=== PATIENT | female | born 1955 | race Caucasian/White ===

== ENCOUNTER 2020-03-29 15:00 | Outpatient (REF) | payer MEDICARE, MEDICAID, SELFPAY ==
--- NOTE | 2020-03-29 15:12 | XR_ITS ---
EXAMINATION: XR LUMBOSACRAL SPINE CLINICAL INFORMATION: Low back injury COMPARISON: Previous x-ray February 2018 and lumbar spine MRI October 2006 TECHNIQUE: Three views of the lumbosacral spine. FINDINGS: Bone alignment is normal. No fracture or dislocation is seen. There is degenerative disc disease at L1-L2. Disc spaces are otherwise normal. There is a sacralization of the right L5 transverse process. XR/XR lumbar spine 2-3V IMPRESSION: Degenerative disc disease at L1 to and sacralization of the right L5 transverse process.
== END 2020-03-29 15:01 | disposition home or self-care (01) ==
LOC: HO.HMGCX 15:00
PROVIDERS: PCP Internal Medicine; Visit Provider Nurse Practitioner Family
DX: S39.92XA Unspecified injury of lower back, initial encounter (principal)
CPT/HCPCS: 72100

== ENCOUNTER → 2020-04-12 14:48 | Outpatient (BNVA) | payer MEDICARE, MEDICAID, SELFPAY | PROVIDERS: PCP Internal Medicine; Visit Provider Urology | DX: Z13.89 Encounter for screening for other disorder (principal) | CPT/HCPCS: Q3014 ==

== ENCOUNTER 2020-04-29 10:20 | Outpatient (REF) | payer MEDICARE, MEDICAID, SELFPAY | END 2020-04-29 10:21 | disposition home or self-care (01) | LOC: HO.LAB 10:20 | PROVIDERS: Visit Provider Internal Medicine | DX: Z20.822 Contact with and (suspected) exposure to COVID-19 (principal) | CPT/HCPCS: 36415; C9803; U0003 ==

== ENCOUNTER 2020-06-28 06:07 | Outpatient (REF) | payer MEDICARE, MEDICAID, SELFPAY ==
[2020-06-28 11:37] LABS: Alanine Aminotransferase 23 U/L (0-31); Aspartate Amino Transferase 20 U/L (5-31); Cholesterol 206 mg/dL; HDL Cholesterol 57 mg/dL; LDL Cholesterol Calculated 123 mg/dl; Triglycerides 130 mg/dL
[2020-06-28 11:59] LABS: Vitamin D 25-OH Total 45.2 ng/mL (>30)
== END 2020-06-28 06:08 | disposition home or self-care (01) ==
LOC: HO.HMGCLDS 06:07
PROVIDERS: PCP Internal Medicine; Visit Provider Internal Medicine
DX: E78.2 Mixed hyperlipidemia (principal); Z78.0 Asymptomatic menopausal state
CPT/HCPCS: 36415; 80061; 82306; 84450; 84460

== ENCOUNTER 2020-10-03 09:53 | Outpatient (REF) | payer MEDICARE, MEDICAID, SELFPAY ==
--- NOTE | ~2020-10-03 | US_ITS ---
EXAMINATION: US RETROPERITONEAL LIMITED (RENAL ONLY) CLINICAL INFORMATION: Cyst of kidney. COMPARISON: Ultrasound renals 10/29/2018 and 10/30/2017. CT abdomen/pelvis 10/31/2011. TECHNIQUE: Real-time imaging of the kidneys. FINDINGS: RIGHT KIDNEY: 12 x 4.4 x 5.2 cm (SAG x AP x TRV). The kidney is normal in size, contour, and echogenicity. Renal cortical thickness is normal. No calculi or focal parenchymal lesions. No hydronephrosis. LEFT KIDNEY: 11.4 x 5.2 x 5.1 cm (SAG x AP x TRV). The kidney is normal in size, contour, and echogenicity. Renal cortical thickness is normal. No renal calculi or hydronephrosis. There are 3 anechoic cysts. 1. A lower pole cyst measuring 5.8 x 4.9 x 5.2 cm. 2. A lower pole cyst measuring 4.6 x 3.5 x 3.9 cm. 3. An upper pole cyst measuring 2.2 x 2.0 x 2.3 cm. US/US renal BI IMPRESSION: Multiple left renal cysts. There are no echogenic renal calculi or hydronephrosis.
== END 2020-10-03 09:54 | disposition home or self-care (01) ==
LOC: HO.US 09:53
PROVIDERS: PCP Internal Medicine; Visit Provider Urology
DX: N28.1 Cyst of kidney, acquired (principal)
CPT/HCPCS: 76775

== ENCOUNTER 2020-12-02 09:42 | Outpatient (REF) | payer MEDICARE, MEDICAID, SELFPAY ==
--- NOTE | ~2020-12-02 | XR_ITS ---
EXAMINATION: XR THORACIC SPINE CLINICAL INFORMATION: Back pain. COMPARISON: None TECHNIQUE: 3 views of the thoracic spine were obtained. FINDINGS: There is normal thoracic kyphosis. There is minimal scoliosis. The vertebral heights, alignment and disc heights are normal. No visible acute fracture or dislocation seen. No lytic or sclerotic process seen. The paravertebral soft tissues are normal. There are postsurgical changes in the mediastinum from previous intervention. XR/XR thoracic spine 3V IMPRESSION: Minimal scoliosis. Otherwise unremarkable dorsal spine exam.
== END 2020-12-02 09:43 | disposition home or self-care (01) ==
LOC: HO.HMGCX 09:42
PROVIDERS: PCP Internal Medicine
DX: R39.15 Urgency of urination (principal); R35.1 Nocturia; N28.1 Cyst of kidney, acquired; M54.9 Dorsalgia, unspecified; Z88.5 Allergy status to narcotic agent; Z88.7 Allergy status to serum and vaccine; Z88.8 Allergy status to other drugs, medicaments and biological substances
CPT/HCPCS: 51798; 72072; 99212

== ENCOUNTER 2021-03-07 05:59 | Outpatient (REF) | payer MEDICARE, MEDICAID, SELFPAY ==
[2021-03-07 11:48] LABS: MANUAL DIFF FLAG NO
[2021-03-07 11:54] LABS: Basophils Absolute Auto 0.1 X10*3/uL (0.0-0.2); Basophils Percent Auto 0.9 % (0-2); Eosinophils Absolute Auto 0.2 X10*3/uL (0.0-0.4); Eosinophils Percent Auto 2.7 % (0-4); Hematocrit 41.3 % (37.0-47.0); Hemoglobin 13.5 g/dl (12.0-16.0); Imm Gran Abs Auto 0.02 X10*3/uL (0.00-0.03); Imm Gran Pct Auto 0.2 % (0.0-0.4); Lymphocytes Absolute Auto 2.7 X10*3/uL (1.2-4.9); Lymphocytes Percent Auto 31.2 % (20-40); Mean Corpuscular HGB Conc 32.7 g/dl (31.0-35.0); Mean Corpuscular Hemoglobin 29.3 pg (27.0-33.0); Mean Corpuscular Volume 89.8 fL (80.0-98.0); Mean Platelet Volume 11.2 fL (9.4-12.3); Monocytes Absolute Auto 0.9 X10*3/uL (0.1-1.2); Monocytes Percent Auto 10.4 % (2-11); Neutrophils Absolute Auto 4.7 x10*3/uL (2.0-8.3); Neutrophils Percent Auto 54.6 % (45-73); Platelet Count 215 X10*3/uL (160-400); Red Cell Distribution Width 13.1 % (11.0-16.0); White Blood Count 8.7 X10*3/uL (4.8-10.8)
[2021-03-07 12:09] LABS: Alanine Aminotransferase 22 U/L (0-31); Anion Gap 12 (12-20); Aspartate Amino Transferase 19 U/L (5-31); Blood Urea Nitrogen 10 mg/dL (9-16); Calcium 9.4 mg/dL (8.4-10.2); Carbon Dioxide 27 mmol/L (22-29); Chloride 104 mmol/L (96-108); Cholesterol 195 mg/dL; Estimated Glomerular Filt Rate > 60; Glucose Fasting 114 mg/dL (60-99); HDL Cholesterol 37 mg/dL; LDL Cholesterol Calculated 100 mg/dl; Potassium 4.2 mmol/L (3.3-5.1); Sodium 139 mmol/L (135-145); Triglycerides 293 mg/dL
[2021-03-07 12:32] LABS: Vitamin D 25-OH Total 28.1 ng/mL (>30)
== END 2021-03-07 06:00 | disposition home or self-care (01) ==
LOC: HO.HMGCLDS 05:59
PROVIDERS: PCP Internal Medicine; Visit Provider Internal Medicine
DX: E78.2 Mixed hyperlipidemia (principal); K21.00 Gastro-esophageal reflux disease with esophagitis, without bleeding; I10 Essential (primary) hypertension; Z78.0 Asymptomatic menopausal state
CPT/HCPCS: 36415; 80048; 80061; 82306; 84450; 84460; 85025

== ENCOUNTER 2021-03-31 08:06 | Outpatient (REF) | payer MEDICARE, MEDICAID, SELFPAY ==
--- NOTE | ~2021-03-31 | MM_ITS ---
EXAMINATION: BONE DENSITOMETRY CLINICAL INDICATION: Other specified disorders of bone density and structure. COMPARISON: Previous BD dated 07/22/2018 and baseline BD dated 12/31/2008. TECHNIQUE: Using a [employer] DXA System (software version: 13.1) manufactured by [employer], dual-energy x-ray absorptiometry was performed of the lumbar spine and left hip. The images are of good technical quality. Summary results are attached. FINDINGS: AP SPINE L1-L4: Current: BMD 1.071 g/cm2, Z-score 0.2, T-score -0.9, normal, 3.7% increase from previous, 20.5% increase from baseline (<5% change is not significant). Prior: BMD 1.033 g/cm2. Baseline: BMD 0.889 g/cm2. LEFT FEMUR, NECK: Current: BMD 0.999 g/cm2, Z-score 0.9, T-score -0.3, normal. Prior: BMD 0.971 g/cm2. Baseline: BMD 0.931 g/cm2. LEFT FEMUR, TOTAL: Current: BMD 1.082 g/cm2, Z-score 1.5, T-score 0.6, normal, 1.3% increase from previous, 8.2% increase from baseline (<5% change is not significant). Prior: BMD 1.068 g/cm2. Baseline: BMD 1.000 g/cm2. IDENTIFIED RISK FACTORS: Rheumatoid arthritis, renal, recurrent falls. Early menopause, secondary osteoporosis, bilateral oophorectomy. HISTORY OF FRACTURE: None listed. MEDICATIONS: Calcium supplements or multivitamin, vitamin D, bisphosphonates. MM/XR DEXA axial skeleton IMPRESSION: 1. DIAGNOSIS: Normal bone density based on the lowest T-score value of -0.9 in the lumbar spine applying World Health Organization criteria. 2. 10-YEAR FRACTURE RISK PREDICTION, FRAX: Major osteoporotic fracture (clinical spine, forearm, hip or shoulder) 4.8%. Hip fracture 0.2%. 3. Treatment Recommendations: NOF guidelines recommend consideration for treatment in postmenopausal women and men age 50 and older presenting with the following: -A hip or vertebral (clinical or morphometric) fracture. -T-score less than or equal to -2.5 at the femoral neck or spine after appropriate evaluation to exclude secondary causes. -Low bone mass at the hip or spine and a 10-year fracture probability by FRAX of greater than or equal to 3% for hip fracture or greater than or equal to 20% for major osteoporotic fracture based on the [place] adapted WHO algorithm. 4. Other Recommendations: All treatment decisions require clinical judgment and consideration of individual patient factors, including patient preferences, comorbidities, previous drug use, risk factors not captured in the FRAX model (e.g. frailty, falls, vitamin D deficiency, increased bone turnover, interval significant decline in bone density) and possible under or overestimation of fracture risk by FRAX. FUTURE SCAN RECOMMENDATION: People with diagnosed cases of osteoporosis or at high risk for fracture should have regular bone mineral density tests. For patients eligible for Medicare, routine testing is allowed once every 2 years. The testing frequency can be increased to one year for patients who have rapidly progressing disease, those who are receiving or discontinuing medical therapy to restore bone mass, or have additional risk factors.
== END 2021-03-31 08:07 | disposition home or self-care (01) ==
LOC: HO.MAMMO 08:06
PROVIDERS: Visit Provider Internal Medicine
DX: M85.88 Other specified disorders of bone density and structure, other site (principal); M06.9 Rheumatoid arthritis, unspecified; Z91.81 History of falling; Z90.722 Acquired absence of ovaries, bilateral; Z78.0 Asymptomatic menopausal state
CPT/HCPCS: 77080

== ENCOUNTER 2021-06-30 06:10 | Outpatient (REF) | payer MEDICARE, MEDICAID, SELFPAY ==
[2021-06-30 12:27] LABS: Alanine Aminotransferase 21 U/L (0-31); Anion Gap 12 (12-20); Aspartate Amino Transferase 23 U/L (5-31); Blood Urea Nitrogen 12 mg/dL (9-16); Calcium 9.4 mg/dL (8.4-10.2); Carbon Dioxide 27 mmol/L (22-29); Chloride 105 mmol/L (96-108); Cholesterol 183 mg/dL; Estimated Glomerular Filt Rate > 60; Glucose Fasting 123 mg/dL (60-99); HDL Cholesterol 40 mg/dL; LDL Cholesterol Calculated 104 mg/dl; Sodium 140 mmol/L (135-145); Triglycerides 198 mg/dL
[2021-06-30 12:31] LABS: Vitamin D 25-OH Total 63.8 ng/mL (>30)
== END 2021-06-30 06:11 | disposition home or self-care (01) ==
LOC: HO.HMGCLDS 06:10
PROVIDERS: Visit Provider Internal Medicine
DX: E78.2 Mixed hyperlipidemia (principal); R73.01 Impaired fasting glucose; Z78.0 Asymptomatic menopausal state
CPT/HCPCS: 36415; 80048; 80061; 82306; 84450; 84460

== ENCOUNTER 2021-12-11 06:05 | Outpatient (REF) | payer MEDICARE, MEDICAID, SELFPAY ==
[2021-12-11 12:08] LABS: Alanine Aminotransferase 19 U/L (0-31); Anion Gap 13 (12-20); Aspartate Amino Transferase 21 U/L (5-31); Blood Urea Nitrogen 11 mg/dL (9-16); Calcium 9.2 mg/dL (8.4-10.2); Carbon Dioxide 25 mmol/L (22-29); Chloride 108 mmol/L (96-108); Cholesterol 200 mg/dL; Estimated Glomerular Filt Rate > 60; Glucose Fasting 111 mg/dL (60-99); HDL Cholesterol 43 mg/dL; LDL Cholesterol Calculated 120 mg/dl; Sodium 142 mmol/L (135-145); Triglycerides 185 mg/dL
[2021-12-11 12:14] LABS: Vitamin D 25-OH Total 39.1 ng/mL (>30)
== END 2021-12-11 06:06 | disposition home or self-care (01) ==
LOC: HO.HMGCLDS 06:05
PROVIDERS: PCP Internal Medicine; Visit Provider Internal Medicine
DX: E78.2 Mixed hyperlipidemia (principal); M85.88 Other specified disorders of bone density and structure, other site; R73.01 Impaired fasting glucose; Z78.0 Asymptomatic menopausal state
CPT/HCPCS: 36415; 80048; 80061; 82306; 84450; 84460

== ENCOUNTER 2021-12-13 09:44 | Outpatient (REF) | payer MEDICARE, MEDICAID, SELFPAY ==
--- NOTE | ~2021-12-13 | US_ITS ---
EXAMINATION: US RETROPERITONEAL LIMITED (RENAL ONLY) CLINICAL INFORMATION: Cyst of kidney. COMPARISON: Ultrasound renal 10/03/2020. Ultrasound renals only 10/29/2018. TECHNIQUE: Real-time imaging of the kidneys. FINDINGS: RIGHT KIDNEY: 11.9 x 4.83 x 5.2 cm (SAG x AP x TRV). The kidney is normal in size, contour, and echogenicity. Renal cortical thickness is normal. No calculi or focal parenchymal lesions. No hydronephrosis. LEFT KIDNEY: 10.6 x 6.4 x 6.1 cm (SAG x AP x TRV). The kidney is normal in size, contour, and echogenicity. Renal cortical thickness is normal. There are 3 left renal cysts. There is a 7 x 5 x 7 cm simple cyst in the midpole. This measured 5.8 x 4.9 x 5.2 cm on previous exam and is likely increased in size. There is a 4.2 x 4 x 3.4 cm simple cyst in the lower pole. There is a 2.4 x 2 x 1.7 cm simple cyst in the upper pole. These are unchanged. No renal calculi or hydronephrosis. US/US renal BI IMPRESSION: Left renal cysts. There is slight interval increase in size in the largest cyst in the midpole. Remainder of the left renal cysts are unchanged. Normal right kidney..
== END 2021-12-13 09:45 | disposition home or self-care (01) ==
LOC: HO.US 09:44
DX: N28.1 Cyst of kidney, acquired (principal)
CPT/HCPCS: 76775

== ENCOUNTER 2022-03-27 06:51 | Outpatient (REF) | payer MEDICARE, MEDICAID, SELFPAY ==
[2022-03-27 14:00] LABS: Alanine Aminotransferase 21 U/L (0-31); Anion Gap 9 (12-20); Aspartate Amino Transferase 18 U/L (5-31); Blood Urea Nitrogen 12 mg/dL (9-16); Calcium 9.6 mg/dL (8.4-10.2); Carbon Dioxide 31 mmol/L (22-29); Chloride 106 mmol/L (96-108); Cholesterol 216 mg/dL; Estimated Glomerular Filt Rate > 60; Glucose Fasting 102 mg/dL (60-99); HDL Cholesterol 45 mg/dL; LDL Cholesterol Calculated 137 mg/dl; Potassium 4.3 mmol/L (3.3-5.1); Sodium 142 mmol/L (135-145); Triglycerides 173 mg/dL; Vitamin D 25-OH Total 41.4 ng/mL (>30)
[2022-03-27 15:21] LABS: Estimated Average Glucose 126 mg/dL
== END 2022-03-27 06:52 | disposition home or self-care (01) ==
LOC: HO.HMGCLDS 06:51
PROVIDERS: PCP Internal Medicine; Visit Provider Internal Medicine
DX: Z00.01 Encounter for general adult medical examination with abnormal findings (principal); R73.01 Impaired fasting glucose; E78.2 Mixed hyperlipidemia; E89.40 Asymptomatic postprocedural ovarian failure; Z85.3 Personal history of malignant neoplasm of breast
CPT/HCPCS: 36415; 80048; 80061; 82306; 83036; 84450; 84460

== ENCOUNTER 2022-08-07 06:00 | Outpatient (REF) | payer MEDICARE, MEDICAID, SELFPAY ==
[2022-08-07 12:12] LABS: Estimated Average Glucose 123 mg/dL; Hemoglobin A1c % 5.9 %
[2022-08-07 12:27] LABS: Alanine Aminotransferase 20 U/L (0-31); Aspartate Amino Transferase 19 U/L (5-31); Cholesterol 232 mg/dL; Glucose Fasting 112 mg/dL (60-99); HDL Cholesterol 42 mg/dL; LDL Cholesterol Calculated 117 mg/dl; Triglycerides 369 mg/dL
== END 2022-08-07 06:01 | disposition home or self-care (01) ==
LOC: HO.HMGCLDS 06:00
PROVIDERS: PCP Internal Medicine; Visit Provider Internal Medicine
DX: E78.2 Mixed hyperlipidemia (principal); R73.01 Impaired fasting glucose; Z78.0 Asymptomatic menopausal state; Z87.39 Personal history of other diseases of the musculoskeletal system and connective tissue
CPT/HCPCS: 36415; 80061; 82306; 82947; 83036; 84450; 84460

== ENCOUNTER 2022-08-08 10:16 | Outpatient (AMB) | payer MEDICARE, MEDICAID, SELFPAY ==
--- NOTE | 2022-08-08 10:58 | MHC.PC.OV ---
Vital Signs 08/08/22 11:12 Height 5 ft 5 in Weight 160 lb BMI 26.6 BP 106/74 Blood Pressure Location Lt brachial Position Sitting Pulse 79 Pulse Source Pulse Oximeter Pulse Oximetry (%) 96 Oxygen Delivery Method Room Air Intake Visit Reasons: Follow up labs Intake Note: Pt is here to f/u her labs Allergies morphine Allergy (Severe, Verified 06/14/23 07:26) Anxiety diphenhydramine [From BENADRYL] Adverse Reaction (Intermediate, Verified 06/14/23 07:26) ANXIETY, AGITATION hydromorphone [HYDROMORPHONE] Adverse Reaction (Intermediate, Verified 06/14/23 07:26) SHAKING,CONFUSION,AGITATION, hyperacitivity codeine [Codeine] Adverse Reaction (Mild, Verified 06/14/23 07:26) AGITATION prochlorperazine [From Compazine] Adverse Reaction (Mild, Verified 06/14/23 07:26) AGITATION, hyperactivity flu vaccine Adverse Reaction (Intermediate, Uncoded 06/14/23 07:26) severe flu like symptoms Medication List - Last Reconciled 08/08/22 by Brittany Rodgers MD Advair Diskus 500-50 mcg/dose (fluticasone propion-salmeterol) 1 inh inhalation BID NS albuterol sulfate 2.5 mg (3 mL) inhalation Q6H PRN albuterol sulfate 90 mcg/actuation 2 inhalations inhalation Q6H PRN alendronate 70 mg PO QWEEK calcium carbonate (Calcium 500) 500 mg PO DAILY cholecalciferol (vitamin D3) 50 mcg PO DAILY diazepam 500f10 mg PO BEDTIME PRN dicyclomine 20 mg PO BID finasteride 1 mg PO DAILY fluocinolone-hydroq.-tretinoin 0.01-4-0.05 % 1 appl topical BEDTIME fluticasone propionate 50 mcg/actuation (Allergy Relief (fluticasone)) 1 spray intranasal DAILY hyoscyamine sulfate 0.125 mg PO BID-QID PRN ibuprofen 0 mg PO lacosamide 150 mg PO DAILY lidocaine 5% 1 patch topical DAILY loratadine 10 mg PO DAILY meclizine 12.5 mg PO TID PRN meloxicam 15 mg PO DAILY montelukast 10 mg PO DAILY nebulizers As directed omega-3 fatty acids (Fish Oil Concentrate) 1,000 mg PO DAILY omeprazole 40 mg PO DAILY onabotulinumtoxinA (Botox) intradermal peg [id number] 1-0.2-0.2 % (Artificial Tears ([id number])) 1 drp ophthalmic (eye) QID polyethylene glycol 3350 17 grams PO DAILY pravastatin 40 mg PO BEDTIME rizatriptan 0 mg PO tolterodine ER 8 mg (2 x 4 mg) PO BEDTIME 90 days Tobacco use date assessed: 08/08/22 Fall risk assessment: No Falls in past year Last assessed Fall Risk: 08/08/22 HPI Follow up labs HPI Details 67 year old lady , here for follow up on her Dyslipidemia. Take Pravastatin 40 mg daily , compliant with diet but not getting any regular exercise. Latest fasting labs showed higher triglycerides, but lower LDL cholesterol as compared to last check. She also has Prediabetes with latest fasting glucose at 112 mg/dl , but HBA1c is 5.9%. Laboratory Tests 03/27/22 08/07/22 08/07/22 07:05 06:05 06:05 Fasting Glucose 112 H Estimat Average Gl ucose 123 Hemoglobin A1c % 5.9 AST 19 ALT 20 Triglycerides 173 369 Cholesterol 216 232 LDL Cholesterol, C alc 137 117 HDL Cholesterol 45 42 25-OH Vitamin D To dana 41.4 48.0 PFSH Medical History (Updated 07/02/23 @ 13:48 by Brittany Rodgers MD) Peripheral venous insufficiency Seasonal allergies Urinary incontinence Asthma Elevated cholesterol Odynophagia Fibromyalgia affecting multiple sites History of osteopenia Hx of breast cancer Glaucoma Impaired fasting glucose Mild intermittent asthma Osteopenia of lumbar spine Swelling of lower leg Migraine Generalized anxiety disorder Irritable bowel syndrome with diarrhea History of breast cancer GERD with esophagitis Osteoarthritis Mixed dyslipidemia Renal cyst Urgency of micturition Urge incontinence Surgical History (Updated 06/14/23 @ 08:27 by Margo Mendoza) H/O vascular surgery Hx of right knee surgery Hx of sinus surgery H/O colonoscopy History of esophagogastroduodenoscopy (EGD) History of lumpectomy of right breast History of partial mastectomy of left breast History of right cataract surgery H/O bilateral oophorectomy S/P right knee arthroscopy History of foot surgery Family History Father Essential hypertension Diabetes mellitus Dyslipidemia CVA (cerebral vascular accident) Mental health disorder Mother Diabetes mellitus Dyslipidemia Essential hypertension Brother Diabetes mellitus Dyslipidemia Essential hypertension Maternal Aunt Ovarian cancer Paternal Aunt Mental health disorder Social History Housing: Apartment Alcohol intake: never Patient Tobacco Use Status: Never used Tobacco e-Cigarette/Vaping Use: Never Used Use of substances other than those prescribed or required for medical reasons: No Are you DNR?: No Advance Directives: No Advance Directives Information Provided: Yes Current occupational status: unemployed Cognitive needs: No Hearing needs: No Vision needs: No Questionnaire PHQ-9 Over the last 2 weeks, how often have you been bothered by any of the following problems? 1. Little interest or pleasure in doing things: several days 2. Feeling down, depressed, or hopeless: not at all 3. Trouble falling or staying asleep, or sleeping too much: more than half the days 4. Feeling tired or having little energy: several days 5. Poor appetite or overeating: several days 6. Feeling bad about yourself - or that you are a failure or have let yourself or your family down: not at all 7. Trouble concentrating on things, such as reading the newspaper or watching television: not at all 8. Moving or speaking so slowly that other people could have noticed. Or the opposite - being so fidgety or restless that you have been moving around a lot more than usual: not at all 9. Thoughts that you would be better off or of hurting yourself in some way: not at all Total score: 5 Depression Screening Interpretation: Negative 88345 - PHQ-9 Billing: Yes Source: Developed by Drs. Willam Goodman, Shahana Greenberg, Vic Harrison and colleagues, with an educational willis from [employer]. Thrive Questionnaire Declines Thrive assessment: No Date Thrive assessed: 08/08/22 I am a: Patient What is your living situation today?: I have a steady place to live Within the past 12 months, did the food you bought not last and you didn't have the money to get more?: Sometimes True Within the past 12 months, did you worry whether your food would run out before you got money to buy more?: Sometimes True Do you have trouble paying for medicines?: Yes Do you have trouble getting transportation to medical appointments?: No Do you have trouble paying your heating and electricity bill?: Yes Do you have trouble taking care of your child, family member or friend?: No Do you have trouble with day-to-day activities such as bathing, preparing meals, shopping, managing finances, etc.?: Yes Are you currently unemployed and looking for a job?: No Are you interested in more education?: No AUDIT C Alcohol Use Questionnaire (AUDIT-C) 1. How often do you have a drink containing alcohol?: Never Total Score: 0 INGRID-7 AMB Questionnaire INRGID-7 Date INGRID - 7 assessed: 08/08/22 Feeling nervous, anxious, or on edge: 1 = Several days Not being able to stop or control worryin = Not at all Worrying too much about different things: 1 = Several days Trouble relaxin = Several days Being so restless that it is hard to sit still: 0 = Not at all Becoming easily annoyed or irritable: 0 = Not at all Feeling afraid as if something awful might happen: 0 = Not at all Total INGRID-7 score (0-4 normal; 5-9 mild; 10-14 moderate; 15-21 severe): 3 Source: Developed by Drs. Willam Goodman, Shahana Greenberg, Vic Harrison and colleagues, with an educational willis from [employer]. INGRID-7 Assessment Billing INGRID-7 Assessment Tool: INGRID-7 Assessment 87174 Review of Systems Const Reports no additional complaints Eyes Reports no additional complaints ENT Denies dizziness, Denies nasal congestion and Denies post nasal drip Card Denies chest pain, Denies rapid heart rate, Denies lightheadedness and Denies dyspnea Resp Denies cough and Denies dyspnea GI Denies abdominal pain, Denies change in bowel habits and Denies heartburn Musc Denies abnormal gait and Reports stiffness Neuro Denies abnormal gait, Denies dizziness and Denies focal weakness Psych Reports no additional complaints Physical exam (Primary Care) Vital Signs: Last Vital Signs Pulse 79 08/08/22 11:12 BP 106/74 08/08/22 11:12 Pulse Ox 96 08/08/22 11:12 Oxygen Delivery Method Room Air 08/08/22 11:12 BMI result Body Mass Index 26.6 Tobacco/Smoking Status: Tobacco use Status Tobacco use date assessed 08/08/22 08/08/22 11:17 Patient Tobacco Use Status Never used Tobacco 08/08/22 10:58 e-Cigarette/Vaping Use Never Used 08/08/22 10:58 PHQ-9: PHQ-9 Score PHQ-9: Total score 08/08/22 11:45 Depression Screening Interpretation: Negative Thrive Assessment: Date of Thrive Assessment Date Thrive assessed 08/08/22 08/08/22 11:20 Const Other: Alert oriented x3, no acute Orientation/consciousness: patient oriented x3 HENMT Ears: external ears normal General nose exam: Normal external nose present Face and sinus: Yes face symmetric Mouth: Normal oral and palatal mucosa present, oropharynx normal and moist mucous membranes Eyes General: appearance normal, both eyes and all related structures Neck Neck: Yes full ROM and Yes supple Resp Auscultation: clear to auscultation bilaterally Cardio Other: S1-S2 present regular rate and rhythm GI Palpation (GI): Soft to palpation, nontender, no guarding and no masses Neuro General: patient oriented x3, gait normal, Normal light touch and pain sensation, no focal motor deficits, CN's II-XI intact bilaterally and normal sensation to monofilament Extrem General: Yes full ROM, Yes no joint enlargement, Yes no pedal edema and Yes normal gait Results Reviewed Results Reviewed: Laboratory Tests 08/07/22 06:05 Fasting Glucose 112 H Estimat Average Glucose 123 Hemoglobin A1c % 5.9 loreto: Teri Alexander Age/Sex: 67/F : 1955 Unit#: [id number] Attend Dr: Brittany Rodgers MD Re08/07/22 Status: DEP [facility] Disch: SPEC : [id number] PORFIRIO: 08/07/22 STATUS: COMP REQ : [id number] RECD: 08/07/[address]: Brittany Rodgers MD COMP: 08/07/22 ENTERED: 08/07/[address]: ORDERED: Glu Fasting, AST, ALT, Lipid Panel, Vitamin D 25-OH Test Result Flag Reference FBS 112 H 60-99 mg/dL A fasting glucose from 100-125 mg/dl is considered impaired (pre-diabetes). AST (GOT) 19 5-31 U/L ALT (GPT) 20 0-31 U/L Triglyceride 369 mg/dL Desirable Triglyceride: less than 150 mg/dL Borderline High Triglyceride 150-199 mg/dL High Triglyceride: 200-499 mg/dL Very High Triglyceride: greater than or equal to 5OO mg/dL Chol 232 mg/dL Desirable Cholesterol: less than 200 mg/dL Borderline High Cholesterol: 200-239 mg/dL High Cholesterol: greater than 239 mg/dL LDL Calculated 117 mg/dl Desirable LDL: less than 100 mg/dL Near Optimal/Above Optimal LDL: 110-129 mg/dL Borderline High LDL: 130-159 mg/dL High LDL: 160-189 mg/dL Very High LDL: greater than or equal to 190 mg/dL HDL 42 mg/dL Desirable HDL: greater than 40 mg/dL Note: This HDL assay may give artificially low results in patients with liver disease. Vit D 25-OH Tot 48.0 >30 ng/mL Health Based Reference Values* < 20 ng/mL Deficient 20-30 ng/mL Insufficient > 30 ng/mL Sufficient Assessment and Plan Assessment & Plan (1) Impaired fasting glucose: Code(s): R73.01 - Impaired fasting glucose Plan: Your fasting blood sugar is elevated above 100 mg/dL. Impaired glucose metabolism increases your risk for developing diabetes mellitus type 2, as well as heart attack and stroke later on. Lifestyle changes at just weight loss, healthy eating habits, and regular exercise are important, and can prevent the progression to diabetes (2) Mixed dyslipidemia: Code(s): E78.2 - Mixed hyperlipidemia Plan: Reviewed recent fasting lipid profile with patient with higher levels of triglycerides, but normal LDL cholesterol . Continue pravastatin, and [employer] 3 fatty acid supplements at the same dose , in addition to adherence to low-cholesterol diet and regular exercise, at least 30 minutes 3 to 4 times a week. Advised patient to make healthy food choices, eat more fruits, vegetables, whole grains, wild caught fish and low-fat dairy. Limit amount of meat and fried or fatty food products, as well as processed foods and fast foods. Recheck fasting lipids in 6months Orders: Orders Alanine Aminotransferase 6 Months R73.01 - Impaired fasting glucose, E78.2 - Mixed hyperlipidemia Aspartate Amino Transferase 6 Months R73.01 - Impaired fasting glucose, E78.2 - Mixed hyperlipidemia Lipid Panel 6 Months R73.01 - Impaired fasting glucose, E78.2 - Mixed hyperlipidemia Glucose Fasting 6 Months R73.01 - Impaired fasting glucose, E78.2 - Mixed hyperlipidemia Hemoglobin A1c 6 Months R73.01 - Impaired fasting glucose, E78.2 - Mixed hyperlipidemia Coding Level of Care Code Est Pt Level 4 (69263) Diagnoses Impaired fasting glucose R73.01 Mixed dyslipidemia E78.2 Additional Codes INGRID-7 Assessment Billing - INGRID-7 Assessment Tool: INGRID-7 Assessment 76262 ([id number])
[2022-08-08 11:12] VITALS: BP 106/74; PULSE 79; O2SAT 96; BMI 26.6
== END 2022-08-08 11:57 | disposition home or self-care (01) ==
LOC: HO.HMGC 10:16
PROVIDERS: PCP Internal Medicine; Visit Provider Internal Medicine
DX: R73.01 Impaired fasting glucose (principal); E78.2 Mixed hyperlipidemia
CPT/HCPCS: 99214

== ENCOUNTER 2022-12-12 09:23 | Outpatient (REF) | payer MEDICARE, MEDICAID, SELFPAY ==
--- NOTE | ~2022-12-12 | US_ITS ---
EXAMINATION: US RETROPERITONEAL LIMITED (RENAL ONLY) CLINICAL INFORMATION: Cyst of kidney, acquired. COMPARISON: Renal ultrasound 12/13/2021 and 10/03/2020. TECHNIQUE: Real-time imaging of the kidneys. FINDINGS: RIGHT KIDNEY: 12.2 x 4.5 x 6.2 cm (SAG x AP x TRV). The kidney is normal in size, contour, and echogenicity. Renal cortical thickness is normal. No calculi or focal parenchymal lesions. No hydronephrosis. LEFT KIDNEY: 11.1 x 5.9 x 4.8 cm (SAG x AP x TRV). The kidney is normal in size, contour, and echogenicity. Renal cortical thickness is normal. No calculi or focal parenchymal lesions. No hydronephrosis. At the upper pole, a 2.6 x 1.9 x 2.0 cm mildly complex cyst is seen, with fine septation. Previously, this measured 2.4 x 2.0 x 1.7 cm. At the lower pole, a 9.0 x 5.6 x 3.6 cm mildly complex cyst is seen, with fine septation. Previously, this measured 7.0 x 4.9 x 6.9 cm. These were seen on prior CT examinations as remote as 10/31/2011 (5:21 and 33). US/US renal BI IMPRESSION: Mildly complex cysts are redemonstrated within the left kidney, with dimensions as above. These are mildly increased from most recent prior ultrasound imaging.
== END 2022-12-12 09:24 | disposition home or self-care (01) ==
LOC: HO.HMGCX 09:23
PROVIDERS: PCP Internal Medicine; Visit Provider Urology
DX: N28.1 Cyst of kidney, acquired (principal)
CPT/HCPCS: 76775

== ENCOUNTER 2022-12-25 10:09 | Outpatient (AMB) | payer MEDICARE, MEDICAID, SELFPAY ==
--- NOTE | 2022-12-25 11:06 | A.OFFVIS_ITS ---
Intake Intake Visit Reasons: 1Y US(set) Intake Note: Patient is present for Follow Up Ultrasound Urology Med: Finasteride, Tolterodine Antibiotic Allergy: None Blood Thinner: None Pharmacy: [facility] Allergies diphenhydramine [From BENADRYL] Adverse Reaction (Intermediate, Verified 12/25/22 11:07) ANXIETY, AGITATION hydromorphone [HYDROMORPHONE] Adverse Reaction (Intermediate, Verified 12/25/22 11:07) SHAKING,CONFUSION,AGITATION, hyperacitivity codeine [Codeine] Adverse Reaction (Mild, Verified 12/25/22 11:07) AGITATION prochlorperazine [From Compazine] Adverse Reaction (Mild, Verified 12/25/22 11:07) AGITATION, hyperactivity flu vaccine Adverse Reaction (Intermediate, Uncoded 12/25/22 11:07) severe flu like symptoms Medication List - Last Reconciled 12/25/22 by Edil Ellington MD Advair Diskus 500-50 mcg/dose (fluticasone propion-salmeterol) 1 inh inhalation BID NS albuterol sulfate 2.5 mg (3 mL) inhalation Q6H PRN albuterol sulfate 90 mcg/actuation 2 inhalations inhalation Q6H PRN alendronate 70 mg PO QWEEK calcium carbonate (Calcium 500) 500 mg PO DAILY cholecalciferol (vitamin D3) 50 mcg PO DAILY diazepam 500f10 mg PO BEDTIME PRN dicyclomine 20 mg PO BID finasteride 1 mg PO DAILY fluocinolone-hydroq.-tretinoin 0.01-4-0.05 % 1 appl topical BEDTIME fluticasone propionate 50 mcg/actuation (Allergy Relief (fluticasone)) 1 spray intranasal DAILY hyoscyamine sulfate 0.125 mg PO BID-QID PRN ibuprofen 0 mg PO lacosamide 150 mg PO DAILY lidocaine 5% 1 patch topical DAILY loratadine 10 mg PO DAILY meclizine 12.5 mg PO TID PRN meloxicam 15 mg PO DAILY montelukast 10 mg PO DAILY nebulizers As directed omega-3 fatty acids (Fish Oil Concentrate) 2,000 mg PO BID omeprazole 40 mg PO DAILY onabotulinumtoxinA (Botox) intradermal peg 136-[id number]-uwqvohez 1-0.2-0.2 % (Artificial Tears ([id number])) 1 drp ophthalmic (eye) QID polyethylene glycol 3350 17 grams PO DAILY pravastatin 40 mg PO BEDTIME rizatriptan 0 mg PO tolterodine ER 8 mg (2 x 4 mg) PO BEDTIME 90 days HPI HPI Comments History of Present Illness Details Teri is a pleasant female. She is a patient of Dr. Rodgers. She seen for the following urologic conditions - complex renal cyst Has paraspinal muscle tenderness on examination Recommendation to get stretching program from chiropractor Renal cyst does not cause of discomfort Continue yearly review Complex renal cyst Stable on imaging Imaging - 10/10 renal ultrasound left multiple renal cysts up to 6 cm - 12/12 renal ultrasound multiple left renal cysts up to 8 cm PFS Medical History Generalized anxiety disorder GERD with esophagitis Glaucoma History of breast cancer History of osteopenia Hx of breast cancer Impaired fasting glucose Irritable bowel syndrome with diarrhea Migraine Mild intermittent asthma Mixed dyslipidemia Osteoarthritis Osteopenia of lumbar spine Renal cyst Swelling of lower leg Urge incontinence Urgency of micturition Surgical History H/O bilateral oophorectomy History of foot surgery History of lumpectomy of right breast History of partial mastectomy of left breast History of right cataract surgery S/P right knee arthroscopy Family History Father Essential hypertension Diabetes mellitus Dyslipidemia CVA (cerebral vascular accident) Mental health disorder Mother Diabetes mellitus Dyslipidemia Essential hypertension Brother Diabetes mellitus Dyslipidemia Essential hypertension Maternal Aunt Ovarian cancer Paternal Aunt Mental health disorder Social History Housing: Apartment Alcohol intake: never Patient Tobacco Use Status: Never used Tobacco e-Cigarette/Vaping Use: Never Used Current occupational status: unemployed Cognitive needs: No Hearing needs: No Vision needs: No Review of Systems Const Denies chills and Denies fever(s) Card Reports no additional complaints and Denies syncope Resp Denies cough GI Denies abdominal pain and Denies heartburn Reports as per HPI and Denies change in libido Neuro Denies syncope Psych Denies change in libido Endo Denies change in libido Physical Exam Const General: cooperative, healthy appearing, comfortable and no acute distress Orientation/consciousness: patient oriented x3 HEENT Face and sinus: Yes normal facial exam Mouth: moist mucous membranes Neck Neck: Yes normal visual inspection, Yes full ROM and Yes trachea midline Chest Chest palpation & inspection: normal inspection of the chest Resp Effort & Inspection: normal respiratory effort, able to speak in complete sentences and no respiratory distress GI Inspection: Yes normal to inspection Back/Spine/Pelvis Cervical Spine: normal cervical lordosis Thoracic/Lumbar Spine: thoracic and lumbar spine normal to inspection Skin General skin exam: no rashes or lesions noted Neuro General: patient oriented x3, gait normal, tone normal and moves all extremities Extrem General: Yes normal to inspection and Yes capillary refill normal Assessment & Plan Assessment & Plan (1) Renal cyst: Code(s): N28.1 - Cyst of kidney, acquired Plan Twelve month follow-up ultrasound Orders: Orders US renal BI 364 Days N28.1 - Cyst of kidney, acquired Patient Instructions: Imaging studies, laboratory and physical exam results were discussed and reviewed in detail. No major barriers to patient understanding were identified. An opportunity to ask questions regarding the treatment plan was provided. All questions were answered. The patient expressed understanding and agreement with the above treatment plan. The patient is aware they should contact our office by phone for worsening of their current condition or the appearance of new urologic symptoms. Compliance is encouraged with any medications and followup testing that is ordered. It is a privilege to participate in the urologic care of your patient. If you have any questions or concerns regarding treatment for the above conditions, or other urologic issues, please do not hesitate to contact me. The office telephone contact is [phone]. This note is constructed using voice recognition software. While every effort has been made to ensure accuracy stevedore dock errors may have been included. Yours sincerely, Dr Edil Ellington MD, [facility] - Urology Providers of Expert, Compassionate Care for the Genitourinary System Coding Level of Care Code Est Pt Level 4 (43990) Diagnoses Renal cyst N28.1
== END 2022-12-25 11:44 | disposition home or self-care (01) ==
PROVIDERS: PCP Internal Medicine; Visit Provider Urology
DX: N28.1 Cyst of kidney, acquired (principal)
CPT/HCPCS: 99213

== ENCOUNTER → 2022-12-25 10:09 | Outpatient (BNVA) | payer MEDICARE, MEDICAID, SELFPAY | PROVIDERS: Visit Provider Urology | DX: N28.1 Cyst of kidney, acquired (principal) | CPT/HCPCS: 99212 ==

== ENCOUNTER 2023-02-01 06:02 | Outpatient (REF) | payer MEDICARE, MEDICAID, SELFPAY ==
[2023-02-01 12:38] LABS: Estimated Average Glucose 126 mg/dL
[2023-02-01 12:46] LABS: Alanine Aminotransferase 20 U/L (0-31); Aspartate Amino Transferase 26 U/L (5-31); Cholesterol 207 mg/dL (<200); Glucose Fasting 107 mg/dL (60-99); HDL Cholesterol 43 mg/dL (>40); LDL Cholesterol Calculated 131 mg/dL (<100); Triglycerides 166 mg/dL (<150)
== END 2023-02-01 06:03 | disposition home or self-care (01) ==
LOC: HO.HMGCLDS 06:02
PROVIDERS: PCP Internal Medicine; Visit Provider Internal Medicine
DX: R73.01 Impaired fasting glucose (principal); E78.2 Mixed hyperlipidemia
CPT/HCPCS: 36415; 80061; 82947; 83036; 84450; 84460

== ENCOUNTER 2023-02-06 10:25 | Outpatient (AMB) | payer MEDICARE, MEDICAID, SELFPAY ==
--- NOTE | 2023-02-06 11:38 | A.OFFPC_ITS ---
Vital Signs 02/06/23 11:39 Height 5 ft 5 in Weight 165 lb 4 oz BMI 27.5 BP 118/76 Blood Pressure Location Rt brachial Position Sitting Pulse 76 Pulse Source Pulse Oximeter Pulse Oximetry (%) 97 Oxygen Delivery Method Room Air Intake Visit Reasons: 6m follow up Intake Note: pt is here to follow on her lab results Allergies morphine Allergy (Severe, Verified 07/02/23 14:15) Anxiety diphenhydramine [From BENADRYL] Adverse Reaction (Intermediate, Verified 07/02/23 14:15) ANXIETY, AGITATION hydromorphone [HYDROMORPHONE] Adverse Reaction (Intermediate, Verified 07/02/23 14:15) SHAKING,CONFUSION,AGITATION, hyperacitivity codeine [Codeine] Adverse Reaction (Mild, Verified 07/02/23 14:15) AGITATION prochlorperazine [From Compazine] Adverse Reaction (Mild, Verified 07/02/23 14:15) AGITATION, hyperactivity flu vaccine Adverse Reaction (Intermediate, Uncoded 07/02/23 14:15) severe flu like symptoms Medication List - Last Reconciled 07/02/23 by Brittany Rodgers MD albuterol sulfate 90 mcg/actuation 2 inhalations inhalation Q4-6H PRN alendronate 70 mg PO QWEEK calcium-vitamin D3-vitamin K 500-100-40 mg-unit-mcg 1 tab PO DAILY diazepam 5 mg PO BID PRN dicyclomine 20 mg PO QID ergocalciferol (vitamin D2) 400 units PO DAILY esomeprazole magnesium (Nexium) 40 mg PO DAILY finasteride 2.5 mg PO DAILY fluocinolone-hydroq.-tretinoin 0.01-4-0.05 % (Tri-Nyla) 1 appl topical BEDTIME fluocinolone-hydroq.-tretinoin 0.01-4-0.05 % 1 appl topical BEDTIME fluticasone propion-salmeterol 500-50 mcg/dose (Advair Diskus) 1 inh inhalation BID fluticasone propionate 50 mcg/actuation (Allergy Relief (fluticasone)) 1 spray intranasal DAILY [grab handles As directed] ibuprofen 800 mg PO DAILY PRN lacosamide (Vimpat) 150 mg PO DAILY meclizine 12.5 mg PO TID metronidazole 0.75% 1 appl topical BID montelukast 10 mg PO DAILY nebulizers As directed omega 0-vcl-dgo-fish oil 1,000 mg (120 mg-180 mg) (Fish Oil) 1 cap PO DAILY peg [id number]-[id number]-xsvhlnpu 1-0.2-0.2 % (Artificial Tears ([id number])) 1 drp ophthalmic (eye) DAILY pravastatin 20 mg (1/2 x 40 mg) PO BEDTIME Wixela Inhub 500-50 mcg/dose (fluticasone propion-salmeterol) 1 inh inhalation Q12H NS Tobacco use date assessed: 02/06/23 Fall risk assessment: 2 + Falls in past year Last assessed Fall Risk: 02/06/23 Dental Screening Dental Screen Date: 02/06/23 Did you have a dental visit in the last 12 months?: Yes Did you have a dental problem in the last 6 months where you did not have access to dental care?: No Was dental information given to patient?: Patient has dentist HPI 6m follow up HPI Details 68-year-old lady with hyperlipidemia, mi ld intermittent asthma, and prediabetes, here today for follow-up . She has been compliant with her diet, but unable to exercise much due to her chronic pain . She has been taking her medications as directed, asthma stable controlled on present inhalers [facility] Medical History (Updated 07/02/23 @ 14:27 by Brittany Rodgers MD) Peripheral venous insufficiency Seasonal allergies Urinary incontinence Fibromyalgia affecting multiple sites History of osteopenia Hx of breast cancer Glaucoma Impaired fasting glucose Mild intermittent asthma Migraine Generalized anxiety disorder Irritable bowel syndrome with diarrhea History of breast cancer GERD with esophagitis Osteoarthritis Mixed dyslipidemia Renal cyst Surgical History H/O vascular surgery Hx of right knee surgery Hx of sinus surgery H/O colonoscopy History of esophagogastroduodenoscopy (EGD) History of lumpectomy of right breast History of partial mastectomy of left breast History of right cataract surgery H/O bilateral oophorectomy S/P right knee arthroscopy History of foot surgery Family History Father Essential hypertension Diabetes mellitus Dyslipidemia CVA (cerebral vascular accident) Mental health disorder Mother Diabetes mellitus Dyslipidemia Essential hypertension Brother Diabetes mellitus Dyslipidemia Essential hypertension Maternal Aunt Ovarian cancer Paternal Aunt Mental health disorder Social History Housing: Apartment Alcohol intake: never Patient Tobacco Use Status: Never used Tobacco e-Cigarette/Vaping Use: Never Used Use of substances other than those prescribed or required for medical reasons: No Are you DNR?: No Advance Directives: No Advance Directives Information Provided: Yes Current occupational status: unemployed Cognitive needs: No Hearing needs: No Vision needs: No Questionnaire Thrive Questionnaire Date Thrive assessed: 08/08/22 INGRID-7 AMB Questionnaire INGRID-7 Date INGRID - 7 assessed: 10/06/21 Source: Developed by Drs. Willam Goodman, Shahana Greenberg, Vic Harrison and colleagues, with an educational willis from [employer]. Review of Systems Const Reports no additional complaints Eyes Reports no additional complaints ENT Denies dizziness, Denies nasal congestion and Denies post nasal drip Card Denies chest pain, Denies rapid heart rate, Denies lightheadedness and Denies dyspnea Resp Denies cough, Denies dyspnea and Denies wheezing GI Denies abdominal pain, Denies change in bowel habits and Denies heartburn Musc Denies abnormal gait and Reports stiffness Neuro Denies abnormal gait, Denies dizziness and Denies focal weakness Psych Reports no additional complaints Aller/Immun Denies wheezing Physical exam (Primary Care) Vital Signs: Last Vital Signs Pulse 76 02/06/23 11:39 BP 118/76 02/06/23 11:39 Pulse Ox 97 02/06/23 11:39 Oxygen Delivery Method Room Air 02/06/23 11:39 BMI result Body Mass Index 27.5 Tobacco/Smoking Status: Tobacco use Status Tobacco use date assessed 02/06/23 02/06/23 11:49 Patient Tobacco Use Status Never used Tobacco 02/06/23 11:38 e-Cigarette/Vaping Use Never Used 02/06/23 11:38 Thrive Assessment: Date of Thrive Assessment Date Thrive assessed 08/08/22 02/06/23 11:38 Const Other: Alert oriented x3, no acute Orientation/consciousness: patient oriented x3 HENMT Ears: external ears normal General nose exam: Normal external nose present Face and sinus: Yes face symmetric Mouth: Normal oral and palatal mucosa present, oropharynx normal and moist mucous membranes Eyes General: appearance normal, both eyes and all related structures Neck Neck: Yes full ROM and Yes supple Resp Auscultation: clear to auscultation bilaterally Cardio Other: S1-S2 present regular rate and rhythm GI Palpation (GI): Soft to palpation, nontender, no guarding and no masses Neuro General: patient oriented x3, gait normal, Normal light touch and pain sensation, no focal motor deficits, CN's II-XI intact bilaterally and normal sensation to monofilament Extrem General: Yes full ROM, Yes no joint enlargement, Yes no pedal edema and Yes normal gait Immunizations pneumoc 20-john conj-dip cr(PF) 0.5 mL IM syringe Performing Provider: Brittany Rodgers MD [facility] Administered by: Eneida Mccann CMA on 02/06/23 12:37 Dose Route Admin Location Dispensed Lot Number Expiration Date NDC Soft Shoe Dancer 0.5 mL IM Right Deltoid 0.5 mL [id number] 02/20/24 3728-6722-76 [employer] VIS Given Date VIS Provided VIS Publication Date 02/06/23 Single Vaccine 21 Eligibility Eligibility Date Funding Source Not VF Eligible 02/06/23 Private Results Reviewed Results Reviewed: Laboratory Tests 02/01/23 06:10 Estimat Average Glucose 126 Hemoglobin A1c % 6.0 Name: Teri Alexander Age/Sex: 67/F : 1955 Unit#: [id number] Attend Dr: Brittany Rodgers MD Re02/01/23 Status: DEP REF [facility] Disch: SPEC : [id number] PORFIRIO: 02/01/23 STATUS: COMP REQ : [id number] RECD: 02/01/[address]: Brittany Rodgers MD COMP: 02/01/23 ENTERED: 02/01/[address]: ORDERED: Glu Fasting, AST, ALT, Lipid Panel Test Result Flag Reference FBS 107 H 60-99 mg/dL A fasting glucose from 100-125 mg/dl is considered impaired (pre-diabetes). AST (GOT) 26 5-31 U/L ALT (GPT) 20 0-31 U/L Triglyceride 166 H <150 mg/dL Desirable Triglyceride: less than 150 mg/dL Borderline High Triglyceride 150-199 mg/dL High Triglyceride: 200-499 mg/dL Very High Triglyceride: greater than or equal to 5OO mg/dL Cholesterol 207 H <200 mg/dL Desirable Cholesterol: less than 200 mg/dL Borderline High Cholesterol: 200-239 mg/dL High Cholesterol: greater than 239 mg/dL LDL Calculated 131 H <100 mg/dL Desirable LDL: less than 100 mg/dL Near Optimal/Above Optimal LDL: 110-129 mg/dL Borderline High LDL: 130-159 mg/dL High LDL: 160-189 mg/dL Very High LDL: greater than or equal to 190 mg/dL HDL 43 >40 mg/dL Desirable HDL: greater than 40 mg/dL Note: This HDL assay may give artificially low results in patients with liver disease. Assessment and Plan Assessment & Plan (1) Mild intermittent asthma: Code(s): J45.20 - Mild intermittent asthma, uncomplicated Qualifiers: Asthma complication type: uncomplicated Qualified Code(s): J45.20 - Mild intermittent asthma, uncomplicated Plan: Continue with current inhalers, Prevnar 20 given today (2) Impaired fasting glucose: Code(s): R73.01 - Impaired fasting glucose Plan: Continue with Lifestyle changes at just weight loss, healthy eating habits, and regular exercise are important, and can prevent the progression to diabetes (3) Mixed dyslipidemia: Code(s): E78.2 - Mixed hyperlipidemia Plan: Fasting lipid panel reviewed with patient, LDL cholesterol slightly higher than last check, continued on pravastatin and [place] 3 fatty acid supplements (4) Hx of breast cancer: Comment: Code(s): Z85.3 - Personal history of malignant neoplasm of breast Plan: Currently followed at [facility] (5) History of osteopenia: Code(s): Z87.39 - Personal history of other diseases of the musculoskeletal system and connective tissue Plan: Repeat bone density scan ordered, continue with taking cholecalciferol and vitamin D3 supplement, advised to do some form of weight-bearing exercise, even with arm, continue with alendronate once a week Orders: Orders Pneumococcal 20 Immunization 02/06/23 Z23 - Encounter for immunization XR DEXA axial skeleton 02/06/23 Z87.39 - Personal history of other diseases of the musculoskeletal system and connective tissue, Z78.0 - Asymptomatic menopausal state Medications: New [grab handles] As directed 1 ea 0RF M79.7 - Fibromyalgia, Z85.3 - Personal history of malignant neoplasm of breast, M19.90 - Unspecified osteoarthritis, unspecified site Coding Level of Care Code Est Pt Level 4 (96034) Diagnoses Mild intermittent asthma without complication J45.20 Asthma complication type: uncomplicated Impaired fasting glucose R73.01 Mixed dyslipidemia E78.2 Hx of breast cancer Z85.3 History of osteopenia Z87.39
[2023-02-06 11:39] VITALS: BP 118/76; PULSE 76; O2SAT 97; BMI 27.5
== END 2023-02-06 12:57 | disposition home or self-care (01) ==
PROVIDERS: Visit Provider Internal Medicine
DX: J45.20 Mild intermittent asthma, uncomplicated (principal); R73.01 Impaired fasting glucose; E78.2 Mixed hyperlipidemia; Z85.3 Personal history of malignant neoplasm of breast; Z87.39 Personal history of other diseases of the musculoskeletal system and connective tissue
CPT/HCPCS: 90471; 90677; 99214

== ENCOUNTER 2023-02-20 08:06 | Outpatient (AMB) | payer MEDICARE, MEDICAID, SELFPAY ==
[2023-02-20 08:29] VITALS: BP 114/72; PULSE 76; O2SAT 96; BMI 27.6
--- NOTE | 2023-02-20 08:29 | AM.OFFWIN_ITS ---
Intake Vital Signs 02/20/23 08:29 Height 5 ft 5 in Weight 166 lb BMI 27.6 BP 114/72 Blood Pressure Location Rt brachial Position Sitting Pulse 76 Pulse Source Pulse Oximeter Pulse Oximetry (%) 96 Oxygen Delivery Method Room Air Intake Visit Reasons: EP RT Ear jimenez Patient Tobacco Use Status: Never used Tobacco Allergies diphenhydramine [From BENADRYL] Adverse Reaction (Intermediate, Verified 02/20/23 08:33) ANXIETY, AGITATION hydromorphone [HYDROMORPHONE] Adverse Reaction (Intermediate, Verified 02/20/23 08:33) SHAKING,CONFUSION,AGITATION, hyperacitivity codeine [Codeine] Adverse Reaction (Mild, Verified 02/20/23 08:33) AGITATION prochlorperazine [From Compazine] Adverse Reaction (Mild, Verified 02/20/23 08:33) AGITATION, hyperactivity flu vaccine Adverse Reaction (Intermediate, Uncoded 02/06/23 12:14) severe flu like symptoms Medication List - Last Reconciled 02/20/23 by Greg Peters MD Advair Diskus 500-50 mcg/dose (fluticasone propion-salmeterol) 1 inh inhalation BID NS albuterol sulfate 2.5 mg (3 mL) inhalation Q6H PRN albuterol sulfate 90 mcg/actuation 2 inhalations inhalation Q6H PRN calcium carbonate (Calcium 500) 500 mg PO DAILY cholecalciferol (vitamin D3) 50 mcg PO DAILY diazepam 5 mg PO BID PRN dicyclomine 20 mg PO DAILY esomeprazole magnesium (Nexium) 40 mg PO DAILY finasteride 1 mg PO DAILY fluocinolone-hydroq.-tretinoin 0.01-4-0.05 % 1 appl topical BEDTIME fluticasone propionate 50 mcg/actuation (Allergy Relief (fluticasone)) 1 spray intranasal DAILY [grab handles As directed] hyoscyamine sulfate 0.125 mg PO BID-QID PRN ibuprofen 800 mg PO BID PRN lacosamide 150 mg PO DAILY loperamide (Imodium A-D) 2 mg PO Q4H PRN loratadine 10 mg PO DAILY meclizine 12.5 mg PO TID PRN meloxicam 15 mg PO DAILY montelukast 10 mg PO DAILY nebulizers As directed omega-3 fatty acids (Fish Oil Concentrate) 2,000 mg PO BID onabotulinumtoxinA (Botox) intradermal .every 3 months peg [id number]-[id number] 1-0.2-0.2 % (Artificial Tears ([id number])) 1 drp ophthalmic (eye) QID polyethylene glycol 3350 17 grams PO DAILY pravastatin 40 mg PO BEDTIME rizatriptan 10 mg PO tolterodine ER 8 mg (2 x 4 mg) PO BEDTIME 90 days HPI EP RT Ear jimenez HPI Details Patient is a 67-year-old female came in today to be evaluated for sinus pressure and her right ear pain for the past 5 days Patient says that she cough up yellow phlegm yesterday today her ear is painful. There is no fever chills no nausea vomiting diarrhea On examination she does not have any otitis media but her ear canal is red Patient was instructed not to use Q-tips. She is tender over maxillary sinus bilateral I have sent amoxicillin for the patient She was also instructed to drink lots of fluid and may continue ibuprofen as needed. [facility], [facility] Medical History Fibromyalgia affecting multiple sites History of osteopenia Hx of breast cancer Glaucoma Impaired fasting glucose Mild intermittent asthma Osteopenia of lumbar spine Swelling of lower leg Migraine Generalized anxiety disorder Irritable bowel syndrome with diarrhea History of breast cancer GERD with esophagitis Osteoarthritis Mixed dyslipidemia Renal cyst Urgency of micturition Urge incontinence Surgical History History of lumpectomy of right breast History of partial mastectomy of left breast History of right cataract surgery H/O bilateral oophorectomy S/P right knee arthroscopy History of foot surgery Family History Father Essential hypertension Diabetes mellitus Dyslipidemia CVA (cerebral vascular accident) Mental health disorder Mother Diabetes mellitus Dyslipidemia Essential hypertension Brother Diabetes mellitus Dyslipidemia Essential hypertension Maternal Aunt Ovarian cancer Paternal Aunt Mental health disorder Social History Housing: Apartment Alcohol intake: never Patient Tobacco Use Status: Never used Tobacco e-Cigarette/Vaping Use: Never Used Current occupational status: unemployed Cognitive needs: No Hearing needs: No Vision needs: No Review of Systems Const All systems reviewed & are unremarkable except as noted in HPI and below Physical Exam Vital Signs: Last Vital Signs Pulse 76 02/20/23 08:29 BP 114/72 02/20/23 08:29 Pulse Ox 96 02/20/23 08:29 Oxygen Delivery Method Room Air 02/20/23 08:29 BMI result Body Mass Index 27.6 Const General: no acute distress HEENT Other: Mild throat erythema present, uvula midline, no exudate., discomfort over maxillary sinus with pressure, no otitis media Ears: mastoids normal General nose exam: Normal external nose present Throat: Yes posterior oropharynx abnormal Neck Neck: Yes no lymphadenopathy Resp Effort & Inspection: normal respiratory effort Auscultation: clear to auscultation bilaterally Cardio Other: S1 S2 Psych Mental Status: mental status grossly normal Assessment & Plan Assessment & Plan (1) Acute sinusitis: Code(s): J01.90 - Acute sinusitis, unspecified Qualifiers: Sinusitis location: maxillary Recurrence: non-recurrent Qualified Code(s): J01.00 - Acute maxillary sinusitis, unspecified Plan Patient is a 67-year-old female came in today to be evaluated for sinus pressure and her right ear pain for the past 5 days Patient says that she cough up yellow phlegm yesterday today her ear is painful. There is no fever chills no nausea vomiting diarrhea On examination she does not have any otitis media but her ear canal is red Patient was instructed not to use Q-tips. She is tender over maxillary sinus bilateral I have sent amoxicillin for the patient She was also instructed to drink lots of fluid and may continue ibuprofen as needed. Medications: New amoxicillin 875 mg PO BID 14 tabs 0RF 7 days Coding Level of Care Code Est Pt Level 3 (27122) Diagnoses Acute non-recurrent maxillary sinusitis J01.00 Sinusitis location: maxillary Recurrence: non-recurrent
== END 2023-02-20 09:13 | disposition home or self-care (01) ==
PROVIDERS: PCP Internal Medicine; Visit Provider Internal Medicine
DX: J01.00 Acute maxillary sinusitis, unspecified (principal)
CPT/HCPCS: 99213

== ENCOUNTER 2023-04-02 08:14 | Outpatient (REF) | payer MEDICARE, MEDICAID, SELFPAY ==
--- NOTE | ~2023-04-02 | MM_ITS ---
EXAMINATION: BONE DENSITOMETRY CLINICAL INDICATION: Personal history of other diseases of the musculoskeletal system. COMPARISON: This is the patient's baseline examination. TECHNIQUE: Using a [employer] DXA System (software version: 13.1) manufactured by [employer], dual-energy x-ray absorptiometry was performed of the lumbar spine and left hip. The images are of good technical quality. Summary results are attached. FINDINGS: LEFT FEMUR, NECK: BMD 0.962 g/cm2, Z-score 0.7, T-score -0.5, normal. LEFT FEMUR, TOTAL: BMD 1.064 g/cm2, Z-score 1.4, T-score 0.4, normal. AP SPINE L1-L4: BMD 1.064 g/cm2, Z-score 0.3, T-score -1.0, normal. IDENTIFIED RISK FACTORS: Early menopause, low calcium intake, osteoporosis, recurrent falls, renal, secondary osteoporosis (intestinal and bowel disease), bilateral oophorectomy. HISTORY OF FRACTURE: None listed. MEDICATIONS: Calcium, vitamin D, bisphosphonate. MM/XR DEXA axial skeleton IMPRESSION: 1. DIAGNOSIS: Normal bone density based on the lowest T-score value of -1.0 in the lumbar spine applying World Health Organization criteria. 2. 10-YEAR FRACTURE RISK PREDICTION, FRAX: According to the guidelines, FRAX calculation should only be performed on patients in the osteopenia bone density category. Therefore, FRAX was not performed on this patient. 3. Treatment Recommendations: NOF guidelines recommend consideration for treatment in postmenopausal women and men age 50 and older presenting with the following: -A hip or vertebral (clinical or morphometric) fracture. -T-score less than or equal to -2.5 at the femoral neck or spine after appropriate evaluation to exclude secondary causes. -Low bone mass at the hip or spine and a 10-year fracture probability by FRAX of greater than or equal to 3% for hip fracture or greater than or equal to 20% for major osteoporotic fracture based on the [place] adapted WHO algorithm. 4. Other Recommendations: All treatment decisions require clinical judgment and consideration of individual patient factors, including patient preferences, comorbidities, previous drug use, risk factors not captured in the FRAX model (e.g. frailty, falls, vitamin D deficiency, increased bone turnover, interval significant decline in bone density) and possible under or overestimation of fracture risk by FRAX. FUTURE SCAN RECOMMENDATION: People with diagnosed cases of osteoporosis or at high risk for fracture should have regular bone mineral density tests. For patients eligible for Medicare, routine testing is allowed once every 2 years. The testing frequency can be increased to one year for patients who have rapidly progressing disease, those who are receiving or discontinuing medical therapy to restore bone mass, or have additional risk factors.
== END 2023-04-02 08:15 | disposition home or self-care (01) ==
LOC: HO.MAMMO 08:14
PROVIDERS: PCP Internal Medicine; Visit Provider Internal Medicine
DX: Z13.820 Encounter for screening for osteoporosis (principal); Z78.0 Asymptomatic menopausal state; Z87.39 Personal history of other diseases of the musculoskeletal system and connective tissue
CPT/HCPCS: 77080

== ENCOUNTER 2023-06-14 06:58 | Day surgery (SDC) | payer MEDICARE, MEDICAID, SELFPAY ==
[2023-06-12 08:52] VITALS: BMI 28.5
--- NOTE | 2023-06-13 08:24 | HO.ANESPROP2 ---
Documented by User: Danisha Champion NP 06/13/23 08:25 HPI - Anesthesia Eval Consult details Narrative: 68yo F for Colonoscopy PMFSH Active Problems Active Problems: All Active Problems (Updated 06/12/23 @ 08:09 by Romina Rodarte, RN) Acute sinusitis (Acute) Fibromyalgia affecting multiple sites (Acute) History of osteopenia (Acute) Hx of breast cancer (Acute) Glaucoma (Acute) Impaired fasting glucose (Acute) Mild intermittent asthma (Acute) Migraine (Acute) Generalized anxiety disorder (Acute) GERD with esophagitis (Acute) Osteoarthritis (Acute) Mixed dyslipidemia (Acute) Renal cyst (Acute) Urge incontinence (Acute) Past Medical History Medical History (Updated 06/12/23 @ 08:09 by Romina Rodarte, RN) Peripheral venous insufficiency Seasonal allergies Urinary incontinence Asthma Elevated cholesterol Odynophagia Fibromyalgia affecting multiple sites History of osteopenia Hx of breast cancer Glaucoma Impaired fasting glucose Mild intermittent asthma Osteopenia of lumbar spine Swelling of lower leg Migraine Generalized anxiety disorder Irritable bowel syndrome with diarrhea History of breast cancer GERD with esophagitis Osteoarthritis Mixed dyslipidemia Renal cyst Urgency of micturition Urge incontinence Family History Family History Father Essential hypertension Diabetes mellitus Dyslipidemia CVA (cerebral vascular accident) Mental health disorder Mother Diabetes mellitus Dyslipidemia Essential hypertension Brother Diabetes mellitus Dyslipidemia Essential hypertension Maternal Aunt Ovarian cancer Paternal Aunt Mental health disorder Surgical History Surgical History (Updated 06/14/23 @ 08:27 by Margo Mendoza) H/O vascular surgery Hx of right knee surgery Hx of sinus surgery H/O colonoscopy History of esophagogastroduodenoscopy (EGD) History of lumpectomy of right breast History of partial mastectomy of left breast History of right cataract surgery H/O bilateral oophorectomy S/P right knee arthroscopy History of foot surgery Social History Social History Housing: Apartment Alcohol intake: never Patient Tobacco Use Status: Never used Tobacco e-Cigarette/Vaping Use: Never Used Use of substances other than those prescribed or required for medical reasons: No Are you DNR?: No Advance Directives: No Advance Directives Information Provided: Yes Current occupational status: unemployed Cognitive needs: No Hearing needs: No Vision needs: No Meds Allergies Allergy/AdvReac Type Severity Reaction Status Date / Time morphine Allergy Severe Anxiety Verified 06/14/23 07:26 diphenhydramine AdvReac Intermediate ANXIETY, Verified 06/14/23 07:26 [From BENADRYL] AGITATION hydromorphone [HYDROMORPHONE] AdvReac Intermediate SHAKING,CONFUSION,AGITATION, Verified 06/14/23 07:26 hyperacitivity codeine [Codeine] AdvReac Mild AGITATION Verified 06/14/23 07:26 prochlorperazine AdvReac Mild AGITATION, Verified 06/14/23 07:26 [From Compazine] hyperactivity flu vaccine AdvReac Intermediate severe flu Uncoded 06/14/23 07:26 like symptoms Home Medications Medication Instructions Recorded Confirmed Last Taken Type yxqrioxqedse-xxghxnqcfkfr-bgjvkqgzt 1 appl topical BEDTIME 03/29/20 06/14/23 Unknown History 0.01 %-4 %-0.05 % topical cream diazepam 5 mg tablet 5 mg PO BID PRN insomnia 02/14/23 06/14/23 Unknown History albuterol sulfate 90 mcg/actuation 2 inh inhalation Q4-6H PRN 06/12/23 06/14/23 Unknown History aerosol inhaler shortness of breath or wheezing alendronate 70 mg tablet 70 mg PO QWEEK 06/12/23 06/14/23 Unknown History calcium-vitamin D3-vitamin K 500 1 tab PO DAILY 06/12/23 06/14/23 Unknown History mg-100 unit-40 mcg chewable tablet dicyclomine 20 mg tablet 20 mg PO QID 06/12/23 06/14/23 Unknown History ergocalciferol (vitamin D2) 400 400 unit PO DAILY 06/12/23 06/14/23 Unknown History unit capsule fluticasone 500 mcg-salmeterol 50 1 inh inhalation BID 06/12/23 06/14/23 Unknown History mcg/dose blistr powdr for inhalation (Advair Diskus) lacosamide 150 mg tablet (Vimpat) 150 mg PO DAILY 06/12/23 06/14/23 Unknown History omega 5-deq-cmv-fish oil 1,000 mg 1 cap PO DAILY 06/12/23 06/14/23 06/07/23 History (120 mg-180 mg) capsule (Fish Oil) pravastatin 40 mg tablet 20 mg PO BEDTIME 06/12/23 06/14/23 Unknown History esomeprazole magnesium 40 mg 40 mg PO DAILY 06/14/23 06/14/23 Unknown History capsule,delayed release (Nexium) finasteride 5 mg tablet 2.5 mg PO DAILY 06/14/23 06/14/23 Unknown History ttqaoarhxnoo-etntlfejxkdm-dyhfkvzdf 1 appl topical BEDTIME 06/14/23 06/14/23 Unknown History 0.01 %-4 %-0.05 % topical cream (Tri-Nyla) ibuprofen 800 mg tablet 800 mg PO DAILY PRN Pain 06/14/23 06/14/23 06/11/23 History meclizine 12.5 mg tablet 12.5 mg PO TID 06/14/23 06/14/23 Unknown History metronidazole 0.75 % topical gel 1 appl topical BID 06/14/23 06/14/23 Unknown History montelukast 10 mg tablet 10 mg PO DAILY 06/14/23 06/14/23 Unknown History peg [id number]-gfgdnknz 1 1 drp ophthalmic (eye) DAILY 06/14/23 06/14/23 Unknown History %-0.2 %-0.2 % eye drops (Artificial Tears ([id number])) Exam Height,Weight and Vital Signs: Height 5 ft 4 in Weight 75.296 kg Assessment and Plan Assessment Anesthesia Assessment: Chart Reviewed Documented by User: David Pope MD 06/14/23 09:01 [facility] Past Medical History Medical History (Updated 06/12/23 @ 08:09 by Romina Rodarte, LIZA) Peripheral venous insufficiency Seasonal allergies Urinary incontinence Asthma Elevated cholesterol Odynophagia Fibromyalgia affecting multiple sites History of osteopenia Hx of breast cancer Glaucoma Impaired fasting glucose Mild intermittent asthma Osteopenia of lumbar spine Swelling of lower leg Migraine Generalized anxiety disorder Irritable bowel syndrome with diarrhea History of breast cancer GERD with esophagitis Osteoarthritis Mixed dyslipidemia Renal cyst Urgency of micturition Urge incontinence Family History Family History Father Essential hypertension Diabetes mellitus Dyslipidemia CVA (cerebral vascular accident) Mental health disorder Mother Diabetes mellitus Dyslipidemia Essential hypertension Brother Diabetes mellitus Dyslipidemia Essential hypertension Maternal Aunt Ovarian cancer Paternal Aunt Mental health disorder Family history of problems with anesthesia: No Surgical History Surgical History (Updated 06/14/23 @ 08:27 by Margo Mendoza) H/O vascular surgery Hx of right knee surgery Hx of sinus surgery H/O colonoscopy History of esophagogastroduodenoscopy (EGD) History of lumpectomy of right breast History of partial mastectomy of left breast History of right cataract surgery H/O bilateral oophorectomy S/P right knee arthroscopy History of foot surgery History of Problems with Anesthesia: No Social History Social History Housing: Apartment Alcohol intake: never Patient Tobacco Use Status: Never used Tobacco e-Cigarette/Vaping Use: Never Used Use of substances other than those prescribed or required for medical reasons: No Are you DNR?: No Advance Directives: No Advance Directives Information Provided: Yes Current occupational status: unemployed Cognitive needs: No Hearing needs: No Vision needs: No Meds Allergies Allergy/AdvReac Type Severity Reaction Status Date / Time morphine Allergy Severe Anxiety Verified 06/14/23 07:26 diphenhydramine AdvReac Intermediate ANXIETY, Verified 06/14/23 07:26 [From BENADRYL] AGITATION hydromorphone [HYDROMORPHONE] AdvReac Intermediate SHAKING,CONFUSION,AGITATION, Verified 06/14/23 07:26 hyperacitivity codeine [Codeine] AdvReac Mild AGITATION Verified 06/14/23 07:26 prochlorperazine AdvReac Mild AGITATION, Verified 06/14/23 07:26 [From Compazine] hyperactivity flu vaccine AdvReac Intermediate severe flu Uncoded 06/14/23 07:26 like symptoms Home Medications Medication Instructions Recorded Confirmed Last Taken Type lozttqdwgqvr-xcrbzoymbvgc-gqtwhtqde 1 appl topical BEDTIME 03/29/20 06/14/23 Unknown History 0.01 %-4 %-0.05 % topical cream diazepam 5 mg tablet 5 mg PO BID PRN insomnia 02/14/23 06/14/23 Unknown History albuterol sulfate 90 mcg/actuation 2 inh inhalation Q4-6H PRN 06/12/23 06/14/23 Unknown History aerosol inhaler shortness of breath or wheezing alendronate 70 mg tablet 70 mg PO QWEEK 06/12/23 06/14/23 Unknown History calcium-vitamin D3-vitamin K 500 1 tab PO DAILY 06/12/23 06/14/23 Unknown History mg-100 unit-40 mcg chewable tablet dicyclomine 20 mg tablet 20 mg PO QID 06/12/23 06/14/23 Unknown History ergocalciferol (vitamin D2) 400 400 unit PO DAILY 06/12/23 06/14/23 Unknown History unit capsule fluticasone 500 mcg-salmeterol 50 1 inh inhalation BID 06/12/23 06/14/23 Unknown History mcg/dose blistr powdr for inhalation (Advair Diskus) lacosamide 150 mg tablet (Vimpat) 150 mg PO DAILY 06/12/23 06/14/23 Unknown History omega 5-faj-ger-fish oil 1,000 mg 1 cap PO DAILY 06/12/23 06/14/23 06/07/23 History (120 mg-180 mg) capsule (Fish Oil) pravastatin 40 mg tablet 20 mg PO BEDTIME 06/12/23 06/14/23 Unknown History esomeprazole magnesium 40 mg 40 mg PO DAILY 06/14/23 06/14/23 Unknown History capsule,delayed release (Nexium) finasteride 5 mg tablet 2.5 mg PO DAILY 06/14/23 06/14/23 Unknown History npomsnciyvzc-wolywxqpzqip-aanlokirg 1 appl topical BEDTIME 06/14/23 06/14/23 Unknown History 0.01 %-4 %-0.05 % topical cream (Tri-Nyla) ibuprofen 800 mg tablet 800 mg PO DAILY PRN Pain 06/14/23 06/14/23 06/11/23 History meclizine 12.5 mg tablet 12.5 mg PO TID 06/14/23 06/14/23 Unknown History metronidazole 0.75 % topical gel 1 appl topical BID 06/14/23 06/14/23 Unknown History montelukast 10 mg tablet 10 mg PO DAILY 06/14/23 06/14/23 Unknown History peg [id number]-pmmezoxofnoe-qippkfye 1 1 drp ophthalmic (eye) DAILY 06/14/23 06/14/23 Unknown History %-0.2 %-0.2 % eye drops (Artificial Tears ([id number])) Exam Airway Mallampati Class: I TM Dist: >3cm Neck ROM: Full Heart: ok Lungs: ok Assessment and Plan Assessment Anesthesia Assessment: Anesthesia Plan Discussed Final Anesthetic Review Family History of Problems with Anesthesia: No History of Problems with Anesthesia: No NPO: Yes ASA Class: II Final Preanesthetic Review: No Changes in Pt Med Stat, Meds/Allgs Chart Reviewed, Consent Obtained/Reviewed and Anes Risks/Benef Reviewed Patient Risk: Intermediate Procedure Risk: Low Anesthetic Plan Anesthetic Plan: MAC: and Agree w/ Assess. and Plan Disposition: Standard PACU
[2023-06-14 07:27] VITALS: BP 128/75; PULSE 73; RESP 16; TEMP 37.3; O2SAT 96; BMI 28.3
[2023-06-14] MEDS: Lactated Ringers 1,000 ML 100 ML IVCONT (08:11)
--- NOTE | 2023-06-14 08:11 | P.HPSUR_ITS ---
Pre-Procedural Eval Section A - 24 Hr Update-Section A only Date of Service: 06/14/23 Section B - Complete if H&P > 30 days Chief Complaint: screening Details of Present Illness: see H&P no changes Relevant Family History (Specify if Yes): No Relevant Social History: None Present Medications: see Short Stay Collaborative assessment Medical History: No relevant PMH History of Previous Operations: No relevant previous surgery Allergies: Allergies Allergy/AdvReac Type Severity Reaction Status Date / Time morphine Allergy Severe Anxiety Verified 06/14/23 07:26 diphenhydramine AdvReac Intermediate ANXIETY, Verified 06/14/23 07:26 [From BENADRYL] AGITATION hydromorphone [HYDROMORPHONE] AdvReac Intermediate SHAKING,CONFUSION,AGITATION, Verified 06/14/23 07:26 hyperacitivity codeine [Codeine] AdvReac Mild AGITATION Verified 06/14/23 07:26 prochlorperazine AdvReac Mild AGITATION, Verified 06/14/23 07:26 [From Compazine] hyperactivity flu vaccine AdvReac Intermediate severe flu Uncoded 06/14/23 07:26 like symptoms Review of Systems Sugical H&P ROS: Negative: Constitution, Cardiovascular, Respiratory, Neurological, Psychiatric, Hem-Onc, Allergic/Immunologic, Gastrointestinal, Genitourinary, Musculoskeletal, Integumentary, Endocrine and Eyes/Ears/Nose/Throat Exam Surgical H&P Exam: Normal: HEENT, Normal: Heart, Normal: Lungs, Normal: Extrem ities, Normal: Abdomen, Normal: Skin and Normal: Neurological Plan Diagnosis/Plan: Unchanged I have reviewed the history and physical and performed a pertinent physical examination on my patient. No changes have occurred unless specified. Time Spent With Patient Time: Total time managing care of this patient today ____ minutes.
[2023-06-14 08:58] VITALS: BP 106/55; PULSE 71; RESP 18; TEMP 36.4; O2SAT 98
[2023-06-14 09:13] VITALS: BP 116/62; PULSE 69; RESP 17; TEMP 36.4; O2SAT 98
--- NOTE | 2023-06-14 09:29 | OP_ITS ---
DATE OF SERVICE: 06/14/2023 SURGEON: Yg Uribe MD INDICATIONS: Colon cancer screening and prior history of colon polyps. PREOPERATIVE DIAGNOSIS: POSTOPERATIVE DIAGNOSIS: PROCEDURE PERFORMED: Colonoscopy to the terminal ileum with biopsy. ESTIMATED BLOOD LOSS: COMPLICATIONS: ANESTHESIA: Monitored anesthesia care. ASSISTANTS: SPECIMENS: DESCRIPTION OF PROCEDURE: A history and physical was performed. The risks and benefits of the procedure were explained to the patient and informed consent was obtained. The patient was placed in the left lateral decubitus position. A digital rectal exam was performed and was found to be normal. The Olympus pediatric video colonoscope was introduced into the rectum and advanced to the cecum. The cecum was identified by transillumination, palpation, and identification of ileocecal valve examination was performed. The scope was removed. She tolerated the procedure well and was returned to the recovery area in stable condition. FINDINGS: The terminal ileum was examined and appeared normal. The visualized colonic mucosa was normal. The quality of the prep was good. In the cecum was a less than 5 mm sessile polyp. This was removed with a biopsy forceps. No other polyps were identified. Retroflexed examination showed some moderate-sized internal hemorrhoids. IMPRESSION: Colon polyp. RECOMMENDATION: Follow up the biopsy results. MD JAVAD Tanner/MIKEL / [id number]
== END 2023-06-14 10:00 | disposition home or self-care (01) ==
PROVIDERS: PCP Internal Medicine; Visit Provider Internal Medicine Gastroenterology
PROC: 0DJD8ZZ Inspection of Lower Intestinal Tract, Via Natural or Artificial Opening Endoscopic (ICD-10-PCS; CPT 45378; principal; 2023-06-14 08:20)
DX: Z12.11 Encounter for screening for malignant neoplasm of colon (principal); Z86.010 Personal history of colon polyps; D12.0 Benign neoplasm of cecum; K64.8 Other hemorrhoids; K58.0 Irritable bowel syndrome with diarrhea; K21.9 Gastro-esophageal reflux disease without esophagitis; E78.00 Pure hypercholesterolemia, unspecified; M79.7 Fibromyalgia; J45.20 Mild intermittent asthma, uncomplicated; Z79.1 Long term (current) use of non-steroidal anti-inflammatories (NSAID); Z79.51 Long term (current) use of inhaled steroids; Z79.899 Other long term (current) drug therapy; Z88.5 Allergy status to narcotic agent; Z88.8 Allergy status to other drugs, medicaments and biological substances; Z98.890 Other specified postprocedural states
CPT/HCPCS: 45380; 88305; J2704

== ENCOUNTER 2023-08-02 06:07 | Outpatient (REF) | payer MEDICARE, MEDICAID, SELFPAY ==
[2023-08-02 10:38] LABS: MANUAL DIFF FLAG NO
[2023-08-02 10:44] LABS: Hematocrit 42.8 % (37.0-47.0); Hemoglobin 13.9 g/dl (12.0-16.0)
[2023-08-02 10:50] LABS: Basophils Absolute Auto 0.1 X10*3/uL (0.0-0.2); Basophils Percent Auto 1.1 % (0-2); Eosinophils Absolute Auto 0.2 X10*3/uL (0.0-0.4); Eosinophils Percent Auto 2.2 % (0-4); Hematocrit 42.2 % (37.0-47.0); Imm Gran Abs Auto 0.04 X10*3/uL (0.00-0.03); Imm Gran Pct Auto 0.6 % (0.0-0.4); Lymphocytes Absolute Auto 2.4 X10*3/uL (1.2-4.9); Lymphocytes Percent Auto 34.5 % (20-40); Mean Corpuscular HGB Conc 33.2 g/dl (31.0-35.0); Mean Corpuscular Hemoglobin 29.1 pg (27.0-33.0); Mean Corpuscular Volume 87.7 fL (80.0-98.0); Mean Platelet Volume 11.2 fL (9.4-12.3); Monocytes Absolute Auto 0.6 X10*3/uL (0.1-1.2); Monocytes Percent Auto 9.2 % (2-11); Neutrophils Absolute Auto 3.7 x10*3/uL (2.0-8.3); Neutrophils Percent Auto 52.4 % (45-73); Platelet Count 209 X10*3/uL (160-400); Red Blood Count 4.81 X10*6/uL (4.20-5.50); Red Cell Distribution Width 13.9 % (11.0-16.0)
[2023-08-02 11:23] LABS: Alanine Aminotransferase 25 U/L (0-31); Alkaline Phosphatase 110 U/L (39-117); Aspartate Amino Transferase 23 U/L (5-31)
[2023-08-02 11:39] LABS: Cortisol Random 13.5 ug/dL
[2023-08-02 11:46] LABS: Erythrocyte Sedimentation Rate 7 MM/HR (0-20)
[2023-08-02 11:47] LABS: Vitamin D 25-OH Total 70.6 ng/mL (>30)
[2023-08-02 11:56] LABS: Anion Gap 12 (12-20)
[2023-08-02 12:01] LABS: Alanine Aminotransferase 25 U/L (0-31); Aspartate Amino Transferase 24 U/L (5-31); Blood Urea Nitrogen 12 mg/dL (9-16); Calcium 9.8 mg/dL (8.4-10.2); Carbon Dioxide 26 mmol/L (22-29); Chloride 107 mmol/L (96-108); Cholesterol 209 mg/dL (<200); Estimated Glomerular Filt Rate > 60; Glucose Fasting 134 mg/dL (60-99); HDL Cholesterol 44 mg/dL (>40); LDL Cholesterol Calculated 121 mg/dL (<100); Potassium 3.8 mmol/L (3.3-5.1); Sodium 141 mmol/L (135-145); Triglycerides 222 mg/dL (<150)
[2023-08-05 09:38] LABS: Calcium, Ionized 5.4 mg/dL (4.7-5.5)
== END 2023-08-02 06:08 | disposition home or self-care (01) ==
LOC: HO.HMGCLDS 06:07
PROVIDERS: PCP Internal Medicine; Referring Provider Internal Medicine Hematology & Oncology; Visit Provider Internal Medicine
DX: R73.01 Impaired fasting glucose (principal); J45.20 Mild intermittent asthma, uncomplicated; E78.2 Mixed hyperlipidemia; L65.9 Nonscarring hair loss, unspecified; R53.83 Other fatigue; Z78.0 Asymptomatic menopausal state; Z85.3 Personal history of malignant neoplasm of breast; Z87.39 Personal history of other diseases of the musculoskeletal system and connective tissue
CPT/HCPCS: 36415; 80048; 80061; 82306; 82330; 82533; 84075; 84443; 84450; 84460; 85014; 85018; 85025; 85652

== ENCOUNTER 2023-08-06 08:44 | Outpatient (AMB) | payer MEDICARE, MEDICAID, SELFPAY ==
[2023-08-06 09:21] VITALS: BP 132/72; PULSE 88; O2SAT 92; BMI 28.0
--- NOTE | 2023-08-06 09:21 | MHC.PC.OV ---
Vital Signs 08/06/23 09:21 Height 5 ft 5 in Weight 168 lb BMI 28.0 BP 132/72 Blood Pressure Location Rt brachial Position Sitting Pulse 88 Pulse Source Pulse Oximeter Pulse Oximetry (%) 92 Oxygen Delivery Method Room Air Intake Visit Reasons: Annual PE Intake Note: Pt is here today for her PE: Last bone density scan 04/02/23, colonoscopy 06/14/23 Allergies morphine Allergy (Severe, Verified 08/06/23 10:03) Anxiety diphenhydramine [From BENADRYL] Adverse Reaction (Intermediate, Verified 08/06/23 10:03) ANXIETY, AGITATION hydromorphone [HYDROMORPHONE] Adverse Reaction (Intermediate, Verified 08/06/23 10:03) SHAKING,CONFUSION,AGITATION, hyperacitivity codeine [Codeine] Adverse Reaction (Mild, Verified 08/06/23 10:03) AGITATION prochlorperazine [From Compazine] Adverse Reaction (Mild, Verified 08/06/23 10:03) AGITATION, hyperactivity flu vaccine Adverse Reaction (Intermediate, Uncoded 08/06/23 10:03) severe flu like symptoms Medication List - Last Reconciled 08/06/23 by Brittany Rodgers MD albuterol sulfate 90 mcg/actuation 2 inhalations inhalation Q4-6H PRN alendronate 70 mg PO QWEEK calcium-vitamin D3-vitamin K 500-100-40 mg-unit-mcg 1 tab PO DAILY diazepam 5 mg PO BID PRN dicyclomine 20 mg PO QID ergocalciferol (vitamin D2) 400 units PO DAILY esomeprazole magnesium (Nexium) 40 mg PO DAILY finasteride 2.5 mg PO DAILY fluocinolone-hydroq.-tretinoin 0.01-4-0.05 % (Tri-Nyla) 1 appl topical BEDTIME fluticasone propionate 50 mcg/actuation (Allergy Relief (fluticasone)) 1 spray intranasal DAILY [grab handles As directed] ibuprofen 800 mg PO DAILY PRN lacosamide (Vimpat) 150 mg PO DAILY meclizine 12.5 mg PO TID metronidazole 0.75% 1 appl topical BID montelukast 10 mg PO DAILY nebulizers As directed omega 3-ran-gya-fish oil 1,000 mg (120 mg-180 mg) (Fish Oil) 1 cap PO DAILY peg [id number] 1-0.2-0.2 % (Artificial Tears ([id number])) 1 drp ophthalmic (eye) DAILY pravastatin 20 mg (1/2 x 40 mg) PO BEDTIME Wixela Inhub 500-50 mcg/dose (fluticasone propion-salmeterol) 1 inh inhalation Q12H NS Tobacco use date assessed: 08/06/23 Fall risk assessment: 2 + Falls in past year Last assessed Fall Risk: 08/06/23 Dental Screening Dental Screen Date: 02/06/23 Did you have a dental visit in the last 12 months?: Yes Did you have a dental problem in the last 6 months where you did not have access to dental care?: No Was dental information given to patient?: Patient has dentist HPI Annual PE HPI Details 68-year-old lady with history of hyperlipidemia, mild intermittent asthma, and prediabetes, here today for a physical exam. She has been compliant with her diet, but unable to exercise due to joint pains. Currently seen by Dr. Beard her neurologist to gives her Botox injection treatments for her migraine headache. She is up-to-date with her bone density scan, done March 2023 with normal bone density results in lumbar spine and hips. Recently had her screening colonoscopy done by Dr. Uribe with removal of a tubular adenoma, repeat colonoscopy scheduled again for 2028. She has had COVID vaccines in the past but did not want to get the booster, up-to-date with her Prevnar 20, shingles vaccine and Tdap. Does not get flu vaccines Latest fasting labs showed elevated LDL cholesterol and fasting blood sugar at 130 4 mg/dL, with hemoglobin A1c drawn today at 6.5%. [facility] Medical History (Updated 08/06/23 @ 10:40 by Brittany Rodgers MD) Type 2 diabetes mellitus without complication, without long-term current use of insulin Peripheral venous insufficiency Seasonal allergies Urinary incontinence Fibromyalgia affecting multiple sites History of osteopenia Hx of breast cancer Glaucoma Mild intermittent asthma Migraine Generalized anxiety disorder Irritable bowel syndrome with diarrhea History of breast cancer GERD with esophagitis Osteoarthritis Mixed dyslipidemia Renal cyst Surgical History H/O vascular surgery Hx of right knee surgery Hx of sinus surgery H/O colonoscopy History of esophagogastroduodenoscopy (EGD) History of lumpectomy of right breast History of partial mastectomy of left breast History of right cataract surgery H/O bilateral oophorectomy S/P right knee arthroscopy History of foot surgery Family History Father Essential hypertension Diabetes mellitus Dyslipidemia CVA (cerebral vascular accident) Mental health disorder Mother Diabetes mellitus Dyslipidemia Essential hypertension Brother Diabetes mellitus Dyslipidemia Essential hypertension Maternal Aunt Ovarian cancer Paternal Aunt Mental health disorder Social History Housing: Apartment Alcohol intake: never Patient Tobacco Use Status: Never used Tobacco e-Cigarette/Vaping Use: Never Used Current occupational status: unemployed Cognitive needs: No Hearing needs: No Vision needs: No Questionnaire PHQ-9 Over the last 2 weeks, how often have you been bothered by any of the following problems? 1. Little interest or pleasure in doing things: several days 2. Feeling down, depressed, or hopeless: not at all 3. Trouble falling or staying asleep, or sleeping too much: nearly every day 4. Feeling tired or having little energy: nearly every day 5. Poor appetite or overeating: several days 6. Feeling bad about yourself - or that you are a failure or have let yourself or your family down: several days 7. Trouble concentrating on things, such as reading the newspaper or watching television: several days 8. Moving or speaking so slowly that other people could have noticed. Or the opposite - being so fidgety or restless that you have been moving around a lot more than usual: several days 9. Thoughts that you would be better off or of hurting yourself in some way: not at all Total score: 11 Depression Screening Interpretation: Positive (Has fibromyalgia, currently being prescribed diazepam by Dr. Sweeney, her pain management doctor, does not want to start any other medications at present time for depression, sees a therapist) Depression Screening Follow-up: Existing condition, In treatment and Community Mental Health Worker F/U Depression Screening Done: Yes 19210 - PHQ-9 Billing: Yes Source: Developed by Drs. Willam Goodman, Vic Zamora and colleagues, with an educational willis from [employer]. Thrive Questionnaire Date Thrive assessed: 08/08/22 I am a: Patient What is your living situation today?: I have a steady place to live Within the past 12 months, did the food you bought not last and you didn't have the money to get more?: Sometimes True Within the past 12 months, did you worry whether your food would run out before you got money to buy more?: Sometimes True Do you have trouble paying for medicines?: Yes Do you have trouble getting transportation to medical appointments?: No Do you have trouble paying your heating and electricity bill?: Yes Do you have trouble taking care of your child, family member or friend?: Yes Do you have trouble with day-to-day activities such as bathing, preparing meals, shopping, managing finances, etc.?: Yes Are you currently unemployed and looking for a job?: Yes Are you interested in more education?: No THRIVE Score: 3 AUDIT C Alcohol Use Questionnaire (AUDIT-C) 1. How often do you have a drink containing alcohol?: Never Total Score: 0 INGRID-7 AMB Questionnaire INGRID-7 Date INGRID - 7 assessed: 08/06/23 Feeling nervous, anxious, or on edge: 1 = Several days Not being able to stop or control worryin = Several days Worrying too much about different things: 1 = Several days Trouble relaxin = Several days Being so restless that it is hard to sit still: 0 = Not at all Becoming easily annoyed or irritable: 0 = Not at all Feeling afraid as if something awful might happen: 1 = Several days Total INGRID-7 score (0-4 normal; 5-9 mild; 10-14 moderate; 15-21 severe): 5 Source: Developed by Drs. Willam Goodman, Vic Zamora and colleagues, with an educational willis from [employer]. INGRID-7 Assessment Billing INGRID-7 Assessment Tool: INGRID-7 Assessment 31983 Review of Systems Const Reports no additional complaints and Reports fatigue Eyes Reports no additional complaints ENT Denies dizziness, Denies nasal congestion and Denies post nasal drip Card Denies chest pain, Denies rapid heart rate, Denies lightheadedness and Denies dyspnea Resp Denies cough, Denies dyspnea and Denies wheezing GI Denies abdominal pain, Denies melena, Reports bloating, Denies hematochezia, Denies heartburn and Reports diarrhea (Recurrent) Reports no additional complaints Musc Denies abnormal gait and Reports stiffness Skin/Breast Denies breast swelling, Denies breast pain, Denies breast mass and Denies rash Neuro Denies abnormal gait, Denies dizziness and Denies focal weakness Psych Reports no additional complaints Endo Reports fatigue, Denies polyphagia, Denies polydipsia and Denies polyuria Juan R/Lymph Reports no additional complaints Aller/Immun Denies wheezing Physical exam (Primary Care) Vital Signs: Last Vital Signs Pulse 88 08/06/23 09:21 BP 132/72 08/06/23 09:21 Pulse Ox 92 08/06/23 09:21 Oxygen Delivery Method Room Air 08/06/23 09:21 BMI result Body Mass Index 28.0 Tobacco/Smoking Status: Tobacco use Status Tobacco use date assessed 08/06/23 08/06/23 09:25 Patient Tobacco Use Status Never used Tobacco 08/06/23 09:25 e-Cigarette/Vaping Use Never Used 08/06/23 09:25 PHQ-9: PHQ-9 Score PHQ-9: Total score 11 08/07/23 00:34 Depression Screening Interpretation: Positive (Has fibromyalgia, currently being prescribed diazepam by Dr. Sweeney, her pain management doctor, does not want to start any other medications at present time for depression, sees a therapist) Depression Screening Follow-up: Existing condition, In treatment and Community Mental Health Worker F/U Thrive Assessment: Date of Thrive Assessment Date Thrive assessed 08/08/22 08/06/23 09:25 Advance Care Planning discussion: Completed/Scanned Date of discussion: 08/06/23 Who was present: patient Forms completed: Health Care Proxy Time spent: 16-45 minutes Actual minutes spent: 16 Const Other: Alert oriented x3, no acute distress HENMT Ears: external ears normal General nose exam: Normal external nose present Face and sinus: Yes face symmetric Mouth: Normal oral and palatal mucosa present, oropharynx normal and moist mucous membranes Eyes General: appearance normal, both eyes and all related structures Neck Neck: Yes full ROM and Yes supple Chest Other: Positive left breast reconstruction status post mastectomy Chest palpation & inspection: normal inspection of the chest Breast/axilla palpation: normal palpation of the breasts (right) Resp Auscultation: clear to auscultation bilaterally Cardio Other: S1-S2 present regular rate and rhythm GI Palpation (GI): Soft to palpation, nontender, no guarding and no masses General: Yes no CVA tenderness Back/Spine/Pelvis Back: no CVA tenderness Skin General skin exam: no rashes or lesions noted Neuro General: gait normal, Normal light touch and pain sensation, no focal motor deficits, CN's II-XI intact bilaterally and normal sensation to monofilament Extrem General: Yes full ROM, Yes no joint enlargement, Yes no pedal edema and Yes normal gait Psych Appearance: grossly normal and well kempt Mental Status: mental status grossly normal Speech and movement: Normal speech and movement present Affect: normal affect Attitude: cooperative Thought process: Normal thought process present Results AMB Hemoglobin A1c AMB Hemoglobin A1c 6.5 % Last Edit by Lisa Fitzgerald CMA on 08/06/23 10:37 Results Reviewed Results Reviewed: Laboratory Last Values Hgb A1c (Clinic) 6.5 % (4.0-6.0) H 08/06/23 10:36 Name: Teri Alexander Age/Sex: 68/F : 1955 Unit#: [id number] Attend Dr: Brittany Rodgers MD Re08/02/23 Status: DEP REF Location: [facility] Disch: SPEC : [id number] PORFIRIO: 08/02/23 STATUS: COMP REQ : [id number] RECD: 08/02/[address]: Dipak Sweeney MD COMP: 08/02/23 ENTERED: 08/02/[address]: Brittany Rodgers MD ORDERED: CBC Auto Diff Test Result Flag Reference WBC 7.0 4.8-10.8 X10*3/uL RBC 4.81 4.20-5.50 X10*6/uL HGB 14.0 12.0-16.0 g/dl HCT 42.2 37.0-47.0 % MCV 87.7 80.0-98.0 fL MCH 29.1 27.0-33.0 pg MCHC 33.2 31.0-35.0 g/dl RDW 13.9 11.0-16.0 % PLT 209 160-400 X10*3/uL MPV 11.2 9.4-12.3 fL Neut Pct Auto 52.4 45-73 % ImGran Pct Auto 0.6 H 0.0-0.4 % Lymp Pct Auto 34.5 20-40 % Grainger Pct Auto 9.2 2-11 % Eos Pct Auto 2.2 0-4 % Baso Pct Auto 1.1 0-2 % NRBC Pct Auto 0.0 0.0-0.2 /100WBC ANC Neut Abs # 3.7 2.0-8.3 x10*3/uL ImGran Abs Auto 0.04 H 0.00-0.03 X10*3/uL Lymph Abs Auto 2.4 1.2-4.9 X10*3/uL Grainger Abs Auto 0.6 0.1-1.2 X10*3/uL Eos Abs Auto 0.2 0.0-0.4 X10*3/uL Baso Abs Auto 0.1 0.0-0.2 X10*3/uL NRBC Abs Auto 0.000 0.0-0.012 X10*3/uL NTERED: 08/02/23-[address]: ORDERED: Met Prof Fast, AST, ALT, Lipid Panel, Vitamin D 25-OH Test Result Flag Reference Sodium 141 135-145 mmol/L Potassium 3.8 3.3-5.1 mmol/L CL 107 96-108 mmol/L CO2 26 22-29 mmol/L Gap 12 12-20 BUN 12 9-16 mg/dL Creat 0.73 0.5-1.4 mg/dL EGFR > 60 NOTE: For -[place] individuals, multiply the result by 1.210. Chronic Kidney Disease: Estimated GFR < 60 mL/min/1.73m2 Severe Kidney Disease: Estimated GFR < 15 mL/min/1.73m2 FBS 134 H 60-99 mg/dL A fasting glucose of 126 mg/dl or greater on more than one occasion is considered diagnostic of diabetes. CA 9.8 8.4-10.2 mg/dL AST (GOT) 24 5-31 U/L ALT (GPT) 25 0-31 U/L Triglyceride 222 H <150 mg/dL Desirable Triglyceride: less than 150 mg/dL Borderline High Triglyceride 150-199 mg/dL High Triglyceride: 200-499 mg/dL Very High Triglyceride: greater than or equal to 5OO mg/dL Cholesterol 209 H <200 mg/dL Desirable Cholesterol: less than 200 mg/dL Borderline High Cholesterol: 200-239 mg/dL High Cholesterol: greater than 239 mg/dL LDL Calculated 121 H <100 mg/dL Desirable LDL: less than 100 mg/dL Near Optimal/Above Optimal LDL: 110-129 mg/dL Borderline High LDL: 130-159 mg/dL High LDL: 160-189 mg/dL Very High LDL: greater than or equal to 190 mg/dL HDL 44 >40 mg/dL Desirable HDL: greater than 40 mg/dL Note: This HDL assay may give artificially low results in patients with liver disease. Vit D 25-OH Tot 70.6 >30 ng/mL Health Based Reference Values* < 20 ng/mL Deficient 20-30 ng/mL Insufficient > 30 ng/mL Sufficient Assessment and Plan Assessment & Plan (1) Annual visit for general adult medical examination with abnormal findings: Code(s): Z00.01 - Encounter for general adult medical examination with abnormal findings Plan: Results of recent fasting labs reviewed with patient which showed elevated fasting glucose and LDL cholesterol. Reminded to get dental visit every 6 months and regular eye exams, to be done yearly due to recent diagnosis of diabetes mellitus. Take adequate calcium in diet and vitamin-D 3 at 2000 IU per cap once a day, in addition to weight-bearing exercises to help maintain good muscle tone and weight control. Instructed to do self-breast exam, and continued to get yearly mammogram. Up-to-date with her screening colonoscopy. Up-to-date with all her vaccines except for the flu shot which she could not tolerate due to its side effects. Up-to-date with her screening colonoscopy (2) Mixed dyslipidemia: Code(s): E78.2 - Mixed hyperlipidemia Plan: Fasting lipids showed higher LDL cholesterol as compared to last check. Reinforced importance of following a low-cholesterol diet, try to get some form of exercise on daily basis. Will repeat another fasting lipid panel in 3 months, and if LDL still elevated will start on a statin (3) Type 2 diabetes mellitus without complication, without long-term current use of insulin: Code(s): E11.9 - Type 2 diabetes mellitus without complications Plan: Newly diagnosed diabetes mellitus, hemoglobin A1c today is at 6.5%. Does not want to start medication at present time, wants to try controlling diabetes and cholesterol levels with diet and exercise. Will repeat another fasting lipid panel, hemoglobin A1c in 3 months. Referred to diabetic nurse for further guidance. (4) Hx of breast cancer: Comment: Code(s): Z85.3 - Personal history of malignant neoplasm of breast Plan: Followed by [facility], sees Thaddeus Narvaez NP (5) Migraine: Comment: History of Botox injection by Dr. Pack Code(s): G43.909 - Migraine, unspecified, not intractable, without status migrainosus Qualifiers: Migraine type: without aura Status migrainosus presence: without status migrainosus Intractability: not intractable Qualified Code(s): G43.009 - Migraine without aura, not intractable, without status migrainosus Plan: Followed by Dr. Beard, receives Botox injections, recently had it done with good results, controlling migraine headache (6) Generalized anxiety disorder: Code(s): F41.1 - Generalized anxiety disorder Plan: Currently prescribed diazepam by her neurologist, does not want to start any new medication at present time (7) Osteoarthritis: Code(s): M19.90 - Unspecified osteoarthritis, unspecified site Qualifiers: Osteoarthritis location: multiple joints Osteoarthritis type: primary Qualified Code(s): M89.49 - Other hypertrophic osteoarthropathy, multiple sites Plan: Currently followed by Dr. Sweeney at [facility] pain management (8) Mild intermittent asthma: Code(s): J45.20 - Mild intermittent asthma, uncomplicated Qualifiers: Asthma complication type: uncomplicated Qualified Code(s): J45.20 - Mild intermittent asthma, uncomplicated Plan: Controlled with Wixela, rarely needing to use her rescue inhaler (9) Glaucoma: Code(s): H40.9 - Unspecified glaucoma Plan: Followed by Ophthalmology Orders: Orders AMB Hemoglobin A1c 08/06/23 R73.01 - Impaired fasting glucose Hemoglobin A1c 10/26/23 E11.9 - Type 2 diabetes mellitus without complications, E78.2 - Mixed hyperlipidemia Alanine Aminotransferase 10/26/23 E11.9 - Type 2 diabetes mellitus without complications, E78.2 - Mixed hyperlipidemia Aspartate Amino Transferase 10/26/23 E11.9 - Type 2 diabetes mellitus without complications, E78.2 - Mixed hyperlipidemia Basic Metabolic Panel Fasting 10/26/23 E11.9 - Type 2 diabetes mellitus without complications, E78.2 - Mixed hyperlipidemia Lipid Panel 10/26/23 E11.9 - Type 2 diabetes mellitus without complications, E78.2 - Mixed hyperlipidemia Microalbumin, Random (w Creat) 10/26/23 E11.9 - Type 2 diabetes mellitus without complications, E78.2 - Mixed hyperlipidemia Coding Level of Care Code Est Pt Prev Care >65y(64574) Diagnoses Annual visit for general adult medical examination with abnormal findings Z00.01 Mixed dyslipidemia E78.2 Type 2 diabetes mellitus without complication, without long-term current use of insulin E11.9 Hx of breast cancer Z85.3 Migraine without aura and without status migrainosus, not intractable G43.009 Migraine type: without aura Status migrainosus presence: without status migrainosus Intractability: not intractable Generalized anxiety disorder F41.1 Primary osteoarthritis involving multiple joints M89.49 Osteoarthritis location: multiple joints Osteoarthritis type: primary Mild intermittent asthma without complication J45.20 Asthma complication type: uncomplicated Glaucoma H40.9 Additional Codes INGRID-7 Assessment Billing - INGRID-7 Assessment Tool: INGRID-7 Assessment [id number] ([id number]) Vital Signs *Quality* - Advance Care Planning discussion: Completed/Scanned ([id number]) Vital Signs *Quality* - Time spent: 16-45 minutes ([id number])
== END 2023-08-06 10:46 | disposition home or self-care (01) ==
PROVIDERS: PCP Internal Medicine; Visit Provider Internal Medicine
DX: Z00.00 Encounter for general adult medical examination without abnormal findings (principal); E78.2 Mixed hyperlipidemia; E11.9 Type 2 diabetes mellitus without complications; Z85.3 Personal history of malignant neoplasm of breast; G43.009 Migraine without aura, not intractable, without status migrainosus; F41.1 Generalized anxiety disorder; M89.49 Other hypertrophic osteoarthropathy, multiple sites; J45.20 Mild intermittent asthma, uncomplicated; H40.9 Unspecified glaucoma
CPT/HCPCS: 1123F; 83036; 99397; 99497

== ENCOUNTER 2023-10-29 06:04 | Outpatient (REF) | payer MEDICARE, MEDICAID, SELFPAY ==
[2023-10-29 10:30] LABS: Estimated Average Glucose 126 mg/dL; Hemoglobin A1C 152.1613 umol/L
[2023-10-29 10:58] LABS: Creatinine Urine 204.53 mg/dL; Microalbum/Creatinine Ratio Ur 11.7 ug/mg cr (<30)
[2023-10-29 11:06] LABS: Alanine Aminotransferase 20 U/L (0-31); Anion Gap 12 (12-20); Aspartate Amino Transferase 26 U/L (5-31); Blood Urea Nitrogen 13 mg/dL (9-16); Calcium 9.7 mg/dL (8.4-10.2); Carbon Dioxide 26 mmol/L (22-29); Chloride 108 mmol/L (96-108); Cholesterol 193 mg/dL (<200); Estimated Glomerular Filt Rate > 60; Glucose Fasting 115 mg/dL (60-99); HDL Cholesterol 40 mg/dL (>40); LDL Cholesterol Calculated 127 mg/dL (<100); Potassium 3.8 mmol/L (3.3-5.1); Sodium 142 mmol/L (135-145); Triglycerides 132 mg/dL (<150)
== END 2023-10-29 06:05 | disposition home or self-care (01) ==
LOC: HO.HMGCLDS 06:04
PROVIDERS: PCP Internal Medicine; Visit Provider Internal Medicine
DX: E11.9 Type 2 diabetes mellitus without complications (principal); E78.2 Mixed hyperlipidemia
CPT/HCPCS: 36415; 80048; 80061; 82043; 82570; 83036; 84450; 84460

== ENCOUNTER 2023-12-10 09:30 | Outpatient (REF) | payer MEDICARE, MEDICAID, SELFPAY ==
--- NOTE | ~2023-12-10 | US_ITS ---
EXAMINATION: US RETROPERITONEAL COMPLETE (RENAL) CLINICAL INFORMATION: Renal cyst. COMPARISON: Ultrasounds of 12/12/2022, 12/13/2021 and 10/03/2020. TECHNIQUE: Real-time imaging of the kidneys and bladder. Limited visualization due to bowel gas. FINDINGS: RIGHT KIDNEY: 11.7 x 5.0 x 6.2 cm (SAG x AP x TRV). No hydronephrosis. No renal calculi. Renal cortical thickness is normal. Limited visualization. 1.0 cm lower pole pole cyst with benign features. There is no indication for follow-up imaging. LEFT KIDNEY: 10.8 x 5.6 x 5.6 cm (SAG x AP x TRV). No hydronephrosis. No renal calculi. Renal cortical thickness is normal. Limited visualization. 2.1 x 2.0 x 2.0 cm complex cyst with fine septations upper pole left kidney, previously 2.6 x 1.9 x 2.0 cm on 12/12/2022. 8.2 x 4.0 x 8.1 cm complex cyst with septations lower pole left kidney, previously 9.0 x 5.6 x 3.6 cm on 12/12/2022 and 7.0 x 4.9 x 6.9 cm prior to that. US/US renal BI IMPRESSION: Left renal mildly complex cyst, largest 8.2 cm fluctuating in size over time as detailed above. Electronically signed by: Windy Sun MD 12/25/2023 05:18 AM EDT
== END 2023-12-10 09:31 | disposition home or self-care (01) ==
LOC: HO.HMGCX 09:30
PROVIDERS: PCP Internal Medicine; Referring Provider Internal Medicine Hematology & Oncology; Visit Provider Urology
DX: N28.1 Cyst of kidney, acquired (principal)
CPT/HCPCS: 76775

== ENCOUNTER 2023-12-25 08:44 | Outpatient (AMB) | payer MEDICARE, MEDICAID, SELFPAY ==
--- NOTE | 2023-12-25 09:28 | A.OFFVIS_ITS ---
Intake Visit Reasons: 1y/US(set) Intake Note: Patient is present for Follow Up Renal cyst and ultrasound results Imaging Completed: 11/25/23 Urology Med: ? tolterodine Antibiotic Allergy: None Blood Thinner: None Pharmacy: [facility] Supervisor Required: No Accompanied by: Self / Same As Patient Allergies morphine Allergy (Severe, Verified 12/25/23 20:28) Anxiety diphenhydramine [From BENADRYL] Adverse Reaction (Intermediate, Verified 12/25/23 20:28) ANXIETY, AGITATION hydromorphone [HYDROMORPHONE] Adverse Reaction (Intermediate, Verified 12/25/23 20:28) SHAKING,CONFUSION,AGITATION, hyperacitivity codeine [Codeine] Adverse Reaction (Mild, Verified 12/25/23 20:28) AGITATION prochlorperazine [From Compazine] Adverse Reaction (Mild, Verified 12/25/23 20:28) AGITATION, hyperactivity flu vaccine Adverse Reaction (Intermediate, Uncoded 12/25/23 20:28) severe flu like symptoms Medication List - Last Reconciled 12/25/23 by ALEKSANDRA Coffman- alendronate 70 mg PO QWEEK calcium-vitamin D3-vitamin K 500-100-40 mg-unit-mcg 1 tab PO DAILY diazepam 5 mg PO BID PRN dicyclomine 20 mg PO QID ergocalciferol (vitamin D2) 400 units PO DAILY esomeprazole magnesium (Nexium) 40 mg PO DAILY finasteride 2.5 mg PO DAILY fluocinolone-hydroq.-tretinoin 0.01-4-0.05 % (Tri-Nyla) 1 appl topical BEDTIME fluticasone propionate 50 mcg/actuation (Allergy Relief (fluticasone)) 1 spray intranasal DAILY [grab handles As directed] ibuprofen 800 mg PO DAILY PRN lacosamide (Vimpat) 150 mg PO DAILY meclizine 12.5 mg PO BID PRN metronidazole 0.75% 1 appl topical BID montelukast 10 mg PO DAILY nebulizers As directed omega 9-vwa-vdr-fish oil 1,000 mg (120 mg-180 mg) (Fish Oil) 1 cap PO DAILY peg 363-slfnplgxqmkv-fowxqurt 1-0.2-0.2 % (Artificial Tears ([id number]-dflchrwa)) 1 drp ophthalmic (eye) DAILY pravastatin 20 mg (1/2 x 40 mg) PO BEDTIME tolterodine ER mg PO Ventolin HFA 90 mcg/actuation (albuterol sulfate) 2 puffs PO Q6H PRN NS Wixela Inhub 500-50 mcg/dose (fluticasone propion-salmeterol) 1 inh inhalation Q12H NS HPI Comments Details: Teri is a 68-year-old female patient of Dr. Rodgers. She has medical history of osteopenia, type 2 diabetes, peripheral venous insufficiency, seasonal allergies, fibromyalgia, history of breast cancer, intermittent asthma, migraines, anxiety, irritable bowel syndrome, GERD, osteoarthritis, mixed lipidemia, and renal cysts. She presents to the office today for follow-up of her complex renal cysts. Recent renal imaging results reviewed with the patient today. Right kidney with no hydronephrosis or renal calculi. 1.0 cm lower pole cyst with benign features that requires no follow-up imaging per radiology report. Left kidney with no hydronephrosis or renal calculi. 2.1 x 2.0 x 2.0 cm complex cyst with fine septations upper pole left kidney, previously 2.6 x 1.9 x 2.0 cm on 12/12/2022. 8.2 x 4.0 x 8.1 cm complex cyst with septations lower pole left kidney, previously 9.0 x 5.6 x 3.6 cm on 12/12/2022 and 7.0 x 4.9 x 6.9 cm prior to that. She discusses at length her ongoing issues with her ri ght knee, alopecia, and migraines. She reports be happy with current voiding parameters on tolterodine. She discusses feeling this has been helpful in decreasing episodes of nocturia. She currently denies any bothersome urinary issues or concerns. In office urinalysis results reviewed with the patient today. She otherwise offers no other issues or concerns at this time. Complex renal cyst Stable on imaging Imaging - 10/10 renal ultrasound left multiple renal cysts up to 6 cm - 12/12 renal ultrasound multiple left renal cysts up to 8 cm PFSH Medical History History of osteopenia Type 2 diabetes mellitus without complication, without long-term current use of insulin Peripheral venous insufficiency Seasonal allergies Urinary incontinence Fibromyalgia affecting multiple sites Hx of breast cancer Glaucoma Mild intermittent asthma Migraine Generalized anxiety disorder Irritable bowel syndrome with diarrhea History of breast cancer GERD with esophagitis Osteoarthritis Mixed dyslipidemia Renal cyst Surgical History H/O vascular surgery Hx of right knee surgery Hx of sinus surgery H/O colonoscopy History of esophagogastroduodenoscopy (EGD) History of lumpectomy of right breast History of partial mastectomy of left breast History of right cataract surgery H/O bilateral oophorectomy S/P right knee arthroscopy History of foot surgery Family History Father Essential hypertension Diabetes mellitus Dyslipidemia CVA (cerebral vascular accident) Mental health disorder Mother Diabetes mellitus Dyslipidemia Essential hypertension Brother Diabetes mellitus Dyslipidemia Essential hypertension Maternal Aunt Ovarian cancer Paternal Aunt Mental health disorder Social History Housing: Apartment Alcohol intake: never Patient Tobacco Use Status: Never used Tobacco e-Cigarette/Vaping Use: Never Used Current occupational status: unemployed Cognitive needs: No Hearing needs: No Vision needs: No Review of Systems Const Reports as per HPI Eyes Reports no additional complaints ENT Reports no additional complaints Card Reports as per HPI Resp Reports as per HPI GI Reports as per HPI Reports as per HPI Musc Reports as per HPI Neuro Reports as per HPI Psych Reports as per HPI Endo Reports as per HPI Physical Exam Const General: cooperative, comfortable, no acute distress, well developed, alert and awake Orientation/consciousness: patient oriented x3 Limitations: no limitations HEENT Head: Yes normal to inspection, Yes normocephalic and Yes atraumatic Ears: hearing grossly normal bilaterally Eyes General: appearance normal, both eyes and all related structures Neck Neck: Yes normal visual inspection and Yes trachea midline Chest Chest palpation & inspection: normal inspection of the chest Resp Effort & Inspection: normal respiratory effort and able to speak in complete sentences Cardio Rate: regular rate GI Inspection: Yes normal to inspection General: Yes no CVA tenderness Back/Spine/Pelvis Back: no CVA tenderness Skin General skin exam: no rashes or lesions noted Neuro General: patient oriented x3 Extrem General: Yes normal to inspection Psych Appearance: grossly normal and well kempt Mental Status: mental status grossly normal Speech and movement: Normal speech and movement present and Clear speech present Affect: normal affect Attitude: cooperative Thought process: Normal thought process present Thought content: Normal thought content present Insight: Fair insight present (Psych) Judgement: Fair judgement present (Psych) Results AMB Urinalysis, Automated UA Leukoctes 0 Juan Alberto/uL Last Edit by Cristy Mayorga on 12/25/23 09:48 UA Nitrite Negative Last Edit by Cristy Mayorga on 12/25/23 09:48 UA Urobilinogen 0.2 mg/dL Last Edit by Cristy Mayorga on 12/25/23 09:48 UA Protein 15 mg/dL Last Edit by Cristy Mayorga on 12/25/23 09:48 UA pH 5.5 Last Edit by Cristy Mayorga on 12/25/23 09:48 UA Blood 0 Andrzej/uL Last Edit by Cristy Mayorga on 12/25/23 09:48 UA Specific [place] 1.030 Last Edit by Cristy Mayorga on 12/25/23 09:48 UA Ketone Negative Last Edit by Cristy Mayorga on 12/25/23 09:48 UA Bilirubin 0 mg/dL Last Edit by Cristy Mayorga on 12/25/23 09:48 UA Glucose 0 mg/dL Last Edit by Cristy Myaorga on 12/25/23 09:48 Results Reviewed Results Reviewed: Laboratory Last Values Urine pH (Auto) 5.5 12/25/23 09:47 Specific [place] (Auto) 1.030 12/25/23 09:47 Urine Protein (Auto) 15 mg/dL 12/25/23 09:47 Glucose (UA)(Auto) 0 mg/dL 12/25/23 09:47 Urine Ketones (Auto) Negative 12/25/23 09:47 Urine Blood (Auto) 0 Andrzej/uL 12/25/23 09:47 Urine Nitrite (Auto) Negative 12/25/23 09:47 Urine Bilirubin (Auto) 0 mg/dL 12/25/23 09:47 Urine Urobilinogen (Auto) 0.2 mg/dL 12/25/23 09:47 Leukocyte Esterase (Auto) 0 Juan Alberto/uL 12/25/23 09:47 Date of Service: 12/10/23 EXAMINATION: US RETROPERITONEAL COMPLETE (RENAL) FINDINGS: RIGHT KIDNEY: 11.7 x 5.0 x 6.2 cm (SAG x AP x TRV). No hydronephrosis. No renal calculi. Renal cortical thickness is normal. Limited visualization. 1.0 cm lower pole pole cyst with benign features. There is no indication for follow-up imaging. LEFT KIDNEY: 10.8 x 5.6 x 5.6 cm (SAG x AP x TRV). No hydronephrosis. No renal calculi. Renal cortical thickness is normal. Limited visualization. 2.1 x 2.0 x 2.0 cm complex cyst with fine septations upper pole left kidney, previously 2.6 x 1.9 x 2.0 cm on 12/12/2022. 8.2 x 4.0 x 8.1 cm complex cyst with septations lower pole left kidney, previously 9.0 x 5.6 x 3.6 cm on 12/12/2022 and 7.0 x 4.9 x 6.9 cm prior to that. IMPRESSION: Left renal mildly complex cyst, largest 8.2 cm fluctuating in size over time as detailed above. Assessment & Plan Assessment & Plan (1) Renal cyst: Code(s): N28.1 - Cyst of kidney, acquired Category: Medical (2) Urge incontinence: Code(s): N39.41 - Urge incontinence Category: Medical (3) Nocturia: Code(s): R35.1 - Nocturia Category: Medical Plan In office urinalysis results reviewed with the patient today; as noted above. Recent renal imaging results reviewed with the patient today; as noted above. Discussed fluctuation in size of renal cyst. Patient currently denies any bothersome urinary issues or concerns. She reports be happy with current voiding parameters on tolterodine; will continue. Will continue with surveillance monitoring as discussed. Will obtain MRI renal mass protocol in 1 year. Follow-up in 1 year with imaging to be completed prior; or sooner with any issues, concerns, and or questions. Orders: Orders AMB Urinalysis Automated Today Z13.9 - Encounter for screening, unspecified MR kidney wo/w con 1 Year N28.89 - Other specified disorders of kidney and ureter Patient Instructions: The patient had an opportunity to ask questions regarding the treatment plan. All questions were answered. Physical exam, labs, and imaging were discussed and reviewed in detail. As well as risks, benefits, and discussion of treatment choices. No major barriers to understanding were identified. The patient expressed understanding and agreement with the above treatment plan. The patient was made aware they should contact our office by phone for worsening of their current condition, the appearance of new symptoms, or with any questions or concerns. Compliance is encouraged with any medications and follow up testing that is ordered. It is a privilege to be allowed the opportunity to participate in? your urological care.? Again, if you have any questions or concerns If you have any questions or concerns please do not hesitate to contact me. The office is [phone]. This note is constructed using voice recognition software. While every effort has been made to ensure accuracy artists' booking representative errors may have been included. Yours sincerely, ELSIE Coffman Coding Level of Care Code Est Pt Level 3 (59153) Complex EM visit Add On G2211 Diagnoses Renal cyst N28.1 Urge incontinence N39.41 Nocturia R35.1
== END 2023-12-25 10:01 | disposition home or self-care (01) ==
PROVIDERS: PCP Internal Medicine; Visit Provider Nurse Practitioner Family
DX: N28.1 Cyst of kidney, acquired (principal); N39.41 Urge incontinence; R35.1 Nocturia; Z13.9 Encounter for screening, unspecified
CPT/HCPCS: 99213; G2211

== ENCOUNTER → 2023-12-25 08:44 | Outpatient (BNVA) | payer MEDICARE, MEDICAID, SELFPAY | PROVIDERS: PCP Internal Medicine; Visit Provider Nurse Practitioner Family | DX: N39.41 Urge incontinence (principal); N28.1 Cyst of kidney, acquired; R35.1 Nocturia | CPT/HCPCS: 81003; 99212 ==

== ENCOUNTER 2024-02-10 06:01 | Outpatient (REF) | payer MEDICARE, MEDICAID, SELFPAY ==
[2024-02-10 10:45] LABS: Estimated Average Glucose 123 mg/dL; Hemoglobin A1C 140.2882 umol/L; Hemoglobin A1c % 5.9 % (<6.0); Total Hemoglobin (HGBA1C) 3382.5932 umol/L
[2024-02-10 11:34] LABS: Alanine Aminotransferase 26 U/L (0-31); Aspartate Amino Transferase 34 U/L (5-31); Cholesterol 188 mg/dL (<200); HDL Cholesterol 46 mg/dL (>40); LDL Cholesterol Calculated 110 mg/dL (<100); Triglycerides 161 mg/dL (<150)
== END 2024-02-10 06:02 | disposition home or self-care (01) ==
LOC: HO.HMGCLDS 06:01
PROVIDERS: PCP Internal Medicine; Visit Provider Internal Medicine
DX: M54.31 Sciatica, right side (principal); E11.9 Type 2 diabetes mellitus without complications; E78.2 Mixed hyperlipidemia; Z78.0 Asymptomatic menopausal state; Z87.39 Personal history of other diseases of the musculoskeletal system and connective tissue; Z51.81 Encounter for therapeutic drug level monitoring; Z79.83 Long term (current) use of bisphosphonates
CPT/HCPCS: 36415; 80061; 82306; 83036; 84450; 84460; 99212

== ENCOUNTER 2024-02-10 08:39 | Outpatient (AMB) | payer MEDICARE, MEDICAID, SELFPAY ==
--- NOTE | 2024-02-10 08:42 | AM.OFFWIN_ITS ---
Intake Vital Signs 02/10/24 08:43 Height 5 ft 5 in Weight 158 lb BMI 26.3 BP 122/70 Blood Pressure Location Rt brachial Position Sitting Pulse 74 Pulse Source Pulse Oximeter Pulse Oximetry (%) 98 Oxygen Delivery Method Room Air Intake Visit Reasons: EP-lower Back pain Intake Note: Patient here for lower back pain that has been present for about 3 weeks, she states no known injuries. Patient Tobacco Use Status: Never used Tobacco Allergies morphine Allergy (Severe, Verified 02/10/24 08:45) Anxiety diphenhydramine [From BENADRYL] Adverse Reaction (Intermediate, Verified 02/10/24 08:45) ANXIETY, AGITATION hydromorphone [HYDROMORPHONE] Adverse Reaction (Intermediate, Verified 02/10/24 08:45) SHAKING,CONFUSION,AGITATION, hyperacitivity codeine [Codeine] Adverse Reaction (Mild, Verified 02/10/24 08:45) AGITATION prochlorperazine [From Compazine] Adverse Reaction (Mild, Verified 02/10/24 08:45) AGITATION, hyperactivity flu vaccine Adverse Reaction (Intermediate, Uncoded 02/10/24 08:45) severe flu like symptoms Do you need a note to return to daycare/school/sports/work: No HPI EP-lower Back pain HPI Details This note is constructed using voice recognition software. While every effort has been made to ensure accuracy, campaign marketing specialist errors may have been included. The patient is a 68 year old female who presents to the clinic today with low back pain with radiation down her right leg for the past 3 weeks. She reports that she follows a chiropractor, and that seems to not have helped her pain. The pain is in the lumbar region, primarily to the right side, sharp in nature, with some sensation traveling up the back. She denies numbness and tingling, loss of control of bladder or bowel, any new injuries. She has been taking NSAIDs with some relief, ice also helps. Heat seems to make it worse. [facility] Medical History History of osteopenia Type 2 diabetes mellitus without complication, without long-term current use of insulin Peripheral venous insufficiency Seasonal allergies Urinary incontinence Fibromyalgia affecting multiple sites Hx of breast cancer Glaucoma Mild intermittent asthma Migraine Generalized anxiety disorder Irritable bowel syndrome with diarrhea History of breast cancer GERD with esophagitis Osteoarthritis Mixed dyslipidemia Renal cyst Surgical History H/O vascular surgery Hx of right knee surgery Hx of sinus surgery H/O colonoscopy History of esophagogastroduodenoscopy (EGD) History of lumpectomy of right breast History of partial mastectomy of left breast History of right cataract surgery H/O bilateral oophorectomy S/P right knee arthroscopy History of foot surgery Family History Father Essential hypertension Diabetes mellitus Dyslipidemia CVA (cerebral vascular accident) Mental health disorder Mother Diabetes mellitus Dyslipidemia Essential hypertension Brother Diabetes mellitus Dyslipidemia Essential hypertension Maternal Aunt Ovarian cancer Paternal Aunt Mental health disorder Social History Housing: Apartment Alcohol intake: never Patient Tobacco Use Status: Never used Tobacco e-Cigarette/Vaping Use: Never Used Current occupational status: unemployed Cognitive needs: No Hearing needs: No Vision needs: No Review of Systems Const All systems reviewed & are unremarkable except as noted in HPI and below Physical Exam Vital Signs: Last Vital Signs Pulse 74 02/10/24 08:43 BP 122/70 02/10/24 08:43 Pulse Ox 98 02/10/24 08:43 Oxygen Delivery Method Room Air 02/10/24 08:43 BMI result Body Mass Index 26.3 Const General: cooperative, healthy appearing, comfortable, no acute distress and alert Orientation/consciousness: patient oriented x3 Limitations: no limitations Resp Effort & Inspection: normal respiratory effort and able to speak in complete sentences Back/Spine/Pelvis Other: Paraspinal tenderness lumbar region, sciatic notch on right tenderness. Posit carlitos SLR right. Reduced lateral rotation and forward bend due to pain. Skin General skin exam: no rashes or lesions noted, elasticity normal and turgor normal Neuro General: patient oriented x3 Extrem General: Yes normal to inspection, Yes full ROM, Yes capillary refill normal and Yes normal exam except as noted Psych Appearance: grossly normal Mental Status: mental status grossly normal Speech and movement: Normal speech and movement present Affect: normal affect Assessment & Plan Assessment & Plan (1) Sciatica: Code(s): M54.30 - Sciatica, unspecified side Qualifiers: Laterality: right Qualified Code(s): M54.31 - Sciatica, right side Plan: Advised continuation of NSAIDs, heat/ice, gentle stretches, we will add muscle relaxer for symptomatic management. Keep follow up appointment scheduled with PCP next week. Plan See above for full details and plan. Medications: New cyclobenzaprine 5 mg PO Q8H PRN 10 tabs 0RF Muscle Spasm Coding Level of Care Code Est Pt Level 3 (85553) Diagnoses Sciatica of right side M54.31 Laterality: right
[2024-02-10 08:43] VITALS: BP 122/70; PULSE 74; O2SAT 98; BMI 26.3
== END 2024-02-10 09:06 | disposition home or self-care (01) ==
PROVIDERS: PCP Internal Medicine; Visit Provider Registered Nurse
DX: M54.31 Sciatica, right side (principal)

== ENCOUNTER 2024-02-19 09:57 | Outpatient (AMB) | payer MEDICARE, MEDICAID, SELFPAY ==
[2024-02-19 11:51] VITALS: BP 116/76; PULSE 76; O2SAT 97; BMI 26.0
--- NOTE | 2024-02-19 11:51 | A.OFFPC_ITS ---
Vital Signs 02/19/24 11:51 Height 5 ft 5 in Weight 156 lb BMI 26.0 BP 116/76 Blood Pressure Location Rt brachial Position Sitting Pulse 76 Pulse Source Pulse Oximeter Pulse Oximetry (%) 97 Oxygen Delivery Method Room Air Intake Visit Reasons: DM, Lipids. Intake Note: Pt is here today for her glucose and lipids f/u Allergies morphine Allergy (Severe, Verified 02/19/24 12:20) Anxiety diphenhydramine [From BENADRYL] Adverse Reaction (Intermediate, Verified 02/19/24 12:20) ANXIETY, AGITATION hydromorphone [HYDROMORPHONE] Adverse Reaction (Intermediate, Verified 02/19/24 12:20) SHAKING,CONFUSION,AGITATION, hyperacitivity codeine [Codeine] Adverse Reaction (Mild, Verified 02/19/24 12:20) AGITATION prochlorperazine [From Compazine] Adverse Reaction (Mild, Verified 02/19/24 12:20) AGITATION, hyperactivity flu vaccine Adverse Reaction (Intermediate, Uncoded 02/19/24 12:20) severe flu like symptoms Medication List - Last Reconciled 02/19/24 by Brittany Rodgers MD alendronate 70 mg PO QWEEK calcium-vitamin D3-vitamin K 500-100-40 mg-unit-mcg 1 tab PO DAILY diazepam 5 mg PO BID PRN dicyclomine 20 mg PO QID ergocalciferol (vitamin D2) 400 units PO DAILY esomeprazole magnesium (Nexium) 40 mg PO DAILY finasteride 2.5 mg PO DAILY fluocinolone-hydroq.-tretinoin 0.01-4-0.05 % (Tri-Nyla) 1 appl topical BEDTIME fluticasone propionate 50 mcg/actuation (Allergy Relief (fluticasone)) 1 spray intranasal DAILY [grab handles As directed] ibuprofen 800 mg PO DAILY PRN lacosamide (Vimpat) 150 mg PO DAILY loratadine (Allergy Relief (loratadine)) 10 mg PO DAILY PRN meclizine 12.5 mg PO BID PRN metronidazole 0.75% 1 appl topical BID montelukast 10 mg PO DAILY nebulizers As directed omega 1-xep-izb-fish oil 1,000 mg (120 mg-180 mg) (Fish Oil) 1 cap PO DAILY peg 104-yosmyqmacvxd-mnpjhzux 1-0.2-0.2 % (Artificial Tears ([id number]-dzhlpjnzo-jrgsjgqm)) 1 drp ophthalmic (eye) DAILY pravastatin 20 mg (1/2 x 40 mg) PO BEDTIME tolterodine ER 8 mg (2 x 4 mg) PO BEDTIME Ventolin HFA 90 mcg/actuation (albuterol sulfate) 2 puffs PO Q6H PRN NS Wixela Inhub 500-50 mcg/dose (fluticasone propion-salmeterol) 1 inh inhalation Q12H NS Tobacco use date assessed: 02/19/24 Fall risk assessment: 2 + Falls in past year Last assessed Fall Risk: 02/19/24 Dental Screening Dental Screen Date: 02/19/24 Did you have a dental visit in the last 12 months?: Yes Did you have a dental problem in the last 6 months where you did not have access to dental care?: No Was dental information given to patient?: Patient has dentist [facility] Medical History History of osteopenia Type 2 diabetes mellitus without complication, without long-term current use of insulin Peripheral venous insufficiency Seasonal allergies Urinary incontinence Fibromyalgia affecting multiple sites Hx of breast cancer Glaucoma Mild intermittent asthma Migraine Generalized anxiety disorder Irritable bowel syndrome with diarrhea History of breast cancer GERD with esophagitis Osteoarthritis Mixed dyslipidemia Renal cyst Surgical History H/O vascular surgery Hx of right knee surgery Hx of sinus surgery H/O colonoscopy History of esophagogastroduodenoscopy (EGD) History of lumpectomy of right breast History of partial mastectomy of left breast History of right cataract surgery H/O bilateral oophorectomy S/P right knee arthroscopy History of foot surgery Family History Father Essential hypertension Diabetes mellitus Dyslipidemia CVA (cerebral vascular accident) Mental health disorder Mother Diabetes mellitus Dyslipidemia Essential hypertension Brother Diabetes mellitus Dyslipidemia Essential hypertension Maternal Aunt Ovarian cancer Paternal Aunt Mental health disorder Social History Housing: Apartment Alcohol intake: never Patient Tobacco Use Status: Never used Tobacco e-Cigarette/Vaping Use: Never Used Current occupational status: unemployed Cognitive needs: No Hearing needs: No Vision needs: No Questionnaire PHQ-9 Over the last 2 weeks, how often have you been bothered by any of the following problems? 1. Little interest or pleasure in doing things: more than half the days 2. Feeling down, depressed, or hopeless: more than half the days 3. Trouble falling or staying asleep, or sleeping too much: several days 4. Feeling tired or having little energy: several days 5. Poor appetite or overeating: several days 6. Feeling bad about yourself - or that you are a failure or have let yourself or your family down: several days 7. Trouble concentrating on things, such as reading the newspaper or watching television: several days 8. Moving or speaking so slowly that other people could have noticed. Or the opposite - being so fidgety or restless that you have been moving around a lot more than usual: several days 9. Thoughts that you would be better off or of hurting yourself in some way: not at all Total score: 10 Source: Developed by Drs. Willam Goodman, Shahana Greenberg, Vic Harrison and colleagues, with an educational willis from [employer]. Thrive Questionnaire Date Thrive assessed: 02/19/24 I am a: Patient What is your living situation today?: I have a steady place to live Within the past 12 months, did the food you bought not last and you didn't have the money to get more?: Sometimes True Within the past 12 months, did you worry whether your food would run out before you got money to buy more?: Sometimes True Do you have trouble paying for medicines?: Yes Do you have trouble getting transportation to medical appointments?: No Do you have trouble paying your heating and electricity bill?: Yes Do you have trouble taking care of your child, family member or friend?: I choose not to answer this question Do you have trouble with day-to-day activities such as bathing, preparing meals, shopping, managing finances, etc.?: I choose not to answer this question Are you currently unemployed and looking for a job?: No Are you interested in more education?: No Please select the resources that you would like help with: Paying for medicine Currently or been in a relationship where the following occur: I choose not to answer THRIVE Score: 3 AUDIT C Alcohol Use Questionnaire (AUDIT-C) 1. How often do you have a drink containing alcohol?: Never Total Score: 0 INGRID-7 AMB Questionnaire INGRID-7 Date INGRID - 7 assessed: 08/06/23 Feeling nervous, anxious, or on edge: 1 = Several days Not being able to stop or control worryin = Several days Source: Developed by Drs. Willam Goodman, Shahana Greenberg, Vic Harrison and colleagues, with an educational willis from [employer]. Physical exam (Primary Care) Vital Signs: Last Vital Signs Pulse 76 02/19/24 11:51 BP 116/76 02/19/24 11:51 Pulse Ox 97 02/19/24 11:51 Oxygen Delivery Method Room Air 02/19/24 11:51 BMI result Body Mass Index 26.0 Tobacco/Smoking Status: Tobacco use Status Tobacco use date assessed 02/19/24 02/19/24 11:53 Patient Tobacco Use Status Never used Tobacco 02/19/24 11:53 e-Cigarette/Vaping Use Never Used 02/19/24 11:53 PHQ-9: PHQ-9 Score PHQ-9: Total score 10 02/19/24 12:23 Thrive Assessment: Date of Thrive Assessment Date Thrive assessed 02/19/24 02/19/24 11:53 Currently or been in a relationship where the following occur: I choose not to answer Results Reviewed Results Reviewed: Laboratory Tests 02/10/24 06:07 Estimat Average Glucose 123 Hemoglobin A1c % 5.9 Name: Teri Alexander Age/Sex: 68/F : 1955 Unit#: [id number] Attend Dr: Brittany Rodgers MD Re02/10/24 Status: DEP REF Location: [facility] Disch: SPEC : [id number] PORFIRIO: 02/10/24 STATUS: COMP REQ : [id number] RECD: 02/10/[address]: Brittany Rodgers MD COMP: 02/10/24 ENTERED: 02/10/[address]: ORDERED: AST, ALT, Lipid Panel, Vitamin D 25-OH Test Result Flag Reference AST (GOT) 34 H 5-31 U/L ALT (GPT) 26 0-31 U/L Triglyceride 161 H <150 mg/dL Desirable Triglyceride: less than 150 mg/dL Borderline High Triglyceride 150-199 mg/dL High Triglyceride: 200-499 mg/dL Very High Triglyceride: greater than or equal to 5OO mg/dL Cholesterol 188 <200 mg/dL Desirable Cholesterol: less than 200 mg/dL Borderline High Cholesterol: 200-239 mg/dL High Cholesterol: greater than 239 mg/dL LDL Calculated 110 H <100 mg/dL Desirable LDL: less than 100 mg/dL Near Optimal/Above Optimal LDL: 110-129 mg/dL Borderline High LDL: 130-159 mg/dL High LDL: 160-189 mg/dL Very High LDL: greater than or equal to 190 mg/dL HDL 46 >40 mg/dL Desirable HDL: greater than 40 mg/dL Note: This HDL assay may give artificially low results in patients with liver disease. Vit D 25-OH Tot 60.0 >30 ng/mL Health Based Reference Values* < 20 ng/mL Deficient 20-30 ng/mL Insufficient > 30 ng/mL Sufficient Coding Level of Care Code Est Pt Level 4 (99911) Complex EM visit Add On G2211 Diagnoses Type 2 diabetes mellitus without complication, without long-term current use of insulin E11.9 Mixed dyslipidemia E78.2 Assessment & Plan Assessment & Plan (1) Type 2 diabetes mellitus without complication, without long-term current use of insulin: Code(s): E11.9 - Type 2 diabetes mellitus without complications Category: Medical Plan: Diabetes mellitus well controlled with hemoglobin A1c at 5.9%. Continue with adherence to healthy eating habits and regular exercise. Reminded to get yearly diabetes eye exam (2) Mixed dyslipidemia: Code(s): E78.2 - Mixed hyperlipidemia Category: Medical Plan: Latest fasting labs showed lipids within normal limits except for LDL cholesterol which is not at goal of less than 100 mg/dL. Will continue on pravastatin 20 mg daily at bedtime, reinforced importance of following low- cholesterol diet and getting regular exercise. Repeat fasting labs in 07/2024 Orders: Orders Hemoglobin A1c 07/21/24 E11.9 - Type 2 diabetes mellitus without complications, E78.2 - Mixed hyperlipidemia, Z87.39 - Personal history of other diseases of the musculoskeletal system and connective tissue Alanine Aminotransferase 07/21/24 E11.9 - Type 2 diabetes mellitus without complications, E78.2 - Mixed hyperlipidemia, Z87.39 - Personal history of other diseases of the musculoskeletal system and connective tissue Microalbumin, Random (w Creat) 07/21/24 E11.9 - Type 2 diabetes mellitus without complications, E78.2 - Mixed hyperlipidemia, Z87.39 - Personal history of other diseases of the musculoskeletal system and connective tissue Lipid Panel 07/21/24 E11.9 - Type 2 diabetes mellitus without complications, E78.2 - Mixed hyperlipidemia, Z87.39 - Personal history of other diseases of the musculoskeletal system and connective tissue Basic Metabolic Panel Fasting 07/21/24 E11.9 - Type 2 diabetes mellitus without complications, E78.2 - Mixed hyperlipidemia, Z87.39 - Personal history of other diseases of the musculoskeletal system and connective tissue Aspartate Amino Transferase 07/21/24 E11.9 - Type 2 diabetes mellitus without complications, E78.2 - Mixed hyperlipidemia, Z87.39 - Personal history of other diseases of the musculoskeletal system and connective tissue Medications: New cholecalciferol (vitamin D3) 50 mcg PO DAILY 90 caps 2RF
== END 2024-02-19 12:34 | disposition home or self-care (01) ==
LOC: HO.HMCC 09:58
PROVIDERS: PCP Internal Medicine; Visit Provider Internal Medicine
DX: E11.9 Type 2 diabetes mellitus without complications (principal); E78.2 Mixed hyperlipidemia

== ENCOUNTER → 2024-02-19 09:57 | Outpatient (BNVA) | payer MEDICARE, MEDICAID, SELFPAY | PROVIDERS: PCP Internal Medicine; Visit Provider Internal Medicine | DX: E11.9 Type 2 diabetes mellitus without complications (principal); E78.2 Mixed hyperlipidemia | CPT/HCPCS: 96127; 99212 ==

== ENCOUNTER 2024-07-24 06:01 | Outpatient (REF) | payer MEDICARE, MEDICAID, SELFPAY ==
--- OUTSIDE RECORDS SUMMARY | 2024-07-24 06:04 | XMS_ITS ---
Author Organization [facility] Address [address] [place] [phone] Care Team Providers Care Fence Post Driver Name Role Phone Brittany Rodgers MD Primary Care Provider Roland Uribe Jr, Yg Tirado REASON FOR VISIT FYI /PA APPROVAL NEXIUM Encounters Encounter Location Date Provider Diagnosis [facility] [address] [facility] [address] [place] [phone] 07/22/2024 Yg Uribe Jr Plan Of Treatment No Information Progress Notes * HENRY YUEN EDOB: (69 yo F)Acc No.[id number]:07/22/2024 Patient:?DUSTIN YUEN :1955???Age:69 Y???Sex:Female Address:[address] [place] [id number] * true * Date:? Generated for Odessai jesus/Jose/eTransmitting on:?07/24/2024 06:03 AM EDT
--- OUTSIDE RECORDS SUMMARY | 2024-07-24 06:04 | XMS_ITS ---
Author Organization [facility] Address [address] [place] [phone] Care Team Providers Care Rubber Curer Name Role Phone Brittany Rodgers MD Primary Care Provider Roland Uribe Jr, Yg Tirado REASON FOR VISIT refill dicyclomine Medications Medication SIG (Take, Route, Fr equency, Duration) Notes Start Date End Date Status Dicyclomine HCl 20 MG 1 tablet Orally 2- 4 times a day for 30 days 03/01/2021 Active Encounters Encounter Location Date Provider Diagnosis [facility] [address] [place] [phone] 11/25/2023 Yg Uribe Jr Plan Of Treatment Medication Medication Name Sig Start Date Stop Date Notes Dicyclomine HCl 20 MG 1 tablet Orally 2- 4 times a day for 30 days 03/01/2021 Progress Notes * HENRY YUEN EDOB: (68 yo F)Acc No.[id number]:11/25/2023 Patient:?DUSTIN YUEN :1955???Age:68 Y???Sex:Female Address:[address] [place] [address] * Refills? Refill Dicyclomine HCl Tablet, 20 MG, Orally, 120, 1 tablet, 2-4 times a day, 30 days, Refills=6 * true * Date:? Generated for Odessai jesus/Jose/eTransmitting on:?07/24/2024 06:04 AM EDT
--- OUTSIDE RECORDS SUMMARY | 2024-07-24 06:05 | XMS_ITS ---
Author Organization [facility] Address [address] [place] [phone] Care Team Providers Care Road Advisor Name Role Phone Vishal POWERS, Brittany Primary Care Provider Roland Uribe Jr, Yg Tirado REASON FOR VISIT pathology Encounters Encounter Location Date Provider Diagnosis [facility] [address] [facility] [address] [place] [phone] 06/20/2023 Yg Uribe Jr Plan Of Treatment No Information Progress Notes * HENRY YUEN EDOB: (68 yo F)Acc No.[id number]:06/20/2023 Patient:?DUSTIN YUEN :1955???Age:68 Y???Sex:Female Address:[address] [place] [id number] * true * Date:? Generated for Odessai jesus/Jose/eTransmitting on:?07/24/2024 06:04 AM EDT
[2024-07-24 11:11] LABS: Alanine Aminotransferase 21 U/L (0-31); Anion Gap 11 (12-20); Aspartate Amino Transferase 26 U/L (5-31); Blood Urea Nitrogen 16 mg/dL (9-16); Calcium 9.6 mg/dL (8.4-10.2); Carbon Dioxide 25 mmol/L (22-29); Chloride 110 mmol/L (96-108); Cholesterol 270 mg/dL (<200); Estimated Glomerular Filt Rate > 60; Glucose Fasting 109 mg/dL (60-99); HDL Cholesterol 45 mg/dL (>40); LDL Cholesterol Calculated 198 mg/dL (<100); Potassium 3.7 mmol/L (3.3-5.1); Sodium 142 mmol/L (135-145); Triglycerides 139 mg/dL (<150)
[2024-07-24 11:21] LABS: Estimated Average Glucose 123 mg/dL; Hemoglobin A1C 153.5845 umol/L; Hemoglobin A1c % 5.9 % (<6.0); Total Hemoglobin (HGBA1C) 3712.6405 umol/L
[2024-07-24 11:49] LABS: Creatinine Urine 170.39 mg/dL; Microalbum/Creatinine Ratio Ur 8.8 ug/mg cr (<30)
== END 2024-07-24 06:02 | disposition home or self-care (01) ==
LOC: HO.HMGCLDS 06:01
PROVIDERS: PCP Internal Medicine; Visit Provider Internal Medicine
DX: E11.9 Type 2 diabetes mellitus without complications (principal); Z87.39 Personal history of other diseases of the musculoskeletal system and connective tissue; E78.2 Mixed hyperlipidemia
CPT/HCPCS: 36415; 80048; 80061; 82043; 82570; 83036; 84450; 84460

== ENCOUNTER 2024-08-11 10:16 | Outpatient (AMB) | payer MEDICARE, MEDICAID, SELFPAY ==
--- NOTE | 2024-08-11 11:36 | A.OFFPC_ITS ---
Vital Signs 08/11/24 11:48 Height 5 ft 5 in Weight 157 lb BMI 26.1 BP 112/70 Blood Pressure Location Rt brachial Position Sitting Respiration 16 Pulse 86 Pulse Source Pulse Oximeter Temp 97.8 F Temp Source Oral Pulse Oximetry (%) 98 Oxygen Delivery Method Room Air Intake Visit Reasons: Annual PE Intake Note: Pt is here today for her PE: Last bone denisty scan 04/02/23, colonoscopy 06/14/23 Allergies morphine Allergy (Severe, Verified 08/11/24 12:03) Anxiety diphenhydramine [From BENADRYL] Adverse Reaction (Intermediate, Verified 08/11/24 12:03) ANXIETY, AGITATION hydromorphone [HYDROMORPHONE] Adverse Reaction (Intermediate, Verified 08/11/24 12:03) SHAKING,CONFUSION,AGITATION, hyperacitivity codeine [Codeine] Adverse Reaction (Mild, Verified 08/11/24 12:03) AGITATION prochlorperazine [From Compazine] Adverse Reaction (Mild, Verified 08/11/24 12:03) AGITATION, hyperactivity flu vaccine Adverse Reaction (Intermediate, Uncoded 08/11/24 12:03) severe flu like symptoms Medication List - Last Reconciled 08/11/24 by Brittany Rodgers MD alendronate 70 mg PO QWEEK calcium-vitamin D3-vitamin K 500 mg-100 unit -40 mcg 1 tab PO DAILY cholecalciferol (vitamin D3) 50 mcg PO DAILY diazepam 5 mg PO BID PRN dicyclomine 20 mg PO QID esomeprazole magnesium (Nexium) 40 mg PO DAILY finasteride 2.5 mg PO DAILY fluocinolone-hydroq.-tretinoin 0.01-4-0.05 % (Tri-Nyla) 1 appl topical BEDTIME fluticasone propionate 50 mcg/actuation (Allergy Relief (fluticasone)) 1 spray intranasal DAILY [grab handles As directed] ibuprofen 800 mg PO DAILY PRN lacosamide (Vimpat) 150 mg PO DAILY loratadine (Allergy Relief (loratadine)) 10 mg PO DAILY PRN meclizine 12.5 mg PO BID PRN metronidazole 0.75% 1 appl topical BID montelukast 10 mg PO DAILY nebulizers As directed omega 4-bat-ixa-fish oil 1,000 (120-180) mg (Fish Oil) 1 cap PO DAILY peg 244-utgriiqbczxw-wgykavch 1-0.2-0.2 % (Artificial Tears ([id number])) 1 drp ophthalmic (eye) DAILY pravastatin 20 mg (1/2 x 40 mg) PO BEDTIME tolterodine ER 8 mg (2 x 4 mg) PO BEDTIME Ventolin HFA 90 mcg/actuation (albuterol sulfate) 2 puffs PO Q6H PRN NS Wixela Inhub 500-50 mcg/dose (fluticasone propion-salmeterol) 1 inh inhalation Q12H NS Tobacco use date assessed: 08/11/24 Fall risk assessment: 2 + Falls in past year Last assessed Fall Risk: 08/11/24 Dental Screening Dental Screen Date: 08/11/24 Did you have a dental visit in the last 12 months?: Yes Did you have a dental problem in the last 6 months where you did not have access to dental care?: No Was dental information given to patient?: Patient has dentist HPI Annual PE HPI Details 69 year-old lady with history of hyperli pidemia, mild intermittent asthma, and prediabetes, here today for a physical exam. She has history of breast cancer status post mastectomy, currently followed for screening at [facility] with up-to-date mammogram . She had a normal bone density done in 2022, and colonoscopy screening is up-to-date, last done 06/14/[address] Uribe with removal of a tubular adenoma polyp, due for repeat colonoscopy again in 5 years. She sees [facility] for her routine skin cancer screening. Currently being followed for her chronic pain at [facility] pain management, sees Dr. Sweeney. She sees Dr. Rodarte for her varicose veins, scheduled for vein ablation, wears compression stockings She had recent fasting labs done which showed impaired fasting glucose and high er LDL cholesterol levels as compared to last check. [facility] Medical History (Updated 08/11/24 @ 12:25 by Brittany Rodgers MD) Venous insufficiency of both lower extremities History of osteopenia Type 2 diabetes mellitus without complication, without long-term current use of insulin Peripheral venous insufficiency Seasonal allergies Urinary incontinence Fibromyalgia affecting multiple sites Hx of breast cancer Glaucoma Mild intermittent asthma Migraine Generalized anxiety disorder Irritable bowel syndrome with diarrhea History of breast cancer GERD with esophagitis Osteoarthritis Mixed dyslipidemia Renal cyst Surgical History H/O vascular surgery Hx of right knee surgery Hx of sinus surgery H/O colonoscopy History of esophagogastroduodenoscopy (EGD) History of lumpectomy of right breast History of partial mastectomy of left breast History of right cataract surgery H/O bilateral oophorectomy S/P right knee arthroscopy History of foot surgery Family History Father Essential hypertension Diabetes mellitus Dyslipidemia CVA (cerebral vascular accident) Mental health disorder Mother Diabetes mellitus Dyslipidemia Essential hypertension Brother Diabetes mellitus Dyslipidemia Essential hypertension Maternal Aunt Ovarian cancer Paternal Aunt Mental health disorder Social History Housing: Apartment Alcohol intake: never Patient Tobacco Use Status: Never used Tobacco e-Cigarette/Vaping Use: Never Used Current occupational status: unemployed Cognitive needs: No Hearing needs: No Vision needs: No Questionnaire PHQ-9 Over the last 2 weeks, how often have you been bothered by any of the following problems? 1. Little interest or pleasure in doing things: several days 2. Feeling down, depressed, or hopeless: several days 3. Trouble falling or staying asleep, or sleeping too much: several days 4. Feeling tired or having little energy: several days 5. Poor appetite or overeating: several days 6. Feeling bad about yourself - or that you are a failure or have let yourself or your family down: not at all 7. Trouble concentrating on things, such as reading the newspaper or watching television: several days 8. Moving or speaking so slowly that other people could have noticed. Or the opposite - being so fidgety or restless that you have been moving around a lot more than usual: several days 9. Thoughts that you would be better off or of hurting yourself in some way: not at all Total score: 7 Depression Screening Interpretation: Positive (Currently followed by ps ychiatrist and therapist at [facility]) Depression Screening Follow-up: Existing condition, In treatment and Community Mental Health Worker F/U Depression Screening Done: Yes Source: Developed by Drs. Willam Goodman, Shahana Greenberg, Vic Harrison and colleagues, with an educational willis from [employer]. Thrive Questionnaire Date Thrive assessed: 08/11/24 I am a: Patient What is your living situation today?: I have a steady place to live Within the past 12 months, did the food you bought not last and you didn't have the money to get more?: Sometimes True Within the past 12 months, did you worry whether your food would run out before you got money to buy more?: Sometimes True Do you have trouble paying for medicines?: Yes Do you have trouble getting transportation to medical appointments?: No Do you have trouble paying your heating and electricity bill?: Yes Do you have trouble taking care of your child, family member or friend?: I choose not to answer this question Do you have trouble with day-to-day activities such as bathing, preparing meals, shopping, managing finances, etc.?: I choose not to answer this question Are you currently unemployed and looking for a job?: No Are you interested in more education?: No Please select the resources that you would like help with: Paying for medicine Currently or been in a relationship where the following occur: I choose not to answer THRIVE Score: 3 AUDIT C Alcohol Use Questionnaire (AUDIT-C) 1. How often do you have a drink containing alcohol?: Never Total Score: 0 INGRID-7 AMB Questionnaire INGRID-7 Date INGRID - 7 assessed: 08/06/23 Source: Developed by Drs. Willam Goodman, Shahana Greenberg, Vic Harrison and colleagues, with an educational willis from [employer]. Review of Systems Const Reports no additional complaints and Reports fatigue Eyes Details: Dr. 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 [facility] Denies breast swelling, Denies breast pain, Denies breast mass and Denies rash Neuro Denies abnormal gait, Denies dizziness and Denies focal weakness Psych Reports no additional complaints Endo Reports fatigue, Denies polyphagia, Denies polydipsia and Denies polyuria Juan R/Lymph Reports no additional complaints Aller/Immun Denies wheezing Physical exam (Primary Care) Vital Signs: Last Vital Signs Temp 97.8 F 08/11/24 11:48 Pulse 86 08/11/24 11:48 Resp 16 08/11/24 11:48 BP 112/70 08/11/24 11:48 Pulse Ox 98 08/11/24 11:48 Oxygen Delivery Method Room Air 08/11/24 11:48 BMI result Body Mass Index 26.1 Tobacco/Smoking Status: Tobacco use Status Tobacco use date assessed 08/11/24 08/11/24 11:38 Patient Tobacco Use Status Never used Tobacco 08/11/24 11:38 e-Cigarette/Vaping Use Never Used 08/11/24 11:38 Depression Screening Interpretation: Positive (Currently followed by psychiatrist and therapist at [facility]) Depression Screening Follow-up: Existing condition, In treatment and Community Mental Health Worker F/U Thrive Assessment: Date of Thrive Assessment Date Thrive assessed 08/11/24 08/11/24 11:38 Currently or been in a relationship where the following occur: I choose not to answer Const Other: Alert oriented x3, no acute distress HENMT Ears: external ears normal General nose exam: Normal external nose present Face and sinus: Yes face symmetric Mouth: Normal oral and palatal mucosa present, oropharynx normal and moist mucous membranes Eyes General: appearance normal, both eyes and all related structures Neck Neck: Yes full ROM and Yes supple Chest Other: Positive left breast reconstruction status post mastectomy Chest palpation & inspection: normal inspection of the chest Breast/axilla palpation: normal palpation of the breasts (right) Resp Auscultation: clear to auscultation bilaterally Cardio Other: S1-S2 present regular rate and rhythm GI Palpation (GI): Soft to palpation, nontender, no guarding and no masses General: Yes no CVA tenderness Back/Spine/Pelvis Back: no CVA tenderness Skin General skin exam: no rashes or lesions noted Neuro General: gait normal, Normal light touch and pain sensation, no focal motor deficits, CN's II-XI intact bilaterally and normal sensation to monofilament Extrem General: Yes full ROM, Yes no joint enlargement, Yes no pedal edema and Yes normal gait Psych Appearance: grossly normal and well kempt Mental Status: mental status grossly normal Speech and movement: Normal speech and movement present Affect: normal affect Attitude: cooperative Thought process: Normal thought process present Results Reviewed Results Reviewed: Laboratory Tests 07/24/24 06:10 Estimat Average Glucose 123 Hemoglobin A1c % 5.9 Name: Teri Alexander Age/Sex: 69/F : 1955 Unit#: [id number] Attend Dr: Brittany Rodgers MD Re07/24/24 Status: DEP [facility] Disch: SPEC : [id number] PORFIRIO: 07/24/24 STATUS: COMP REQ : [id number] RECD: 07/24/[address]: Brittany Rodgers MD COMP: 07/24/24 ENTERED: 07/24/[address]: ORDERED: Met Prof Fast, AST, ALT, Lipid Panel Test Result Flag Reference Sodium 142 135-145 mmol/L Potassium 3.7 3.3-5.1 mmol/L CL 110 H 96-108 mmol/L CO2 25 22-29 mmol/L Gap 11 L 12-20 BUN 16 9-16 mg/dL Creat 0.75 0.5-1.4 mg/dL eGFR > 60 Chronic Kidney Disease: Estimated GFR < 60 mL/min/1.73m2 Severe Kidney Disease: Estimated GFR < 15 mL/min/1.73m2 FBS 109 H 60-99 mg/dL A fasting glucose from 100-125 mg/dl is considered impaired (pre-diabetes). CA 9.6 8.4-10.2 mg/dL AST (GOT) 26 5-31 U/L ALT (GPT) 21 0-31 U/L Triglyceride 139 <150 mg/dL Desirable Triglyceride: less than 150 mg/dL Borderline High Triglyceride 150-199 mg/dL High Triglyceride: 200-499 mg/dL Very High Triglyceride: greater than or equal to 5OO mg/dL Cholesterol 270 H <200 mg/dL Desirable Cholesterol: less than 200 mg/dL Borderline High Cholesterol: 200-239 mg/dL High Cholesterol: greater than 239 mg/dL LDL Calculated 198 H <100 mg/dL Desirable LDL: less than 100 mg/dL Near Optimal/Above Optimal LDL: 110-129 mg/dL Borderline High LDL: 130-159 mg/dL High LDL: 160-189 mg/dL Very High LDL: greater than or equal to 190 mg/dL HDL 45 >40 mg/dL Desirable HDL: greater than 40 mg/dL Note: This HDL assay may give artificially low results in patients with liver disease. Coding Level of Care Code New Pt Prev Care >65yr (79983) Diagnoses Annual visit for general adult medical examination with abnormal findings Z00.01 Mixed dyslipidemia E78.2 Mild intermittent asthma without complication J45.20 Asthma complication type: uncomplicated Glaucoma H40.9 Fibromyalgia affecting multiple sites M79.7 Type 2 diabetes mellitus without complication, without long-term current use of insulin E11.9 Venous insufficiency of both lower extremities I87.2 Generalized anxiety disorder F41.1 Gastroesophageal reflux disease with esophagitis without hemorrhage K21.00 Esophagitis bleeding: without hemorrhage Migraine without aura and without status migrainosus, not intractable G43.009 Intractability: not intractable Migraine type: without aura Status migrainosus presence: without status migrainosus Assessment & Plan Assessment & Plan (1) Annual visit for general adult medical examination with abnormal findings: Code(s): Z00.01 - Encounter for general adult medical examination with abnormal findings Plan: Reviewed recent fasting lab results with patient. Continue regular dental visit every 6 months and regular eye exams, at least every 2 years. Take adequate calcium in diet and vitamin-D 3 at 2000 IU per cap once a day, in addition to weight-bearing exercises to help maintain good muscle tone and weight control. Instructed to do self-breast exam, and currently followed at [facility] oncology for her . Up-to-date with her bone density scan, currently on alendronate. Up-to-date with her colonoscopy screening, due again in 2028 up-to-date with her vaccinations. (2) Mixed dyslipidemia: Code(s): E78.2 - Mixed hyperlipidemia Category: Medical Plan: Recent fasting lipids showed marked increase in LDL cholesterol, triglycerides within normal limits, increase pravastatin dose to 80 mg at bedtime, stressed importance of following a low-cholesterol diet. Repeat fasting lipids again in 3 months (3) Mild intermittent asthma: Code(s): J45.20 - Mild intermittent asthma, uncomplicated Category: Medical Qualifiers: Asthma complication type: uncomplicated Qualified Code(s): J45.20 - Mild intermittent asthma, uncomplicated Plan: Has Continue montelukast (4) Glaucoma: Code(s): H40.9 - Unspecified glaucoma Category: Medical Plan: Sees Dr. Jacobs (5) Fibromyalgia affecting multiple sites: Code(s): M79.7 - Fibromyalgia Category: Medical Plan: Followed by pain management at [facility] (6) Type 2 diabetes mellitus without complication, without long-term current use of insulin: Code(s): E11.9 - Type 2 diabetes mellitus without complications Category: Medical Plan: Diabetes mellitus controlled with diet , with latest hemoglobin A1c at 5.9%. Sees Dr. Jacobs yearly (7) Venous insufficiency of both lower extremities: Comment: Scheduled for vein ablation with Dr. Willam Rodarte Code(s): I87.2 - Venous insufficiency (chronic) (peripheral) Category: Medical Plan: Scheduled for vein ablation by Dr. Rodarte (8) Generalized anxiety disorder: Code(s): F41.1 - Generalized anxiety disorder Category: Medical Plan: Followed at [facility] (9) GERD with esophagitis: Code(s): K21.00 - Gastro-esophageal reflux disease with esophagitis, without bleeding Category: Medical Qualifiers: Esophagitis bleeding: without hemorrhage Qualified Code(s): K21.00 - Gastro-esophageal reflux disease with esophagitis, without bleeding Plan: Continued on esomeprazole 40 mg daily (10) Migraine: Comment: History of Botox injection by Dr. Pack Code(s): G43.909 - Migraine, unspecified, not intractable, without status migrainosus Category: Medical Qualifiers: Intractability: not intractable Migraine type: without aura Status migrainosus presence: without status migrainosus Qualified Code(s): G43.009 - Migraine without aura, not intractable, without status migrainosus Plan: Followed by Neurology Orders: Orders Lipid Panel 10/24/24 E78.2 - Mixed hyperlipidemia Aspartate Amino Transferase 10/24/24 E78.2 - Mixed hyperlipidemia Creatine Kinase Total 10/24/24 E78.2 - Mixed hyperlipidemia Alanine Aminotransferase 10/24/24 E78.2 - Mixed hyperlipidemia Medications: New pravastatin 80 mg PO BEDTIME 90 tabs 3RF E78.2 - Mixed hyperlipidemia Discontinued pravastatin Discontinued Reason: Doctor's Order 20 mg (1/2 x 40 mg) PO BEDTIME 90 tabs 1RF
[2024-08-11 11:48] VITALS: BP 112/70; PULSE 86; RESP 16; TEMP 36.6; O2SAT 98; BMI 26.1
--- OUTSIDE RECORDS SUMMARY | 2024-08-11 11:51 | XMS_ITS | Continuity of Care Document ---
Author Organization [facility] Address [address] [place] [address] Phone Care Team Providers Care Antique Jewelry Repairer Name Role Phone Cayden POWERS, RVT, RPVI, [...] Mins- [place] & [place] [facility] MD SNYDER, [address] [place] [address] Dr Wiley 1000SuCally asencio [place], [id number], tel:[phone] CVR [facility] Venous insufficiency (chronic) (peripheral) 5 Cayden POWERS RVT, REGINA Quarles. [address] [place] [address], [address], [place] castro [place], [id number] , [place]. tel:[phone] Referring Provider: Dipak Spencer, [address] [place] [address], [address], [place], [address]. tel:[phone] [facility], [address] [place] [address] Dr Wiley [address] [address], [id number], tel:[phone] [facility] Varicose veins of bilateral lower extremities with pain 5 Cayden POWERS RVT, REGINA Quarles. [address] [place] [address], Suite [facility], Jessica castro [place], [id number] , [place]. tel:[phone] Referring Provider: Dipak Spencer, [address] [place] [address], [address], [place], [address]. tel:[phone] [facility], [address] [place] [address] Dr Wiley [address], [id number], tel:[phone] [facility] Encounter for follow-up examination after completed treatment for conditions other than malignant neoplasmChronic venous hypertension (idiopathic) with other complications of left lower extremity 5 Cayden POWERS RVT, REGINA Quarles. [address] [place] [address], [address], [place] castro [place], [id number] , [place]. tel:[phone] Referring Provider: Dipak Spencer, [address] [place] [address], [address], [place], [address]. tel:[phone] [facility], [address] [place] [address] [address], [id number], [place] tel:[phone] CVR - [facility] Chronic venous hypertension (idiopathic) with inflammation of left lower extremity 5 Cayden POWERS RVT, REGINA Quarles. [address] [place] [address], [address], [place], [id number] , [place]. tel:[phone] Referring Provider: Dipak Gant MD L, [address] [place] [address], [address], [place], [address]. tel:[phone] [facility], [address] [place] [address] Dr [address], [id number], [place] tel:[phone] CVR - [facility] Encounter for follow-up examination after completed treatment for conditions other than malignant neoplasmPain in right leg 5 Cayden POWERS RVT, REGINA Quarles. [address] [place] [address], [address], [facility] [place], [id number] , [place]. tel:[phone] Referring Provider: Dipak Gant MD L, [address] [place] [address], [address], [place], [address]. tel:[phone] [facility], [address] [place] [address] Dr [address]ally [place], [id number], [place] tel:[phone] CVR - [facility] No Information 5 Cayden POWERS RVT, REGINA Quarles. [address] [place] [address], [address], [facility] [place], [id number] , [place]. tel:[phone] [facility], [address] [place] [address] Dr Wiley [address]Suite [place], [id number], [place] tel:[phone] CVR - [facility] Chronic venous hypertension (idiopathic) with inflammation of right lower extremity 5 Cayden POWERS RVT, REGINA Quarles. [address] [place] [address] Suite [facility], Jessica cast[place], [id number] , [place]. tel:[phone] Referring Provider: Dipak Gant MD L, [address] [place] [address], [address], [place], [address]. tel:[phone] Office/Oupt E&M New Pt 45 Mins- CT & [place] [facility], [address] [place] [address] [facility] [address] [address], [id number], [place] tel:[phone] CVR - [place] [facility] Chronic venous hypertension (idiopathic) with other complications of bilateral lower extremity Feb-2 0 5 Cayden POWERS RVT, REGINA Quarles. [address] [place] [address], Jessica castro [place], [id number] , [place]. [phone] Referring Provider: Dipak Gant MD L, [address] [place] [address], [address], [place], [address]. tel:[phone] [place] [facility], [address] [place] [address] [facility] 1000[address] 1000Cally [place], [id number], [place] tel:[phone] CVR - [place] [facility] Chronic venous hypertension (idiopathic) with other complications of bilateral lower extremity Feb-2 0 5 Cayden POWERS RVT, REGINA Quarles. [address] [place] [address], [place] [address], Jessica castro [place], [id number] , [place]. [phone] Referring Provider: Dipak Gant MD L, [address] [place] [address], [address], [place], [address]. tel:[phone] Office/Outpt E&M Established 15 Mins [place] [facility], [address] [place] [address] [facility] 1000[address] 1000[place]ally [place], [id number], [place] tel:[phone] CVR - [place] [facility] Venous insufficiency (chronic) (peripheral) Apr-2 3 Dony Parisi. [address] [place] [address], [place], [address], [place]. tel:[phone] Referring Provider: Dipak Gant MD L, [address] [place] [address], [address], [place], [address]. tel:[phone] [facility], [address] [place] [address] Dr [address], [place], [id number], tel:[phone] CVR - [place] [facility] Venous insufficiency (chronic) (peripheral) Jul-0 3 Dony POWERS FACS Roseann Parisi. [address] [place] [address], [address], [place], [address], [place]. [phone] Referring Provider: Dipak Gant MD L, [address] [place] [address], [facility] B, [place], [address]. tel:[phone] Office/Oupt E&M New Pt 30 Mins [facility], [address] [place] [address] [address], [place], [id number], [place] tel:[phone] CVR - [place] [facility] Venous insufficiency (chronic) (peripheral)Die Sinker mp and spasm Mar-2 3 Dony POWERS FACS Roseann Parisi. [address] [place] [address], [place] [address], [place], [address], [place]. [phone] Referring Provider: Dipak Gant MD L, [address] [place] [address], [facility], [place], [address]. tel:[phone] Family History Family Member Type Diagnosis Age At Onset No Information Payers Payer name Insurance type Covered libertarian ID Authoriza tion(s) Medicare LEEANNA ZAIDI [id number] Medical Assistance LEEANNA LOVELACE [id number] Social History Type Description Quantity Date Captured [...] measure Related to Venous insufficiency (chronic) (peripheral) Diet education Related to Body mass index (BMI) 26.0-26.9, adult Giving Encouragement to exercise Related to Body mass index (BMI) 26.0-26.9, adult Lifestyle education Related to B joanne mass index (BMI) 26.0-26.9, adult Patient education booklet given Related to Venous insufficiency (chronic) (peripheral) Diet education Related to Body mass index (BMI) 26.0-26.9, adult Giving Encouragement to exercise Related to Body mass index (BMI) 26.0-26.9, adult Lifestyle education Related to B joanne mass index (BMI) 26.0-26.9, adult Patient education booklet given Related to Chronic venous hypertension (idiopathic) with other complications of bilateral lower extremity Diet education Related to Body mass index (BMI) 26.0-26.9, adult Giving Encouragement to exercise Related to Body mass index (BMI) 26.0-26.9, adult Lifestyle education Related to B joanne mass index (BMI) 26.0-26.9, adult Patient education booklet given Related to Venous insufficiency (chronic) (peripheral) Compression stocking usage as conservative measure Related to Venous insufficiency (chronic) (peripheral) Assessments Type Assessment Date No Information Patient Care Teams Name Effective Dates (start - stop) Status Members No Information
--- OUTSIDE RECORDS SUMMARY | 2024-08-11 11:51 | XMS_ITS ---
Author Organization [facility] Address [address] [place] [address] Care Team Providers Care Deli Cook Name Role Phone Brittany Rodgers MD Primary Care Provider Roland Uribe Jr, Yg Tirado REASON FOR VISIT FYI /PA APPROVAL NEXIUM Encounters Encounter Location Date Provider Diagnosis [facility] [address] [facility] [address] [place] [phone] 07/22/2024 Yg Uribe Jr Plan Of Treatment No Information Progress Notes * HENRY YUEN EDOB: (69 yo F)Acc No.[id number]:07/22/2024 Patient:?DUSTIN YUEN :1955???Age:69 Y???Sex:Female Address:[address] [place] [address] * true * Date:? Generated for Odessai jesus/Jose/eTransmitting on:?08/11/2024 11:51 AM EDT
--- OUTSIDE RECORDS SUMMARY | 2024-08-11 11:52 | XMS_ITS ---
Author Organization [facility] Address [address] [place] [phone] Care Team Providers Care Remote Ruby On Rails Developer Name Role Phone Vishal POWERS, Brittany Primary Care Provider Roland Uribe Jr, Yg Tirado REASON FOR VISIT pathology Encounters Encounter Location Date Provider Diagnosis [facility] [address] [facility] [address] [place] [phone] 06/20/2023 Yg Uribe Jr Plan Of Treatment No Information Progress Notes * HENRY YUEN EDOB: (68 yo F)Acc No.[id number]:06/20/2023 Patient:?DUSTIN YUEN :1955???Age:68 Y???Sex:Female Address:[address] [place] [address] * true * Date:? Generated for Printi ng/Famattg/eTransmitting on:?08/11/2024 11:51 AM EDT
--- OUTSIDE RECORDS SUMMARY | 2024-08-11 11:52 | XMS_ITS | Patient Health Record ---
Author Organization [facility] Address [address] [place] [phone] Care Team Providers Care Paving Rammer Name Role Phone Vishal POWERS, Brittany Primary Care Provider Yg Irby Jr Unavailable Allergies Allergen (clinical drug ingredient) Drug/Non Drug Allergy documented on EMR Reaction Allergy Type Onset Date Status hydromorphone Hydromorphone HCl Unknown Drug Allergy Active diphenhydramine Benadryl Unknown Drug Allergy A ctive compazine (uncoded) Unknown Allergy Active codeine codeine (uncoded) Unknown Allergy Ac tive morphine morphine (uncoded) Unknown Allergy A ctive Reason For Referral No Information Medications Medication SIG (Take, Route, Frequency, Duration) Notes Start Date End Date Status diazePAM 5 MG 1 tablet as needed O rally Twice a day Active NexIUM 40 MG 1 capsule Orally twi ce a day 03/26/2012 Active Alendronate Sodium 70 MG 1 tablet Orally Once a week Active Fish Oil 1000 MG 1 capsule Orally Onc e a day Active Fluticasone Propionate 50 MCG/ACT 1 spray in each nostril Nasally Once a day Active Advair Diskus 500-50 MCG/DOSE 1 puff Inhalation Twice a day/prn Active Calcium + D 500-1000-40 MG-UNT-MCG 1 tablet with meals Orally QD Active NexIUM 40 MG 1 capsule Orally Onc e a day for 30 days 06/20/2018 Active Albuterol Sulfate HFA 108 (90 Base) MCG/ACT 2 puffs as needed Inhalation every 4 hrs Active Dicyclomine HCl 20 MG 1 tablet Orally 2- 4 times a day for 30 days 03/01/2021 Active Vitamin D2 400 UNIT 1 Orally qd Active Pravastatin Sodium 20 MG 1 tablet Orally Once a day Active Vimpat 150 MG 1 tablet Orally Once a day Active oxyBUTYnin Chloride ER 10 MG 1 tablet Orally Once a day A ctive MiraLax (colon prep) 17 GM/SCOOP mixed with Gatorade or Crystal Light Orally begin at 5:00 p.m. the day before the procedure for 1 day 04/10/2023 Active Tri-Nyla 0.01-4-0.05 % 1 application to affected area at bedtime Externally Once a day Active Immunizations Vaccine Route Administration Date Status Comme nts Influenza Unknown 03/28/2018 Refused Influenza Unknown 04/11/2022 Refused Influenza Unknown 04/10/2023 Refused Problems Problem Type SNOMED Code ICD Code Onset Dates Problem Status W/U Status Risk Notes Problem 107044528 Colon cancer screening (Z12.11) Active confirmed Problem History of polyp of colon (situation) (638946976) Personal history of colonic polyps (Z86.010) Active confirmed Problem 297945453 Irritable bowel syndrome with diarrhea (K58.0) Active confirmed Problem 386519339 Gastroesophageal reflux disease without esophagitis (K21.9) Active confirmed Problem 46536540 Esophageal spasm (K22.4) Active confirmed Encounters Encounter Location Date Provider Diagnosis [facility] [address] [place] [phone] 11/25/2023 Yg Uribe Jr [facility] [address] [place] [phone] 07/22/2024 Yg Uribe Jr Plan Of Treatment Pending Test Test Name Order Date XR GI SERIES 06/24/2014 XR GI SERIES 01/11/2016 Future Test Test Name Order Date UPPER GI ENDOSCOPY 05/25/2015 UPPER GI ENDOSCOPY 03/28/2018 COLONOSCOPY 03/28/2018 COLONOSCOPY 04/10/2023 Insurance Providers Payer Name Payer Address Payer Phone Subscriber Number Group Number Insured Name Patient Relationship to Insured Coverage Start Date Coverage End Date MEDICARE OF [place] [address] [place] [id number] [id number] HENRY YUEN Self - patient is the insured MEDICAID OF [facility] [address] [place] [phone] [id number] HENRY YUEN Self - patient is the insured Medical (General) History Medical History History ICD Code gastroesophageal reflux dise ase, EGD 09/17/18, no Mendoza's or H. pylori, fundic gland polyps currently on treatment with Nexium dysphogia odynophagia elevated cholesterol asthma breast cancer colonoscopy 09/17/18, sessile serrated polyps x2 in the cecum, five-year followup kidney cysts urinary incontinence seasonal alleries Surgical History Surgery Date(Month/Year) oophorectomy sinus surgery mastectomy-left 1992 lumpectomy, right breast 2004 right knee arthroscopy 2009 foot surgery knee surgery september and dec 2015 knee surgery-right 08/16/2016 peripheral venous insufficiency lower ex tremities status post EVLT 2019
--- OUTSIDE RECORDS SUMMARY | 2024-08-11 11:52 | XMS_ITS ---
Author Organization [facility] Address [address] [place] [phone] Care Team Providers Care Special Procedure Technologist Name Role Phone Brittany Rodgers MD Primary Care Provider Roland Uribe Jr, Yg Tirado [phone] REASON FOR VISIT refill dicyclomine Medications Medication SIG (Take, Route, Fr equency, Duration) Notes Start Date End Date Status Dicyclomine HCl 20 MG 1 tablet Orally 2- 4 times a day for 30 days 03/01/2021 Active Encounters Encounter Location Date Provider Diagnosis [facility] [address] [place] [phone] 11/25/2023 Yg Uribe Jr Plan Of Treatment Medication Medication Name Sig Start Date Stop Date Notes Dicyclomine HCl 20 MG 1 tablet Orally 2- 4 times a day for 30 days 03/01/2021 Progress Notes * HENRY YUEN EDOB: (68 yo F)Acc No.[id number]:11/25/2023 Patient:?DUSTIN YUEN :1955???Age:68 Y???Sex:Female Address:[address] [place] [address] * Refills? Refill Dicyclomine HCl Tablet, 20 MG, Orally, 120, 1 tablet, 2-4 times a day, 30 days, Refills=6 * true * Date:? Generated for Odessai jesus/Jose/eTransmitting on:?08/11/2024 11:51 AM EDT
== END 2024-08-11 12:30 | disposition home or self-care (01) ==
LOC: HO.HMCC 10:17
PROVIDERS: PCP Internal Medicine; Visit Provider Internal Medicine
DX: Z00.00 Encounter for general adult medical examination without abnormal findings (principal); E78.2 Mixed hyperlipidemia; E11.9 Type 2 diabetes mellitus without complications; J45.20 Mild intermittent asthma, uncomplicated; H40.9 Unspecified glaucoma; M79.7 Fibromyalgia; I87.2 Venous insufficiency (chronic) (peripheral); F41.1 Generalized anxiety disorder; K21.00 Gastro-esophageal reflux disease with esophagitis, without bleeding; G43.009 Migraine without aura, not intractable, without status migrainosus

== ENCOUNTER → 2024-08-11 10:16 | Outpatient (BNVA) | payer MEDICARE, MEDICAID, SELFPAY | PROVIDERS: PCP Internal Medicine; Visit Provider Internal Medicine | DX: Z00.01 Encounter for general adult medical examination with abnormal findings (principal); E78.2 Mixed hyperlipidemia; J45.20 Mild intermittent asthma, uncomplicated; H40.9 Unspecified glaucoma; M79.7 Fibromyalgia; E11.9 Type 2 diabetes mellitus without complications; I87.2 Venous insufficiency (chronic) (peripheral); F41.1 Generalized anxiety disorder; K21.00 Gastro-esophageal reflux disease with esophagitis, without bleeding; G43.009 Migraine without aura, not intractable, without status migrainosus | CPT/HCPCS: 99397 ==

== ENCOUNTER 2024-11-18 06:01 | Outpatient (REF) | payer MEDICARE, MEDICAID, SELFPAY ==
[2024-11-18 10:26] LABS: Alanine Aminotransferase 19 U/L (0-31); Aspartate Amino Transferase 25 U/L (5-31); Cholesterol 183 mg/dL (<200); HDL Cholesterol 47 mg/dL (>40); Triglycerides 118 mg/dL (<150)
== END 2024-11-18 06:02 | disposition home or self-care (01) ==
LOC: HO.HMGCLDS 06:01
PROVIDERS: PCP Internal Medicine; Visit Provider Internal Medicine
DX: E78.2 Mixed hyperlipidemia (principal)
CPT/HCPCS: 36415; 80061; 82550; 84450; 84460

== ENCOUNTER 2024-11-24 07:25 | Outpatient (AMB) | payer MEDICARE, MEDICAID, SELFPAY ==
--- OUTSIDE RECORDS SUMMARY | 2023-06-14 04:20 | XMS_ITS ---
Author Organization [facility] Address [address] [place] [id number] Care Team Providers Care Refuse Laborer Name Role Phone Vishal POWERS, Brittany Primary Care Provider Roland Uribe Jr, Yg Tirado REASON FOR VISIT screening Problems Problem Type SNOMED Code ICD Code Onset Dates Problem Status W/U Status Risk Notes Problem History of polyp of colon (situation) (236538448) Personal history of colonic polyps (Z86.010) Active confirmed Encounters Encounter Location Date Provider Diagnosis [facility] Out[facility] [address] [place] [phone] 06/14/2023 Yg Uribe Jr Encounter for screening colonoscopy Z12.11 ; Colon polyps K63.5 and Personal history of colonic polyps Z86.010 Assessments Encounter Date Diagnosis (ICD Code) Assessment Notes Treatment Notes Treatment Clinical Notes Section Notes 06/14/2023 Encounter for screening colonoscopy (ICD-10 - Z12.11) 06/14/2023 Colon polyps (ICD-10 - K63.5) 06/14/2023 Personal history of colonic polyps (ICD-10 - Z86.010) Plan Of Treatment No Information Progress Notes * HENRY YUEN EDOB: (69 yo F)Acc No.[id number]:06/14/2023 COLON WITH MAC Patient: Joni HENRY KEITH Provider: Yessica Uribe MD :[id number] A ge:68 Y S ex:Female Date:06/14/2023 Address:[address] [place] [address] Pcp:Brittany Rodgers MD Subjective: * Chief Complaints: * 1 . Screening. * Medical History: Objective: * Vitals: Assessment: * Assessment: 1. E ncounter for screening colonoscopy - Z12.11 (Primary) 2 . C olon polyps - K63.5 3 . P ersonal history of colonic polyps - Z86.010 Plan: * Treatment: * Procedure Codes: G 0105 COLOREC CANCR SCR; COLNSCPY HI RISK, [address] COLONOSCOPY AND BIOPSY, 0529F INTRVL 3+YRS PTS CLNSCP DOCD * * The named appointment provid er may or may not be the originator of this progress note, and it is not deemed complete until electronically signed by the appointment provider. Sign off status: Pending * Provider: Yessica Uribe MD Date: 0 06/14/2023 Generated for Pete lee/Jose/Shannenitting on: 0 11/24/2024 07:27 AM EDT
[2024-11-24 08:03] VITALS: BP 118/72; PULSE 90; RESP 15; TEMP 36.6; O2SAT 98; BMI 25.6
--- NOTE | 2024-11-24 08:03 | MHC.PC.OV ---
Vital Signs 11/24/24 08:03 Height 5 ft 5 in Weight 154 lb BMI 25.6 BP 118/72 Blood Pressure Location Rt brachial Position Sitting Respiration 15 Pulse 90 Pulse Source Pulse Oximeter Temp 97.8 F Temp Source Oral Pulse Oximetry (%) 98 Oxygen Delivery Method Room Air Intake Visit Reasons: 3 month follow up Intake Note: Pt is here today for her 3mo. f/u Allergies morphine Allergy (Severe, Verified 11/24/24 08:26) Anxiety diphenhydramine (From BENADRYL) Adverse Reaction (Intermediate, Verified 11/24/24 08:26) ANXIETY, AGITATION hydromorphone (HYDROMORPHONE) Adverse Reaction (Intermediate, Verified 11/24/24 08:26) SHAKING,CONFUSION,AGITATION, hyperacitivity codeine (Codeine) Adverse Reaction (Mild, Verified 11/24/24 08:26) AGITATION prochlorperazine (From Compazine) Adverse Reaction (Mild, Verified 11/24/24 08:26) AGITATION, hyperactivity flu vaccine Adverse Reaction (Intermediate, Uncoded 11/24/24 08:26) severe flu like symptoms Medication List - Last Reconciled 11/24/24 by Brittany Rodgers MD amitriptyline 10 mg PO BEDTIME calcium-vitamin D3-vitamin K 500 mg-100 unit -40 mcg 1 tab PO DAILY cholecalciferol (vitamin D3) 50 mcg PO DAILY clobetasol 0.05% 1 appl topical BID diazepam 5 mg PO BID PRN dicyclomine 20 mg PO QID esomeprazole magnesium (Nexium) 40 mg PO DAILY finasteride 2.5 mg PO DAILY fluocinolone-hydroq.-tretinoin 0.01-4-0.05 % (Tri-Nyla) 1 appl topical BEDTIME fluticasone propionate 50 mcg/actuation (Allergy Relief (fluticasone)) 1 spray intranasal DAILY [grab handles As directed] ibuprofen 800 mg PO DAILY PRN lacosamide (Vimpat) 150 mg PO DAILY loratadine (Allergy Relief (loratadine)) 10 mg PO DAILY PRN meclizine 12.5 mg PO BID PRN minoxidil mg PO montelukast 10 mg PO DAILY nebulizers As directed omega 0-pev-bnz-fish oil 1,000 (120-180) mg (Fish Oil) 1 cap PO DAILY peg 770-snahdcdqgbro-eqnwdqwn 1-0.2-0.2 % (Artificial Tears ([id number]-hpttplhhz-zqxmymuy)) 1 drp ophthalmic (eye) DAILY pravastatin 80 mg PO BEDTIME tolterodine ER 8 mg (2 x 4 mg) PO BEDTIME Ventolin HFA 90 mcg/actuation (albuterol sulfate) 2 puffs PO Q6H PRN NS Wixela Inhub 500-50 mcg/dose (fluticasone propion-salmeterol) 1 inh inhalation Q12H NS Tobacco use date assessed: 11/24/24 Fall risk assessment: 2 + Falls in past year Last assessed Fall Risk: 11/24/24 Dental Screening Dental Screen Date: 11/24/24 Did you have a dental visit in the last 12 months?: Yes Did you have a dental problem in the last 6 months where you did not have access to dental care?: No Was dental information given to patient?: Patient has dentist HPI 3 month follow up HPI Details - The patient is a 69-year-old female here today for follow-up on her lipids. Has been taking pravastatin 80 mg at bedtime and has been compliant with healthy eating habits. Tolerating medication well, latest fasting labs showed marked improvement in her total cholesterol and LDL cholesterol levels - She reports a four-day history of headache, facial pain, and nasal congestion, with otalgia left, suspecting a sinus infection. Despite taking Tylenol and Theraflu, symptoms persist. Denies any accompanying fever or chills - The patient has a longstanding history of benign positional vertigo, leading to dizziness, and has previously undergone physical therapy for ear crystal repositioning. She continues to experience dizziness , takes meclizine as needed which affords only temporary relief, and has not had recent physical therapy for vertigo. [facility] Medical History Benign positional vertigo Venous insufficiency of both lower extremities History of osteopenia Type 2 diabetes mellitus without complication, without long-term current use of insulin Peripheral venous insufficiency Seasonal allergies Urinary incontinence Fibromyalgia affecting multiple sites Hx of breast cancer Glaucoma Mild intermittent asthma Migraine Generalized anxiety disorder Irritable bowel syndrome with diarrhea History of breast cancer GERD with esophagitis Osteoarthritis Mixed dyslipidemia Renal cyst Surgical History H/O vascular surgery Hx of right knee surgery Hx of sinus surgery H/O colonoscopy History of esophagogastroduodenoscopy (EGD) History of lumpectomy of right breast History of partial mastectomy of left breast History of right cataract surgery H/O bilateral oophorectomy S/P right knee arthroscopy History of foot surgery Family History Father Essential hypertension Diabetes mellitus Dyslipidemia CVA (cerebral vascular accident) Mental health disorder Mother Diabetes mellitus Dyslipidemia Essential hypertension Brother Diabetes mellitus Dyslipidemia Essential hypertension Maternal Aunt Ovarian cancer Paternal Aunt Mental health disorder Social History Housing: Apartment Alcohol intake: never Patient Tobacco Use Status: Never used Tobacco e-Cigarette/Vaping Use: Never Used Current occupational status: unemployed Cognitive needs: No Hearing needs: No Vision needs: No Questionnaire PHQ-9 Over the last 2 weeks, how often have you been bothered by any of the following problems? 1. Little interest or pleasure in doing things: several days 2. Feeling down, depressed, or hopeless: not at all 3. Trouble falling or staying asleep, or sleeping too much: not at all 4. Feeling tired or having little energy: several days 5. Poor appetite or overeating: several days 6. Feeling bad about yourself - or that you are a failure or have let yourself or your family down: not at all 7. Trouble concentrating on things, such as reading the newspaper or watching television: several days 8. Moving or speaking so slowly that other people could have noticed. Or the opposite - being so fidgety or restless that you have been moving around a lot more than usual: not at all 9. Thoughts that you would be better off or of hurting yourself in some way: not at all Total score: 4 Depression Screening Interpretation: Negative Depression Screening Done: Yes Source: Developed by Drs. Willam Goodman, Shahana Greenberg, Vic Harrison and colleagues, with an educational willis from [employer]. Thrive Questionnaire Date Thrive assessed: 11/17/24 I am a: Patient What is your living situation today?: I have a steady place to live Within the past 12 months, did the food you bought not last and you didn't have the money to get more?: Sometimes True Within the past 12 months, did you worry whether your food would run out before you got money to buy more?: Often true Do you have trouble paying for medicines?: Yes Do you have trouble getting transportation to medical appointments?: No Do you have trouble paying your heating and electricity bill?: Yes Do you have trouble taking care of your child, family member or friend?: No Do you have trouble with day-to-day activities such as bathing, preparing meals, shopping, managing finances, etc.?: Yes Are you currently unemployed and looking for a job?: I choose not to answer this question Are you interested in more education?: No Please select the resources that you would like help with: Paying for medicine Currently or been in a relationship where the following occur: I choose not to answer THRIVE Score: 3 AUDIT C Alcohol Use Questionnaire (AUDIT-C) 1. How often do you have a drink containing alcohol?: Never Total Score: 0 INGRID-7 AMB Questionnaire INGRID-7 Date INGRID - 7 assessed: 08/06/23 Feeling nervous, anxious, or on edge: 1 = Several days Not being able to stop or control worryin = Several days Worrying too much about different things: 1 = Several days Trouble relaxin = Several days Being so restless that it is hard to sit still: 1 = Several days Becoming easily annoyed or irritable: 1 = Several days Feeling afraid as if something awful might happen: 1 = Several days Total INGRID-7 score (0-4 normal; 5-9 mild; 10-14 moderate; 15-21 severe): 7 Source: Developed by Drs. Willam Goodman, Shahana Greenberg, Vic Harrison and colleagues, with an educational willis from [employer]. Review of Systems Const Reports no additional complaints and Reports weight loss (Approximately 5 lb weight loss since last visit) Eyes Details: Dr. 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 [facility] Denies breast swelling, Denies breast pain, Denies breast mass and Denies rash Neuro Denies abnormal gait and Denies focal weakness Psych Reports no additional complaints Endo Denies polyphagia, Denies polydipsia and Denies polyuria Juan R/Lymph Reports no additional complaints Aller/Immun Denies wheezing Physical exam (Primary Care) Vital Signs: Last Vital Signs Temp 97.8 F 11/24/24 08:03 Pulse 90 11/24/24 08:03 Resp 15 11/24/24 08:03 BP 118/72 11/24/24 08:03 Pulse Ox 98 11/24/24 08:03 Oxygen Delivery Method Room Air 11/24/24 08:03 BMI result Body Mass Index 25.6 Tobacco/Smoking Status: Tobacco use Status Tobacco use date assessed 11/24/24 11/24/24 08:16 Patient Tobacco Use Status Never used Tobacco 11/24/24 08:06 e-Cigarette/Vaping Use Never Used 11/24/24 08:06 PHQ-9: PHQ-9 Score PHQ-9: Total score 8 11/24/24 08:06 Depression Screening Interpretation: Negative Thrive Assessment: Date of Thrive Assessment Date Thrive assessed 11/17/24 11/24/24 08:06 Currently or been in a relationship where the following occur: I choose not to answer Const Other: Alert oriented x3, no acute distress HENMT Ears: external ears normal General nose exam: Normal external nose present Face and sinus: Yes face symmetric and Yes sinus tenderness (Left maxillary area) Mouth: Normal oral and palatal mucosa present, oropharynx normal and moist mucous membranes Eyes General: appearance normal, both eyes and all related structures Neck Neck: Yes full ROM and Yes supple Resp Auscultation: clear to auscultation bilaterally Cardio Other: S1-S2 present regular rate and rhythm GI Palpation (GI): Soft to palpation, nontender, no guarding and no masses Skin General skin exam: no rashes or lesions noted Neuro General: gait normal, Normal light touch and pain sensation, no focal motor deficits, CN's II-XI intact bilaterally and normal sensation to monofilament Extrem General: Yes full ROM, Yes no joint enlargement, Yes no pedal edema and Yes normal gait Psych Appearance: grossly normal and well kempt Mental Status: mental status grossly normal Speech and movement: Normal speech and movement present Affect: normal affect Results Reviewed Results Reviewed: Name: Teri Alexander Age/Sex: 69/F : 1955 Unit#: [id number] Attend Dr: Brittany Rodgers MD Re11/18/24 Status: DEP [facility] Disch: SPEC : [id number] PORFIRIO: 11/18/24 STATUS: COMP REQ : [id number] RECD: 11/18/[address]: Brittany Rodgers MD COMP: 11/18/24 ENTERED: 11/18/[address]: ORDERED: AST, ALT, CK Total, Lipid Panel Test Result Flag Reference AST (GOT) 25 5-31 U/L ALT (GPT) 19 0-31 U/L CK Total 123 26-140 U/L Triglyceride 118 <150 mg/dL Desirable Triglyceride: less than 150 mg/dL Borderline High Triglyceride 150-199 mg/dL High Triglyceride: 200-499 mg/dL Very High Triglyceride: greater than or equal to 5OO mg/dL Cholesterol 183 <200 mg/dL Desirable Cholesterol: less than 200 mg/dL Borderline High Cholesterol: 200-239 mg/dL High Cholesterol: greater than 239 mg/dL LDL Calculated 113 H <100 mg/dL Desirable LDL: less than 100 mg/dL Near Optimal/Above Optimal LDL: 110-129 mg/dL Borderline High LDL: 130-159 mg/dL High LDL: 160-189 mg/dL Very High LDL: greater than or equal to 190 mg/dL HDL 47 >40 mg/dL Desirable HDL: greater than 40 mg/dL Note: This HDL assay may give artificially low results in patients with liver disease. Coding Level of Care Code Est Pt Level 4 (40227) Diagnoses Mixed dyslipidemia E78.2 Benign paroxysmal positional vertigo, unspecified laterality H81.10 Laterality: unspecified laterality Acute non-recurrent maxillary sinusitis J01.00 Recurrence: non-recurrent Assessment & Plan Assessment & Plan (1) Mixed dyslipidemia: Code(s): E78.2 - Mixed hyperlipidemia Category: Medical (2) Benign positional vertigo: Code(s): H81.10 - Benign paroxysmal vertigo, unspecified ear Category: Medical Qualifiers: Laterality: unspecified laterality Qualified Code(s): H81.10 - Benign paroxysmal vertigo, unspecified ear (3) Acute maxillary sinusitis: Code(s): J01.00 - Acute maxillary sinusitis, unspecified Category: Medical Qualifiers: Recurrence: non-recurrent Qualified Code(s): J01.00 - Acute maxillary sinusitis, unspecified Plan The patient will commence treatment for acute maxillary sinusitis with amoxicillin-clavulanic acid, 875-125 mg, 1 tablet every 12 hours, s taken with food to prevent stomach upset. A referral to [facility] physical therapy has been arranged to evaluate and treat for possible benign positional vertigo Continuation of current medications, including pravastatin, is advised, with marked improvement in her total cholesterol LDL cholesterol levels. Reinforced importance of adhering to healthy eating habits and getting regular exercise. Repeat another fasting lipid panel and liver enzyme in six-months Patient was informed and verbally consented to the use of an ambient scribe for clinic note documentation during this visit. Orders: Orders Alanine Aminotransferase 04/22/25 E78.2 - Mixed hyperlipidemia PT Evaluation and Treatment Today H81.10 - Benign paroxysmal vertigo, unspecified ear Lipid Panel 04/22/25 E78.2 - Mixed hyperlipidemia Aspartate Amino Transferase 04/22/25 E78.2 - Mixed hyperlipidemia Medications: New amoxicillin-pot clavulanate 875-125 mg 1 tab PO Q12H 20 tabs 0RF 10 days J01.00 - Acute maxillary sinusitis, unspecified
== END 2024-11-24 09:11 | disposition home or self-care (01) ==
LOC: HO.HMCC 07:26
PROVIDERS: PCP Internal Medicine; Visit Provider Internal Medicine
DX: E78.2 Mixed hyperlipidemia (principal); H81.10 Benign paroxysmal vertigo, unspecified ear; J01.00 Acute maxillary sinusitis, unspecified

== ENCOUNTER → 2024-11-24 07:25 | Outpatient (BNVA) | payer MEDICARE, MEDICAID, SELFPAY | PROVIDERS: PCP Internal Medicine; Visit Provider Internal Medicine | DX: E78.2 Mixed hyperlipidemia (principal); H81.10 Benign paroxysmal vertigo, unspecified ear; J01.00 Acute maxillary sinusitis, unspecified | CPT/HCPCS: 99212 ==

== ENCOUNTER 2024-12-15 08:51 | Outpatient (REF) | payer MEDICARE, MEDICAID, SELFPAY ==
--- OUTSIDE RECORDS SUMMARY | 2024-07-27 05:45 | XMS_ITS | Continuity of Care Document ---
Author Organization [facility] Address [address] [place] [address] Phone Care Team Providers Care Print Binding Worker Name Role Phone Cayden POWERS, RVT, RPVI, Willam Unavailable U navailable Allergies, Adverse Reactions, Alerts Substance Reaction Status Criticality hydromorphone Active No Information codeine Active No Information DIPHENHYDRAMINE HCL Active No Infor mation morphine Active No Information Procedures Procedure Date Office/Outpt E&M Established 15 Mins- CT & [place] Duplex Scan-extrem Veins; Comp- CT & [place] Duplex Scan-extrem Veins; Uni/ CT & MA M Varithena, Single Truncal Vein - CT & MA Duplex Scan-extrem Veins; Uni/ CT & MA M Varithena, Single Truncal Vein - CT & MA Office/Oupt E&M New Pt 45 Mins- CT & [place] Duplex Scan-extrem Veins; Comp- CT & MA Office/Outpt E&M Established 15 Mins Jul Duplex Scan-extrem Veins; Comp Office/Oupt E&M New Pt 30 Mins Advance Directives Directive Yes / No Effective Date File Name Other Directive No 07/27/2024 N/A WARNING:The information contained in this section is historical and is provided for information only and does not constitute a legal document or any assurance that the information is still accurate. Please verify the information with the vilchis of the legal document before using it for clinical purposes. Encounters Encounter Description Practice Location Reason(s) For Visit Diagnoses Date Provider Providers Copied on Encounter Office/Outpt E&M Established 15 Mins- CT & [place] [facility] MD SNYDER, [address] [place] [address] Dr Wiley 1000SuCally asencio [place], [id number], tel:[phone] CVR [facility] Venous insufficiency (chronic) (peripheral) 5 Cayden POWERS RVT, REGINA Quarles. [address] [place] [address], [address], [place], [id number] , [place]. tel:[phone] Referring Provider: Dipak Spencer, [address] [place] [address], [address], [place], [address]. tel:[phone] [facility], [address] [place] [address] Dr Wiley [address] [address]C[place], [id number], tel:[phone] [facility] Varicose veins of bilateral lower extremities with pain 5 Cayden POWERS RVT, REGINA Quarles. [address] [place] [address], Suite [facility], Jessica castro [place], [id number] , [place]. tel:[phone] Referring Provider: Dipak Spencer, [address] [place] [address], [address], [place], [address]. tel:[phone] [facility], [address] [place] [address] Dr Wiley [address]ally [place], [id number], tel:[phone] [facility] Encounter for follow-up examination after completed treatment for conditions other than malignant neoplasmChronic venous hypertension (idiopathic) with other complications of left lower extremity 5 Cayden POWERS RVT, REGINA Quarles. [address] [place] [address], [address], [place], [id number] , [place]. tel:[phone] Referring Provider: Dipak Spencer, [address] [place] [address], [address], [place], [address]. tel:[phone] [facility], [address] [place] [address] [address]Cally [place], [id number], [place] tel:[phone] CVR - [facility] Chronic venous hypertension (idiopathic) with inflammation of left lower extremity 5 Cayden POWERS RVT, REGINA Qurales. [address] [place] [address], [address], [place], [id number] , [place]. tel:[phone] Referring Provider: Dipak Gant MD L, [address] [place] [address], [address], [place], [address]. tel:[phone] [facility], [address] [place] [address] Dr Wiley 1000[address] 1000[place], [id number], [place] tel:[phone] CVR - [facility] Encounter for follow-up examination after completed treatment for conditions other than malignant neoplasmPain in right leg 5 Cayden POWERS RVT, REGINA Quarles. [address] [place] [address], [address], [facility] [place], [id number] , [place]. tel:[phone] Referring Provider: Dipak Gant MD L, [address] [place] [address], [address], [place], [address]. tel:[phone] [facility], [address] [place] [address] Dr Wiley [address] 1000Cally [place], [id number], [place] tel:[phone] [facility] - [facility] No Information 5 Cayden POWERS RVT, REGINA Quarles. [address] [place] [address], [address], [facility] [place], [id number] , [place]. tel:[phone] [facility], [address] [place] [address] Dr Wiley 1000Suite Cally Gramajo [place], [id number], [place] tel:[phone] CVR - [facility] Chronic venous hypertension (idiopathic) with inflammation of right lower extremity 5 Cayden POWERS RVT, REGINA Quarles. [address] [place] [address] Suite [facility], Jessica castro [place], [id number] , [place]. tel:[phone] Referring Provider: Dipak Gant MD L, [address] [place] [address], [address], [place], [address]. tel:[phone] Office/Oupt E&M New Pt 45 Mins- CT & [place] [facility], [address] [place] [address] [facility] [address] [address], [id number], [place] tel:[phone] [facility] [facility] [place] Chronic venous hypertension (idiopathic) with other complications of bilateral lower extremity Feb-2 0 5 Cayden POWERS RVT, REGINA Quarles. [address] [place] [address], Jessica cast[place], [id number] , [place]. [phone] Referring Provider: Dipak Gant MD L, [address] [place] [address], [address], [place], [address]. tel:[phone] [facility], [address] [place] [address] [facility] 1000[address] 1000Cally [place], [id number], [place] tel:[phone] CV[facility] - [place] [facility] [place] Chronic venous hypertension (idiopathic) with other complications of bilateral lower extremity Feb-2 0 5 Cayden POWERS RVT, REGINA Quarles. [address] [place] [address], [place] [address], [place], [id number] , [place]. [phone] Referring Provider: Dipak Gant MD L, [address] [place] [address], [address], [place], [address]. tel:[phone] Office/Outpt E&M Established 15 Mins [facility], [address] [place] [address] [facility] 1000[address] 1000C[place], [id number], [place] tel:[phone] [facility] - [place] [facility] [place] Venous insufficiency (chronic) (peripheral) Apr-2 3 Dony Parisi. [address] [place] [address], [place], [address], [place]. tel:[phone] Referring Provider: Dipak Gant MD L, [address] [place] [address], [address], [place], [address]. tel:[phone] [facility], [address] [place] [address] Dr Wiley [address], [place], [id number], tel:[phone] [facility] [place] [facility] [place] Venous insufficiency (chronic) (peripheral) Jul-0 3 Dony POWERS FACS Roseann Parisi. [address] [place] [address], [address], [place], [address], [place]. [phone] Referring Provider: Dipak Gant MD L, [address] [place] [address], [facility] B, [place], [address]. tel:[phone] Office/Oupt E&M New Pt 30 Mins [facility], [address] [place] [address] 1000[address], [place], [id number], [place] tel:[phone] [facility] - [place] [facility] [place] Venous insufficiency (chronic) (peripheral)[employer] mp and spasm Mar-2 3 Dony POWERS FACS Roseann Parisi. [address] [place] [address], [place] [address], [place], [address], [place]. [phone] Referring Provider: Dipak Gant MD L, [address] [place] [address], [facility], [place], [address]. tel:[phone] Family History Family Member Type Diagnosis Age At Onset No Information Payers Payer name Insurance type Covered republican ID Authoriza tion(s) Medicare LEEANNA ZAIDI [id number] Medical Assistance LEEANNA LOVELACE [id number] Social History Type Description Quantity Date Captured Comments Alcohol Use Details Unknown Caffeine Use Details Unknown Tobacco Use Status Current non-smoker Smoking Status Never Smoker Non-Smoking Tobacco Use Details : No Details Available : No Details Available Sex Female Vital Signs Date / Time: Height Weight BMI Pulse Rate Blood Pressure Temperature Respiratory Rate Body Surface Area Head Circumference Head Circ. Percentile Wt./Jose. Percentile BMI percentile Pulse Ox Inhaled Ox 73.030 kg (161.00 lbs) 26.8 6 kg/m eter (2) 130/80 mm[Hg] Chief Complaint And Reason For Visit No Information Reason For Referral Reason For Referral No Information Plan Of Treatment Date Type Action Status Goal Diet education completed Goal Diet education completed Goal Tobacco cessation counseling completed Goal Diet education completed Referral Ordered: Weight management: Referral to physician timeframe: 3 Months (related to Body mass index (BMI) 26.0-26.9, adult) ordered Referral Ordered: Weight management: Referral to physician timeframe: 3 Months (related to Body mass index (BMI) 26.0-26.9, adult) ordered Referral Ordered: Weight management: Referral to physician timeframe: 3 Months (related to Body mass index (BMI) 26.0-26.9, adult) ordered History Of Present Illness Encounter Date Complaint History Of Prese nt Illness No Information Functional Status Date Functional Assessmen t No Information Instructions Date Instruction Additional Infor mation Diet education Related to Body mass index (BMI) 26.0-26.9, adult Giving Encouragement to exercise Related to Body mass index (BMI) 26.0-26.9, adult Lifestyle education Related to B joanne mass index (BMI) 26.0-26.9, adult Patient education booklet given Related to Venous insufficiency (chronic) (peripheral) Compression stocking usage as conservative measure Related to Venous insufficiency (chronic) (peripheral) Patient education booklet given Related to Chronic venous hypertension (idiopathic) with other complications of bilateral lower extremity Lifestyle education Related to B joanne mass index (BMI) 26.0-26.9, adult Giving Encouragement to exercise Related to Body mass index (BMI) 26.0-26.9, adult Diet education Related to Body mass index (BMI) 26.0-26.9, adult Compression stocking usage as conservative measure Related to Venous insufficiency (chronic) (peripheral) Patient education booklet given Related to Venous insufficiency (chronic) (peripheral) Lifestyle education Related to B joanne mass index (BMI) 26.0-26.9, adult Giving Encouragement to exercise Related to Body mass index (BMI) 26.0-26.9, adult Diet education Related to Body mass index (BMI) 26.0-26.9, adult Assessments Type Assessment Date No Information Patient Care Teams Name Effective Dates (start - stop) Status Members No Information
--- NOTE | ~2024-12-15 | MR_ITS ---
EXAMINATION: MR ABDOMEN WITHOUT AND WITH CONTRAST CLINICAL INFORMATION: Complex cyst, left kidney. Disorder of the kidney and ureter. COMPARISON: Correlated to renal ultrasound dated December 10, [address] IV [address] CT abdomen dated October 31, 2011.. TECHNIQUE: MR abdomen was performed without and with use of 7.0 mL intravenous (Gadavist) gadolinium contrast. Postcontrast images are performed in multiphase dynamic sequences. Imaging was performed in 3 planes. No reported immediate complication. FINDINGS: LUNG BASES: No enhancing lesion. LIVER, GALLBLADDER, AND BILIARY TREE: Liver measures 14 cm. No focal mass. Main portal veins, hepatic veins and intrahepatic portion of the IVC are patent. Gallbladder is fluid-filled. Nondistended. No pericholecystic fluid collection or gallbladder wall thickening. Common bile duct measures 4 mm. PANCREAS: No focal mass. No main pancreatic ductal dilatation. No peripancreatic fluid collection. SPLEEN: 10 cm. No mass. ADRENAL GLANDS: No nodular lesions. KIDNEYS AND URETERS: Right kidney: No hydronephrosis. No renal mass. Normal enhancement pattern of the renal parenchyma. 9 mm fluid signal characteristic lesion at the corticomedullary junction of the lower pole. 3 mm nonenhancing cyst, anterior midportion. Left kidney: 22 mm exophytic thin septated nonenhancing fluid signal characteristic lesion, upper pole. 8 mm nonenhancing fluid signal characteristic lesion in the posterior upper pole midportion junction of the renal cortex. Large, 70 mm thin wall nonenhancing fluid signal characteristic lesion in the lower pole. 40 mm thin wall nonenhancing fluid signal characteristic in the anterior lower pole. 6 mm nonenhancing fluid signal characteristic lesion in the medial aspect of the midportion/lower pole junction. 10 mm nonenhancing fluid signal characteristic lesions in the parapelvic midportion. No hydronephrosis. No enhancing mass in the pararenal compartment/retroperitoneum. GASTROINTESTINAL TRACT: Abundant stool. No intestinal distention. Probable diverticulum in the fundus of the stomach. ABDOMINAL WALL: Small fat-containing umbilical hernia. LYMPH NODES: No mesenteric or retroperitoneal lymphadenopathy VASCULAR: No aneurysm or dissection, abdominal aorta. OSSEOUS STRUCTURES: Multilevel thoracolumbar spondylosis without acute fracture or gross listhesis. 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 MR/MR abdomen wo/w con IMPRESSION: Bosniak type II cysts, left kidney. Bosniak type I cyst, both kidneys. Electronically signed by: Matti Seymour MD 12/15/2024 11:13 AM EDT
--- OUTSIDE RECORDS SUMMARY | 2024-12-15 09:13 | XMS_ITS | Patient Health Record ---
Author Organization [facility] Address [address] [place] [id number] Care Team Providers Care Bobbin Collector Name Role Phone Vishal POWERS, Brittany Primary Care Provider Yg Irby Jr Unavailable [phone] Allergies Allergen (clinical drug ingredient) Drug/Non Drug [...] Problem Status W/U Status Risk Notes Problem 147079259 Colon cancer screening (Z12.11) Active confirmed Problem Personal history of colonic polyps (Z86.010) Active confirmed Problem 447683415 Irritable bowel syndrome with diarrhea (K58.0) Active confirmed Problem [id number] Gastroesophageal reflux disease without esophagitis (K21.9) Active confirmed Problem 47924762 Esophageal spasm (K22.4) Active confirmed Encounters Encounter Location Date Provider Diagnosis [facility] [address] [place] [address] 07/22/2024 Yg Uribe Jr Plan Of Treatment [...] OF [place] [address] [place] [address] [id number] HENRY YUEN Self - patient is the insured MEDICAID OF [facility] [address] [place] [phone] [id number] HENRY YUEN Self - patient is the [...]
== END 2024-12-15 08:52 | disposition home or self-care (01) ==
LOC: HO.MRI 08:51
PROVIDERS: PCP Internal Medicine; Visit Provider Nurse Practitioner Family
DX: N28.89 Other specified disorders of kidney and ureter (principal)
CPT/HCPCS: 74183; A9585

== ENCOUNTER → 2024-12-15 09:25 | Outpatient (BNV) | payer MEDICARE, MEDICAID, SELFPAY | PROVIDERS: PCP Internal Medicine; Visit Provider Radiology Diagnostic Radiology | DX: N28.1 Cyst of kidney, acquired (principal) | CPT/HCPCS: 74183 ==

== ENCOUNTER 2024-12-24 08:27 | Outpatient (AMB) | payer MEDICARE, MEDICAID, SELFPAY ==
--- OUTSIDE RECORDS SUMMARY | 2024-07-27 05:45 | XMS_ITS | Continuity of Care Document ---
Author Organization [facility] Address [address] [place] [address] Phone Care Team Providers Care Bar Pilot Name Role Phone Cayden POWERS, RVT, RPVI, [...] Mins- CT & [place] [facility] MD SNYDER, [address] [place] [address] Dr Wiley 1000SuCally asencio MD, [id number], tel:[phone] CVR [facility] Venous insufficiency (chronic) (peripheral) 5 Cayden POWERS RVT, REGINA Quarles. [address] [place] [address], [address], [place], [id number] , [place]. tel:[phone] Referring Provider: Dipak Spencer, [address] [place] [address], [address], [place], [address]. tel:[phone] [facility], [address] [place] [address] Dr Wiley 1000[place] [address], [id number], tel:[phone] [facility] Varicose veins of bilateral lower extremities with pain 5 Cayden POWERS RVT, REGINA Quarles. [address] [place] [address], Suite [facility], Jessica cast[place], [id number] , [place]. tel:[phone] Referring Provider: Dipak Spencer, [address] [place] [address], [address], [place], [address]. tel:[phone] [facility], [address] [place] [address] Dr Wiley 1000[address] 1000Cally [place], [id number], tel:[phone] [facility] Encounter for follow-up examination after completed treatment for conditions other than malignant neoplasmChronic venous hypertension (idiopathic) with other complications of left lower extremity 5 Cayden POWERS RVT, REGINA Quarles. [address] [place] [address], [address], [place], [id number] , [place]. tel:[phone] Referring Provider: Dipak Spencer, [address] [place] [address], [address], [place], [address]. tel:[phone] [facility], [address] [place] [address] [address] 1000Cally [place], [id number], [place] tel:[phone] CVR - [facility] Chronic venous hypertension (idiopathic) with inflammation of left lower extremity 5 Cayden POWERS RVT, REGINA Quarles. [address] [place] [address], [address], [place], [id number] , [place]. tel:[phone] Referring Provider: Dipak Gant MD L, [address] [place] [address], [address], [place], [address]. tel:[phone] [facility], [address] [place] [address] Dr Wiley [address] 1000[place]ally [place], [id number], [place] tel:[phone] CVR - [facility] Encounter for follow-up examination after completed treatment for conditions other than malignant neoplasmPain in right leg 5 Cayden POWERS RVT, REGINA Quarles. [address] [place] [address], [address], [facility] [place], [id number] , [place]. tel:[phone] Referring Provider: Dipak Gant MD L, [address] [place] [address], [address], [place], [address]. tel:[phone] [facility], [address] [place] [address] Dr Wiley 1000[address] 1000Cally [place], [id number], [place] tel:[phone] CVR - [facility] No Information 5 Cayden POWERS RVT, REGINA Quarles. [address] [place] [address], [address], [facility] [place], [id number] , [place]. tel:[phone] [facility], [address] [place] [address] Dr Wiley [address]Suite Cally Gramajo [place], [id number], [place] tel:[phone] CVR - [facility] Chronic venous hypertension (idiopathic) with inflammation of right lower extremity 5 Cayden POWERS RVT, REGINA Quarles. [address] [place] [address] Suite [facility], Jessica castro [place], [id number] , [place]. tel:[phone] Referring Provider: Dipak Gant MD L, [address] [place] [address], [address], [place], [address]. tel:[phone] Office/Oupt E&M New Pt 45 Mins- CT & [place] [facility], [address] [place] [address] [facility] [address] [address], [id number], [place] tel:[phone] [facility] - [place] [facility] [place] Chronic venous hypertension (idiopathic) with other complications of bilateral lower extremity Feb-2 0 5 Cayden POWERS RVT, REGINA Quarles. [address] [place] [address], Jessica castro [place], [id number] , [place]. [phone] Referring Provider: Dipak Gant MD L, [address] [place] [address], [address], [place], [address]. tel:[phone] [place] [facility], [address] [place] [address] [facility] 1000[address] 1000Cally [place], [id number], [place] tel:[phone] [facility] - [place] [facility] [place] Chronic venous hypertension (idiopathic) with other complications of bilateral lower extremity Feb-2 0 5 Cayden POWERS RVT, REGINA Quarles. [address] [place] [address], [place] [address], Jessica castro [place], [id number] , [place]. [phone] Referring Provider: Dipak Gant MD L, [address] [place] [address], [address], [place], [address]. tel:[phone] Office/Outpt E&M Established 15 Mins [place] [facility], [address] [place] [address] [facility] 1000[address] 1000Cally [place], [id number], [place] tel:[phone] [facility] - [place] [facility] [place] Venous insufficiency (chronic) (peripheral) Apr-2 3 Dony Parisi. [address] [place] [address], [place], [address], [place]. tel:[phone] Referring Provider: Dipak Gant MD L, [address] [place] [address], [address], [place], [address]. tel:[phone] [facility], [address] [place] [address] Dr Wiley [address], [place], [id number], tel:[phone] [facility] - [place] [facility] [place] Venous insufficiency (chronic) (peripheral) Jul-0 3 Dony POWERS FACS Roseann Parisi. [address] [place] [address], [address], [place], [address], [place]. [phone] Referring Provider: Dipak Gant MD L, [address] [place] [address], [facility] B, [place], [address]. tel:[phone] Office/Oupt E&M New Pt 30 Mins [facility], [address] [place] [address] 1000[address], [place], [id number], [place] tel:[phone] [facility] - [place] [facility] [place] Venous insufficiency (chronic) (peripheral)[employer] Watch[employer] mp and spasm Mar-2 3 Dony POWERS FACS Roseann Parisi. [address] [place] [address], [place] [address], [place], [address], [place]. [phone] Referring Provider: Dipak Gant MD L, [address] [place] [address], [facility], [place], [address]. tel:[phone] Family History Family Member Type Diagnosis Age At Onset No Information Payers Payer name Insurance type Covered republican ID Authoriza tion(s) Medicare LEEANNA ZAIDI [id number] Medical Assistance LEEANNA LOVELACE [id number] Social History Type Description Quantity Date Captured [...] Information Instructions Date Instruction Additional Infor mation Compression stocking usage as conservative measure Related to Venous insufficiency (chronic) (peripheral) Patient education booklet given Related to Venous insufficiency (chronic) (peripheral) Lifestyle education Related to B joanne mass index (BMI) 26.0-26.9, adult Giving Encouragement to exercise Related to Body mass index (BMI) 26.0-26.9, adult Diet education Related to Body mass index (BMI) 26.0-26.9, adult Patient education booklet given Related to Chronic [...]
--- NOTE | 2024-12-24 08:29 | MHC.OFFVIS ---
Intake Visit Reasons: 1y/MRI Intake Note: Patient is present for: 1yr/MRI urology medications: tolterodine, finasteride blood thinners: none imaging done: 12/15/24 today's pvr: 0mls Lithographers Printer Required: No Accompanied by: Self / Same As Patient Allergies morphine Allergy (Severe, Verified 12/24/24 09:06) Anxiety diphenhydramine (From BENADRYL) Adverse Reaction (Intermediate, Verified 12/24/24 09:06) ANXIETY, AGITATION hydromorphone (HYDROMORPHONE) Adverse Reaction (Intermediate, Verified 12/24/24 09:06) SHAKING,CONFUSION,AGITATION, hyperacitivity codeine (Codeine) Adverse Reaction (Mild, Verified 12/24/24 09:06) AGITATION prochlorperazine (From Compazine) Adverse Reaction (Mild, Verified 12/24/24 09:06) AGITATION, hyperactivity flu vaccine Adverse Reaction (Intermediate, Uncoded 12/24/24 09:06) severe flu like symptoms Medication List - Last Reconciled 12/24/24 by ALEKSANDRA Coffman- amitriptyline 10 mg PO BEDTIME amoxicillin-pot clavulanate 875-125 mg 1 tab PO Q12H 10 days calcium-vitamin D3-vitamin K 500 mg-100 unit -40 mcg 1 tab PO DAILY cholecalciferol (vitamin D3) 50 mcg PO DAILY clobetasol 0.05% 1 appl topical BID diazepam 5 mg PO BID PRN dicyclomine 20 mg PO QID esomeprazole magnesium (Nexium) 40 mg PO DAILY finasteride 2.5 mg PO DAILY fluocinolone-hydroq.-tretinoin 0.01-4-0.05 % (Tri-Nyla) 1 appl topical BEDTIME fluticasone propionate 50 mcg/actuation (Allergy Relief (fluticasone)) 1 spray intranasal DAILY [grab handles As directed] ibuprofen 800 mg PO DAILY PRN lacosamide (Vimpat) 150 mg PO DAILY loratadine (Allergy Relief (loratadine)) 10 mg PO DAILY PRN meclizine 12.5 mg PO BID PRN minoxidil mg PO montelukast 10 mg PO DAILY nebulizers As directed omega 3-bjf-udb-fish oil 1,000 (120-180) mg (Fish Oil) 1 cap PO DAILY peg 974-agoudwkatfil-btxanirv 1-0.2-0.2 % (Artificial Tears ([id number]-heujxmdw)) 1 drp ophthalmic (eye) DAILY pravastatin 80 mg PO BEDTIME tolterodine ER 8 mg (2 x 4 mg) PO BEDTIME Ventolin HFA 90 mcg/actuation (albuterol sulfate) 2 puffs PO Q6H PRN NS Wixela Inhub 500-50 mcg/dose (fluticasone propion-salmeterol) 1 inh inhalation Q12H NS HPI Comments Details: Teri is a 69-year-old female patient of Dr. Rodgers. She has medical history of osteopenia, type 2 diabetes, peripheral venous insufficiency, seasonal allergies, fibromyalgia, history of breast cancer, intermittent asthma, migraines, anxiety, irritable bowel syndrome, GERD, osteoarthritis, mixed lipidemia, and renal cysts. She presents to the office today for follow-up of her complex renal cysts. Recent renal imaging results reviewed with the patient today. Abdominal MRI 12/14 Bosniak type 2 cysts, left kidney. Bosniak type 1 cysts, both kidneys. When asked she reports to be doing and feeling well. She denies having had any bothersome urinary issues or concerns since her last office visit here. She does report compliance with tolterodine. When asked she reports she only gets up 1 time per night to urinate. She does at times feel she goes frequently to the bathroom throughout the day however she states she does drink a lot of water. We did discussed healthy bathroom behaviors. In office urinalysis results reviewed with the patient today. PVR 0 mL. She denies incontinence, hematuria, dysuria, foul smelling urine, changes to urinary stream, flank pain, fever, and or chills. She is happy with her current voiding parameters. She otherwise offers no other issues or concerns at this time. [facility] Medical History Benign positional vertigo Venous insufficiency of both lower extremities History of osteopenia Type 2 diabetes mellitus without complication, without long-term current use of insulin Peripheral venous insufficiency Seasonal allergies Urinary incontinence Fibromyalgia affecting multiple sites Hx of breast cancer Glaucoma Mild intermittent asthma Migraine Generalized anxiety disorder Irritable bowel syndrome with diarrhea History of breast cancer GERD with esophagitis Osteoarthritis Mixed dyslipidemia Renal cyst Surgical History H/O vascular surgery Hx of right knee surgery Hx of sinus surgery H/O colonoscopy History of esophagogastroduodenoscopy (EGD) History of lumpectomy of right breast History of partial mastectomy of left breast History of right cataract surgery H/O bilateral oophorectomy S/P right knee arthroscopy History of foot surgery Family History Father Essential hypertension Diabetes mellitus Dyslipidemia CVA (cerebral vascular accident) Mental health disorder Mother Diabetes mellitus Dyslipidemia Essential hypertension Brother Diabetes mellitus Dyslipidemia Essential hypertension Maternal Aunt Ovarian cancer Paternal Aunt Mental health disorder Social History Housing: Apartment Alcohol intake: never Patient Tobacco Use Status: Never used Tobacco e-Cigarette/Vaping Use: Never Used Current occupational status: unemployed Cognitive needs: No Hearing needs: No Vision needs: No Review of Systems Const Reports as per HPI Eyes Reports no additional complaints ENT Reports no additional complaints Card Reports as per HPI Resp Reports as per HPI GI Reports as per HPI Reports as per HPI Musc Reports as per HPI Neuro Reports as per HPI Psych Reports as per HPI Endo Reports as per HPI Physical Exam Const General: cooperative, comfortable, no acute distress, well developed, alert and awake Orientation/consciousness: patient oriented x3 Limitations: no limitations HEENT Head: Yes normal to inspection, Yes normocephalic and Yes atraumatic Ears: hearing grossly normal bilaterally Eyes General: appearance normal, both eyes and all related structures Neck Neck: Yes normal visual inspection and Yes trachea midline Chest Chest palpation & inspection: normal inspection of the chest Resp Effort & Inspection: normal respiratory effort and able to speak in complete sentences Cardio Rate: regular rate GI Inspection: Yes normal to inspection General: Yes no CVA tenderness Back/Spine/Pelvis Back: no CVA tenderness Skin General skin exam: no rashes or lesions noted Neuro General: patient oriented x3 Extrem General: Yes normal to inspection Psych Appearance: grossly normal and well kempt Mental Status: mental status grossly normal Speech and movement: Normal speech and movement present and Clear speech present Affect: normal affect Attitude: cooperative Thought process: Normal thought process present Thought content: Normal thought content present Insight: Fair insight present (Psych) Judgement: Fair judgement present (Psych) Office Procedures Post Void Residual Post Residual Void Post Void Residual (PVR): 0 [id number]-[id number] Void Residual by ultrasound Results AMB Urinalysis, Automated UA Leukoctes 0 Juan Alberto/uL Last Edit by CHAYA Turner on 12/24/24 08:43 UA Nitrite Negative Last Edit by Denise Maza CCM on 12/24/24 08:43 UA Urobilinogen 3.5 mg/dL Last Edit by Denise Maza [facility] on 12/24/24 08:43 UA Protein 15 mg/dL Last Edit by Denise Maza [facility] on 12/24/24 08:43 UA pH 5.5 Last Edit by Denise Maza [facility] on 12/24/24 08:43 UA Blood 0 Andrzej/uL Last Edit by Denise Maza [facility] on 12/24/24 08:43 UA Specific [place] 1.025 Last Edit by CHAYA Turner on 12/24/24 08:43 UA Ketone Negative Last Edit by Denise Maza [facility] on 12/24/24 08:43 UA Bilirubin 0 mg/dL Last Edit by Denise Maza [facility] on 12/24/24 08:43 UA Glucose 0 mg/dL Last Edit by Denise Maza [facility] on 12/24/24 08:43 Results Reviewed Results Reviewed: Laboratory Last Values Urine pH (Auto) 5.5 12/24/24 08:42 Specific [place] (Auto) 1.025 12/24/24 08:42 Urine Protein (Auto) 15 mg/dL 12/24/24 08:42 Glucose (UA)(Auto) 0 mg/dL 12/24/24 08:42 Urine Ketones (Auto) Negative 12/24/24 08:42 Urine Blood (Auto) 0 Andrzej/uL 12/24/24 08:42 Urine Nitrite (Auto) Negative 12/24/24 08:42 Urine Bilirubin (Auto) 0 mg/dL 12/24/24 08:42 Urine Urobilinogen (Auto) 3.5 mg/dL 12/24/24 08:42 Leukocyte Esterase (Auto) 0 Juan Alberto/uL 12/24/24 08:42 Date of Service: 12/15/24 Procedure(s): MR abdomen wo/w con FINDINGS: LUNG BASES: No enhancing lesion. LIVER, GALLBLADDER, AND BILIARY TREE: Liver measures 14 cm. No focal mass. Main portal veins, hepatic veins and intrahepatic portion of the IVC are patent. Gallbladder is fluid-filled. Nondistended. No pericholecystic fluid collection or gallbladder wall thickening. Common bile duct measures 4 mm. PANCREAS: No focal mass. No main pancreatic ductal dilatation. No peripancreatic fluid collection. SPLEEN: 10 cm. No mass. ADRENAL GLANDS: No nodular lesions. KIDNEYS AND URETERS: Right kidney: No hydronephrosis. No renal mass. Normal enhancement pattern of the renal parenchyma. 9 mm fluid signal characteristic lesion at the corticomedullary junction of the lower pole. 3 mm nonenhancing cyst, anterior midportion. Left kidney: 22 mm exophytic thin septated nonenhancing fluid signal characteristic lesion, upper pole. 8 mm nonenhancing fluid signal characteristic lesion in the posterior upper pole midportion junction of the renal cortex. Large, 70 mm thin wall nonenhancing fluid signal characteristic lesion in the lower pole. 40 mm thin wall nonenhancing fluid signal characteristic in the anterior lower pole. 6 mm nonenhancing fluid signal characteristic lesion in the medial aspect of the midportion/lower pole junction. 10 mm nonenhancing fluid signal characteristic lesions in the parapelvic midportion. No hydronephrosis. No enhancing mass in the pararenal compartment/retroperitoneum. GASTROINTESTINAL TRACT: Abundant stool. No intestinal distention. Probable diverticulum in the fundus of the stomach. ABDOMINAL WALL: Small fat-containing umbilical hernia. LYMPH NODES: No mesenteric or retroperitoneal lymphadenopathy VASCULAR: No aneurysm or dissection, abdominal aorta. OSSEOUS STRUCTURES: Multilevel thoracolumbar spondylosis without acute fracture or gross listhesis. 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 IMPRESSION: Bosniak type II cysts, left kidney. Bosniak type I cyst, both kidneys. Assessment & Plan Assessment & Plan (1) Urge incontinence: Code(s): N39.41 - Urge incontinence Category: Medical (2) Renal cyst: Code(s): N28.1 - Cyst of kidney, acquired Category: Medical Plan In office urinalysis results reviewed with the patient today; as noted above. PVR 0 mL. Recent MRI imaging results reviewed with the patient today; as noted above. She currently denies any bothersome urinary issues or concerns. She reports be happy with current voiding parameters. We did discuss healthy bathroom behaviors. Will continue with surveillance monitoring. Continue tolterodine. Will obtain renal ultrasound in 1 year Follow-up in 1 year with imaging and PVR; or sooner with any issues, concerns, and or questions. Orders: Orders US renal BI 1 Year N28.1 - Cyst of kidney, acquired, N39.41 - Urge incontinence, R35.0 - Frequency of micturition AMB Post Void Residual by ultrasound Today N39.41 - Urge incontinence AMB Urinalysis Automated Today Z13.9 - Encounter for screening, unspecified Medications: Discontinued amoxicillin-pot clavulanate 875-125 mg Discontinued Reason: Patient Completed Course 1 tab PO Q12H 10 days 20 tabs 0RF J01.00 - Acute maxillary sinusitis, unspecified Patient Instructions: The patient had an opportunity to ask questions regarding the treatment plan. All questions were answered. Physical exam, labs, and imaging were discussed and reviewed in detail. As well as risks, benefits, and discussion of treatment choices. No major barriers to understanding were identified. The patient expressed understanding and agreement with the above treatment plan. The patient was made aware they should contact our office by phone for worsening of their current condition, the appearance of new symptoms, or with any questions or concerns. Compliance is encouraged with any medications and follow up testing that is ordered. It is a privilege to be allowed the opportunity to participate in? your urological care.? Again, if you have any questions or concerns If you have any questions or concerns please do not hesitate to contact me. The office is [phone]. This note is constructed using voice recognition software. While every effort has been made to ensure accuracy tile burner errors may have been included. Yours sincerely, ELSIE Coffman Coding Level of Care Code Est Pt Level 3 (61500) Complex EM visit Add On G2211 Diagnoses Urge incontinence N39.41 Renal cyst N28.1 CPT Codes Post Residual Void - PVR CPT Code: 95829-Ywdk Void Residual by ultrasound ([id number])
--- OUTSIDE RECORDS SUMMARY | 2024-12-24 08:56 | XMS_ITS | Patient Health Record ---
Author Organization [facility] Address [address] [place] [id number] Care Team Providers Care Accounting Consultant Name Role Phone Vishal POWERS, Brittany Primary Care Provider Yg Irby Jr Unavailable [phone] Allergies Allergen (clinical drug ingredient) Drug/Non Drug [...] Problem Status W/U Status Risk Notes Problem 740992838 Colon cancer screening (Z12.11) Active confirmed Problem History of polyp of colon (situation) (168617408) Personal history of colonic polyps (Z86.010) Active confirmed Problem [id number] Irritable bowel syndrome with diarrhea (K58.0) Active confirmed Problem [id number] Gastroesophageal reflux disease without esophagitis (K21.9) Active confirmed Problem 04919347 Esophageal spasm (K22.4) Active confirmed Encounters Encounter Location Date Provider Diagnosis [facility] [address] [facility] [address] [place] [id number] 07/22/2024 Yg Uribe Jr Plan Of Treatment [...] Start Date Coverage End Date MEDICARE OF [place] [address] [place] [id number] HENRY YUEN Self - patient is the insured MEDICAID OF [facility] [address] [place] [address] [phone] [id number] HENRY YUEN Self - patient is the [...]
== END 2024-12-24 09:04 | disposition home or self-care (01) ==
LOC: HO.HUSH 08:28
PROVIDERS: PCP Internal Medicine; Visit Provider Nurse Practitioner Family
DX: N39.41 Urge incontinence (principal); N28.1 Cyst of kidney, acquired; Z13.9 Encounter for screening, unspecified
CPT/HCPCS: 99213; G2211

== ENCOUNTER → 2024-12-24 08:27 | Outpatient (BNVA) | payer MEDICARE, MEDICAID, SELFPAY | PROVIDERS: PCP Internal Medicine; Visit Provider Nurse Practitioner Family | DX: N39.41 Urge incontinence (principal); N28.1 Cyst of kidney, acquired; Z13.9 Encounter for screening, unspecified | CPT/HCPCS: 51798; 81003; 99212 ==